=== PATIENT | female | born 1945 | race Caucasian/White ===

== ENCOUNTER → 2018-10-05 07:25 | Outpatient (CLI) | payer MEDICARE, OTHER, SELFPAY ==
[2018-10-05 08:16] LABS: Add Manual Diff / Slide Review NO; Basophils Absolute Auto 100 /uL (0-100); Basophils Percent Auto 0.8 % (0-2); Eosinophils Absolute Auto 300 /uL (0-450); Eosinophils Percent Auto 5.1 % (2-4); Hematocrit 40.6 % (36-46); Hemoglobin 13.9 g/dL (12.0-16.0); Lymphocytes Absolute Auto 1200 /uL (1100-4500); Lymphocytes Percent Auto 19.6 % (25-40); Mean Corpuscular HGB Conc 34.2 % (30-36); Mean Corpuscular Hemoglobin 31.7 PG (26-34); Mean Corpuscular Volume 92.9 fL (80-100); Monocytes Absolute Auto 400 /uL (0-900); Neutrophils Absolute Auto 4000 /uL (1500-7000); Neutrophils Percent Auto 67.5 % (50-75); Platelet Count 174 X10^3/uL (150-400); Red Blood Cell Count 4.37 X10^6/uL (4.0-5.2); Red Cell Distribution Width 13.5 % (11.6-14.8)
[2018-10-05 08:57] LABS: HEMOLYSIS < 15 (0-50); Iron 90 ug/dL (37-170)
[2018-10-05 09:07] LABS: Percent Iron Saturation 31 % (15-50); Total Iron Binding Capacity 293 ug/dL (265-497); Transferrin 227 mg/dL (206-381)
[2018-10-05 09:08] LABS: Alanine Aminotransferase 43 IU/L (9-52); Albumin 4.2 g/dL (3.5-5.0); Albumin Globulin Ratio 1.6 (1.0-2.8); Alkaline Phosphatase 61 U/L (38-126); Aspartate Aminotransferase 30 IU/L (14-36); BUN Creatinine Ratio 22.9 (6-22); Bilirubin Total 0.7 mg/dL (0.2-1.3); Blood Urea Nitrogen 16 mg/dL (7-17); Calcium 9.9 mg/dL (8.4-10.2); Carbon Dioxide 22 mmol/L (22-32); Chloride 110 mmol/L (98-107); Cholesterol 194 mg/dL (140-199); Creatinine Urine Random 141.5 mg/dL; Estimated Glomerular Filt Rate > 60.0 mL/min (>60); Globulin 2.7 g/dL (1.7-4.1); Glucose 95 mg/dL (80-110); HDL Cholesterol 47 mg/dL (40-60); HEMOLYSIS < 15 (0-50); LDL Cholesterol Calculated 125 mg/dL (<100); Potassium 3.8 mmol/L (3.4-5.1); Sodium 141 mmol/L (137-145); Total Protein 6.9 g/dL (6.3-8.2); Triglycerides 109 mg/dL (35-150)
[2018-10-05 09:13] LABS: Microalbumin Urine Random 2.7 mg/dL (0-1.6)
[2018-10-05 09:32] LABS: Ferritin 74.8 ng/mL (11.1-264)
[2018-10-05 09:46] LABS: Vitamin B12 432 pg/mL (239-931)
== END ==
PROVIDERS: Visit Provider Physician Assistant
DX: I10 Essential (primary) hypertension (principal); I49.9 Cardiac arrhythmia, unspecified; R01.1 Cardiac murmur, unspecified; R06.00 Dyspnea, unspecified; R06.01 Orthopnea; R06.02 Shortness of breath; R53.83 Other fatigue
CPT/HCPCS: 36415; 80053; 80061; 82043; 82570; 82607; 82728; 83540; 83550; 85025

== ENCOUNTER → 2018-10-13 08:16 | Outpatient (CLI) | payer MEDICARE, OTHER, SELFPAY ==
--- NOTE | 2018-10-13 08:17 | DI.ECHO.S_ITS ---
[facility] +---------+ : : [address] : [address] : : : : [id number] : : : : Phone: [phone]+ Echocardiogram Report + + :Name: ASIF FONTANEZ Study Date: 10/13/2018 Height: 70 in : :[facility] Weight: 209 lb : : Gender: Female BSA: 2.1 m2 : :: 1945 Age: 72 yrs BP: 140/74 mmHg: :Reason For Study: Murmur : : Performed By: Lulu Sparks : :Referring: LAURIE VILLALOBOS : + + Interpretation Summary Normal left ventricle size with ejection fraction 60-65%. Grade I diastolic dysfunction. Moderately dilated left atrium. Mild tricuspid regurgitation. There is no hemodynamically significant valvular aortic stenosis. Mild to moderate aortic regurgitation. The ascending aorta is moderate-severely enlarged (4.7 cm). The aortic arch is severely enlarged (4.6 cm). Procedure: A two-dimensional transthoracic echocardiogram with color flow and Doppler was performed. The study quality was technically adequate. There is no prior echocardiogram noted for this patient. The heart rate ranged between 44-50 bpm during the study. Left Ventricle: The left ventricle is normal in size. There is normal left ventricular wall thickness. The ejection fraction is estimated to be 60-65%. There are no focal wall motion abnormalities. Diastolic parameters suggest a relaxation abnormality of the left ventricle, consistent with probable normal filling pressures. Right Ventricle: The right ventricle grossly appears normal in size with probable normal systolic function. Atria: The left atrium is moderately dilated. Right atrial size is normal. The interatrial septum is intact with no evidence for an atrial septal defect. Mitral Valve: The mitral valve is normal in structure and function. There is no mitral regurgitation noted. Aortic Valve: The aortic valve is trileaflet. The aortic valve opens well. The calculated aortic valve area is 1.3 cm2. The peak aortic velocity is 2.3 m/sec. The aortic valve mean gradient is 9 mmHg. Severity ratio is 0.54. There is no hemodynamically significant valvular aortic stenosis. There is mild to moderate aortic regurgitation. Tricuspid Valve: The tricuspid valve leaflets are thin and pliable. There is mild tricuspid regurgitation. The right ventricular systolic pressure is estimated to be at least 24 mmHg based on an estimated right atrial pressure of 3 mm Hg. Pulmonic Valve: The pulmonic valve is not well seen, but is grossly normal. There is no pulmonic valvular regurgitation. Great Vessels: The aortic root is normal size. The ascending aorta is moderate-severely enlarged. The aortic arch is severely enlarged. The IVC is of normal diameter and collapses greater than 50% with a sniff. This suggests a low right atrial pressure of 3 mm Hg. Pericardium/ Pleura There is no pericardial effusion. There is no pleural effusion. MMode/2D Measurements & Calculations LVIDd: 4.2 cm LVOT diam: 2.0 cm LVIDs: 2.3 cm Ao root diam: 3.3 cm FS: 45.1 % Aortic Jxn: 3.2 cm EPSS: 0.48 cm asc Aorta Diam: 4.6 cm IVSd: 0.98 cm Ao Arch Diam (Prox Trans): 4.6 cm LVPWd: 1.0 cm LV michele. diameter/BSA (cm/m^2): 2.0 LV sys. diameter/BSA (cm/m^2): 1.1 LA dimension: 4.1 cm RA long axis: 5.5 cm LA A2 area: 27.2 cm2 RA area: 18.2 cm2 LA A4 area: 24.8 cm2 RA vol: 51.2 ml LA length (vol): 5.9 cm RA : 24.1 ml/m2 LA vol: 97.5 ml LA vol index: 45.9 ml/m2 Doppler Measurements & Calculations Ao V2 max: 227.6 cm/sec LVOT Max William: 100.7 cm/sec Ao V2 mean: 130.5 cm/sec LV V1 max P.1 mmHg Ao max P.7 mmHg LV V1 VTI: 25.8 cm Ao mean P.5 mmHg SIDNEY(I,D): 1.6 cm2 Ao V2 VTI: 47.8 cm SIDNEY(V,D): 1.3 cm2 sev ratio: 0.54 SIDNEY indexed to BSA (cm^2/m^2): 0.77 AI P1/2t: 1065 msec AI dec slope: 119.4 cm/sec2 MV E max william: 59.1 cm/sec TR max william: 227.6 cm/sec MV A max william: 90.8 cm/sec TR max P.7 mmHg MV E/A: 0.65 PA V2 max: 100.6 cm/sec Med Peak E' William: 5.6 cm/sec PA V2 mean: 58.6 cm/sec E/E' med: 10.6 PA mean P.7 mmHg Lat Peak E' William: 7.2 cm/sec PA Accel Time: 0.25 sec E/E' lat: 8.3 E/e' average: 9.4 MV dec time: 0.33 sec SV([facility]): 78.5 ml Electronically signed by: Zhane Hernández on Reading Physician:10/13/2018 03:49 PM
== END ==
PROVIDERS: Family Provider Family Medicine; Visit Provider Physician Assistant
DX: I08.2 Rheumatic disorders of both aortic and tricuspid valves (principal); I77.810 Thoracic aortic ectasia; R01.1 Cardiac murmur, unspecified; M85.852 Other specified disorders of bone density and structure, left thigh; Z78.0 Asymptomatic menopausal state; E28.39 Other primary ovarian failure; K52.9 Noninfective gastroenteritis and colitis, unspecified; I10 Essential (primary) hypertension; R53.83 Other fatigue; R06.00 Dyspnea, unspecified; Z90.722 Acquired absence of ovaries, bilateral
CPT/HCPCS: 77080; 93306

== ENCOUNTER 2018-11-06 22:31 | Emergency (ER) | payer MEDICARE, OTHER, SELFPAY ==
[2018-11-06 22:45] VITALS: BP 172/92; PULSE 73; RESP 18; TEMP 36.3; O2SAT 100; BMI 28.7
--- NOTE | 2018-11-06 22:56 | DI.RAD.S_ITS ---
PROCEDURE: XR CHEST 1V INDICATIONS: chest pain TECHNIQUE: One view of the chest was acquired. COMPARISON: [facility], , CT THORAX WITH CONTRAST, 06/18/2006, 12:41. FINDINGS: Surgical changes and devices: None. Lungs and pleura: Lungs are clear. No pleural effusions or pneumothorax. Mediastinum: Mediastinal contours appear normal. Heart size is normal. Bones and chest wall: No suspicious bony lesions. Overlying soft tissues appear unremarkable. IMPRESSION: No acute cardiopulmonary disease. Dictated by: Marlen Borges M.D. on 11/07/2018 at 9:29 Approved by: Marlen Borges M.D. on 11/07/2018 at 9:29
--- NOTE | 2018-11-06 23:10 | ED_ITS ---
HPI - Arrhythmia/Palpitations General Chief Complaint: Arrhythmia/Palpitations Stated Complaint: AFIB Time Seen by Provider: 11/06/18 22:33 Source: patient and family Mode of arrival: ambulatory Limitations: no limitations History of Present Illness HPI narrative: 72F nonsmoker with history undocumented a rhythm is, hypertension asthma presents with her in the chief complaint of an episode of palpitations just prior to arrival. 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 Her symptoms had resolved prior to her arrival. She denies any chest pain or shortness of breath. She de nies dizziness, weakness or lightheadedness. She denies any significant caffeine nicotine or alcohol use. MD complaint: rapid heart beat and heart racing Onset (ago): hour(s) Duration: now resolved Severity: mild Context: occurred during rest Associated symptoms: denies other symptoms Related Data Home Medications Medication Instructions Recorded Confirmed CA PANTOTHENATE/FOLIC ACID/VIT 1 tab PO QDAY #0 03/26/13 10/03/18 (MULTIVITAMIN) Calcium Carbonate/Vitamin D 1 tab PO .QDAY 10/03/18 10/03/18 VITAMIN A 1 cap PO .QDAY 10/03/18 10/03/18 Vitamin C 1 tab PO .QDAY PRN 10/03/18 10/03/18 Previous Rx's Medication Instructions Recorded albuterol sulfate HFA 90 2 puff INHALATION Q4-6H PRN #18 10/03/18 mcg/actuation aerosol inhaler gram fluticasone 50 mcg/actuation nasal 1 spray INTRANASAL BID PRN #1 bot 10/03/18 spray,suspension hydrochlorothiazide 12.5 mg tablet 12.5 mg PO DAILY #30 tab 10/03/18 lisinopril 10 mg tablet 10 mg PO BID #60 tab 10/03/18 pneumococcal 13-neftaly conj 0.5 ml IM ONCE #0.5 ml 10/03/18 vaccine-dip crm (PF) 0.5 mL IM syringe potassium chloride 20 meq PO DAILY 5 Days tab 11/06/18 Allergies Allergy/AdvReac Type Severity Reaction Status Date / Time Penicillins [PENICILLINS] Allergy Severe ANAPHYLAXIS Unverified 10/03/18 10:51 Review of Systems Constitutional Denies chills, Denies fever(s), Denies lethargy and Denies weakness Eyes Denies change in vision, Denies eye discharge, Denies irritation and Denies loss of vision ENT Ears, Nose, Mouth, and Throat: Denies change in voice, Denies neck pain and Denies sore throat Cardiovascular Denies chest pain, Reports irregular heart rhythm, Denies lightheadedness, Reports palpitations, Denies dyspnea, Denies dyspnea on exertion and Denies orthopnea Respiratory Denies cough, Denies dyspnea, Denies dyspnea on exertion and Denies wheezing Gastrointestinal Gastrointestinal: Denies abdominal pain, Denies change in bowel habits, Denies diarrhea, Denies nausea and Denies vomiting Genitourinary Denies hematuria, Denies flank pain, Denies urinary incontinence and Denies urinary urgency Musculoskeletal Denies neck pain Integumentary/Breasts Denies pruritus, Denies erythema, Denies rash and Denies wounds Neurologic Denies confusion, Denies loss of vision and Denies weakness Psychiatric Denies anxiety, Denies confusion, Denies depression, Denies homicidal ideation and Denies suicidal ideation Endocrine Reports palpitations Hematologic/Lymphatic Denies easy bruising Allergic/Immunologic Denies wheezing PFSH Surgical History Status post hysterectomy Social History Smoking Status: Never smoker second hand exposure: No alcohol intake: current (a glass of wine once in a while maybe 2 to 3 a month s.) substance use type: does not use Social History Smoking Status: Never smoker second hand exposure: No alcohol intake: current (a glass of wine once in a while maybe 2 to 3 a months.) substance use type: does not use Exam Narrative Exam Narrative: GENERAL: This is a well-nourished, well-developed patient, in mild distress. HEAD: Atraumatic. Normocephalic. No temporal or scalp tenderness. EYES: Pupils equal round and reactive. Extraocular motions intact. No scleral icterus. No injection or drainage. ENT: Nose without bleeding, purulent drainage or septal hematoma. Throat without erythema, tonsillar hypertrophy or exudate. Uvula midline. Airway patent. NECK: Trachea midline. No JVD or lymphadenopathy. Supple, nontender, no meni ngeal signs. CARDIOVASCULAR: Regular rate and rhythm without murmurs, gallops, or rubs. RESPIRATORY: Clear to auscultation. Breath sounds equal bilaterally. No wheezes, rales, or rhonchi. GASTROINTESTINAL: Abdomen soft, non-tender, nondistended. No hepato- splenomegaly, or palpable masses. No guarding. EXTREMITIES: No clubbing, cyanosis, or edema. No joint tenderness, effusion, or edema noted. BACK: Nontender without deformity or crepitance. No flank tenderness. NEURO: AOx3. SKIN: No rash or erythema. Initial Vital Signs Initial Vital Signs: Vital Signs Temperature 97.4 F L 11/06/18 22:45 Pulse Rate 73 11/06/18 22:45 Respiratory Rate 18 11/06/18 22:45 Blood Pressure 172/92 H 11/06/18 22:45 Pulse Oximetry 100 11/06/18 22:45 Course Orders Ordered: ED Orders 11/06/18 22:56 XR chest 1V Stat 11/06/18 23:18 Basic Metabolic Panel Stat Complete Blood Count AUTO DIFF Stat Magnesium Stat Thyroid Stimulating Hormone Stat Troponin & CK Cardiac Panel Stat Discontinued Medications Sodium Chloride (Normal Saline 0.9%) 1,000 mls @ 150 mls/hr IV CONT JOHNATHAN Last Admin: 11/06/18 23:55 Dose: Not Given Potassium Chloride (Potassium Chloride) 40 meq PO NOW ONE Stop: 11/06/18 23:43 Last Admin: 11/06/18 23:50 Dose: 40 meq Vital Signs - 8 hr 11/06/18 22:45 11/06/18 23:41 Temperature 97.4 F L Pulse Rate 73 72 Respiratory Rate 18 21 Blood Pressure 172/92 H Blood Pressure [Left Arm] 126/77 Pulse Oximetry 100 97 MDM - Arrhythmia/Palpitations Differential Diagnosis Differential diagnosis: Likely palpitations Medical Records Attestation: I reviewed the patient's medical records. Lab Data Attestation: I reviewed the patient's lab results. Result diagrams: 11/06/18 23:18 11/06/18 23:18 Lab Results 11/06/18 11/06/18 11/06/18 Range/Units 23:18 23:18 23:18 WBC 5.9 (4.5-11.0) X10^3/uL RBC 4.35 (4.0-5.2) X10^6/uL Hgb 13.7 (12.0-16.0) g/dL Hct 39.2 (36-46) % MCV 90.3 (80-100) fL MCH 31.5 (26-34) PG MCHC 34.9 (30-36) % RDW 12.6 (11.6-14.8) % Plt Count 169 (150-400) X10^3/uL Neut % (Auto) 62.3 (50-75) % Lymph % (Auto) 23.4 L (25-40) % [place] % (Auto) 8.3 (3-14) % Eos % (Auto) 4.9 H (2-4) % Baso % (Auto) 1.1 (0-2) % Neut # (Auto) 3700 (1186-3700) /uL Lymph # (Auto) 1400 (3500-8986) /uL [place] # (Auto) 500 (0-900) /uL Eos # (Auto) 300 (0-450) /uL Baso # (Auto) 100 (0-100) /uL Sodium 140 (137-145) mmol/L Potassium 3.1 L (3.4-5.1) mmol/L Chloride 110 H (98-107) mmol/L Carbon Dioxide 20 L (22-32) mmol/L BUN 24 H (7-17) mg/dL Creatinine 0.80 (0.52-1.04) mg/dL Estimated GFR > 60.0 (>60) mL/min BUN/Creatinine Ratio 30.0 H (6-22) Glucose 105 (80-110) mg/dL Calcium 10.3 H (8.4-10.2) mg/dL Magnesium 1.8 (1.6-2.3) mg/dL Total Creatine Kinase 256 H (30-135) U/L CK-MB (CK-2) 13.40 H (<2.37) ng/mL CK-MB (CK-2) Rel Index 5.2 H (1.5-5.0) % Troponin I 0.017 (0.01-0.034) ng/mL TSH 3.24 (0.47-4.68) uIU/mL ECG Data Attestation: I personally reviewed and interpreted this ECG as follows: Prior ECG tracings: not available for review Interpretation: EKG is normal sinus rhythm rate [ 73] and free of any signs of ischemia or ectopy. No ST segmental elevation or depression. No T wave inversions MDM Narrative Medical decision making narrative: Multiple etiologies for patient's symptoms considered including: [Atrial fibrillation, other tachyarrhythmia, versus other potentially relieve his] Patient's symptoms improved or duration of stay with above-stated therapies. Findings and discharge diagnosis discussed with patient/family followed by verbalization of understanding Return precautions discussed with patient/family whom verbalize understanding. Discharge Plan Departure Patient Disposition: Home Clinical Impression: Heart palpitations, Acute hypokalemia Discharge Date/Time: 11/07/18 00:08 Interventions: ED Discharge Assessment Last Done: 11/07/18 00:07 Instructions: Arrhythmias Activity Restrictions/Additional Instructions: *You have been diagnosed with [ hypokalemia and arrhythmia, likely AFib ] *What to do: *Take medications as directed *Follow up with your primary care provider in 2-3 days, call for an appointment. Let them know you were seen in the Emergency Department and that we ask that you be seen in follow up *Return to ER if you should have any new, worsening or concerning symptoms Prescriptions: New potassium chloride 20 mEq tablet extended release 20 meq PO DAILY 5 Days RF: 0 No Action Calcium Carbonate/Vitamin D 1 tab PO .QDAY RF: 0 VITAMIN A 1 cap PO .QDAY RF: 0 Vitamin C 1 tab PO .QDAY PRNRF: 0 hydrochlorothiazide 12.5 mg tablet 12.5 mg PO DAILY Qty: 30 RF: 1 pneumoc 13-neftaly conj-dip cr(PF) [Prevnar 13 (PF)] 0.5 mL syringe 0.5 ml IM ONCE Qty: 0.5 RF: 0 lisinopril 10 mg tablet 10 mg PO BID Qty: 60 RF: 1 fluticasone [Flonase Allergy Relief] 50 mcg/actuation spray,suspension 1 spray Intranasal BID PRN (Reason: allergy symptoms) Qty: 1 RF: 1 albuterol sulfate 90 mcg/actuation HFA aerosol inhaler 2 puff INHALATION Q4-6H PRN (Reason: shortness of breath or wheezing) Qty: 18 RF: 3 CA PANTOTHENATE/FOLIC ACID/VIT (MULTIVITAMIN) 1 tab PO QDAY Qty: 0 RF: 0 Referrals: Hortensia Mina MD [Physician] -
[2018-11-06 23:29] LABS: Add Manual Diff / Slide Review NO; Basophils Absolute Auto 100 /uL (0-100); Basophils Percent Auto 1.1 % (0-2); Eosinophils Absolute Auto 300 /uL (0-450); Eosinophils Percent Auto 4.9 % (2-4); Hematocrit 39.2 % (36-46); Hemoglobin 13.7 g/dL (12.0-16.0); Lymphocytes Absolute Auto 1400 /uL (1100-4500); Lymphocytes Percent Auto 23.4 % (25-40); Mean Corpuscular HGB Conc 34.9 % (30-36); Mean Corpuscular Hemoglobin 31.5 PG (26-34); Mean Corpuscular Volume 90.3 fL (80-100); Monocytes Absolute Auto 500 /uL (0-900); Monocytes Percent Auto 8.3 % (3-14); Neutrophils Absolute Auto 3700 /uL (1500-7000); Neutrophils Percent Auto 62.3 % (50-75); Platelet Count 169 X10^3/uL (150-400); Red Blood Cell Count 4.35 X10^6/uL (4.0-5.2); Red Cell Distribution Width 12.6 % (11.6-14.8); White Blood Cell Count 5.9 X10^3/uL (4.5-11.0)
[2018-11-06 23:35] LABS: Blood Urea Nitrogen 24 mg/dL (7-17); Calcium 10.3 mg/dL (8.4-10.2); Carbon Dioxide 20 mmol/L (22-32); Chloride 110 mmol/L (98-107); Creatine Kinase 256 U/L (30-135); Estimated Glomerular Filt Rate > 60.0 mL/min (>60); Glucose 105 mg/dL (80-110); HEMOLYSIS < 15 (0-50); Magnesium 1.8 mg/dL (1.6-2.3); Potassium 3.1 mmol/L (3.4-5.1); Sodium 140 mmol/L (137-145)
[2018-11-06 23:41] VITALS: BP 126/77; PULSE 72; RESP 21; O2SAT 97
[2018-11-06 23:47] LABS: Troponin I 0.017 ng/mL (0.01-0.034)
[2018-11-06 23:50] LABS: CKMB % Relative Index 5.2 % (1.5-5.0)
[2018-11-06] MEDS: POTASSIUM CHLORIDE 20 MEQ/15 ML UDC 40 MEQ PO (23:50)
[2018-11-07 00:29] LABS: Thyroid Stimulating Hormone 3.24 uIU/mL (0.47-4.68)
== END 2018-11-07 00:08 | disposition home or self-care (01) ==
PROVIDERS: Emergency Provider Emergency Medicine; Family Provider Family Medicine
DX: R00.2 Palpitations (principal); E87.6 Hypokalemia
CPT/HCPCS: 36415; 71045; 80048; 82550; 82553; 83735; 84443; 84484; 85025; 93005; 93041; 99284; 99285

== ENCOUNTER 2018-12-24 19:49 | Emergency (ER) | payer MEDICARE, OTHER, SELFPAY ==
[2018-12-24 20:01] VITALS: BP 197/86; PULSE 64; RESP 16; TEMP 36.6; O2SAT 100; BMI 29.2
--- NOTE | 2018-12-24 20:11 | ED_ITS ---
HPI - General Adult <MIRANDA Soto - Last Filed: 12/24/18 21:07> General Chief complaint: Hypertension Stated complaint: states blood pressure is high Time Seen by Provider: 12/24/18 19:56 Source: patient Mode of arrival: ambulatory Limitations: no limitations History of Present Illness HPI narrative: pt states her bp has been running high, so her pcp increased her lisinolpril from 20mg to 40mg once a day, and she takes it at night and took her does about 30min ago, tonight when she checked her bp is was 185/105 and that scared her so she came here, she also feels a little dizzy and has headache Onset (ago): minute(s) Relieving factors: none Exacerbating factors: none Associated symptoms: shortness of breath (says she has been sob for about 2 weeks and thinks that is from her allergies and asthma issues, nothing new or different tonight) Treatments prior to arrival: other (lisinopril 40mg ) Related Data Home Medications Medication Instructions Recorded Confirmed CA PANTOTHENATE/FOLIC ACID/VIT 1 tab PO QDAY #0 03/26/13 10/03/18 (MULTIVITAMIN) Calcium Carbonate/Vitamin D 1 tab PO .QDAY 10/03/18 10/03/18 VITAMIN A 1 cap PO .QDAY 10/03/18 10/03/18 Vitamin C 1 tab PO .QDAY PRN 10/03/18 10/03/18 lisinopril 40 mg PO DAILY 12/24/18 Previous Rx's Medication Instructions Recorded albuterol sulfate HFA 90 2 puff INHALATION Q4-6H PRN #18 10/03/18 mcg/actuation aerosol inhaler gram fluticasone propionate 50 1 spray INTRANASAL BID PRN #1 bot 10/03/18 mcg/actuation nasal spray,suspension pneumococcal 13-neftaly conj 0.5 ml IM ONCE #0.5 ml 10/03/18 vaccine-dip crm (PF) 0.5 mL IM syringe hydrochlorothiazide 12.5 mg tablet 12.5 mg PO DAILY #30 tab 11/29/18 Allergies Allergy/AdvReac Type Severity Reaction Status Date / Time Penicillins [PENICILLINS] Allergy Severe ANAPHYLAXIS Verified 12/24/18 20:00 Review of Systems <MIRANDA Soto - Last Filed: 12/24/18 21:07> Constitutional Reports as per HPI, Reports system reviewed and no additional complaints, except as docu, Denies fever(s) and Reports headache(s) Eyes Denies blurry vision, Denies change in vision, Denies loss of vision, Denies other visual disturbances and Denies eye pain ENT Ears, Nose, Mouth, and Throat: Reports dizziness, Denies otalgia, Denies facial pain, Reports headache(s) and Denies neck pain Cardiovascular Denies chest pain, Denies irregular heart rhythm and Reports dyspnea Respiratory Reports dyspnea Musculoskeletal Denies back pain, Denies neck pain and Denies numbness Neurologic Reports dizziness, Reports headache(s), Denies focal weakness, Denies loss of vision, Denies numbness and Denies other visual disturbances PFSH <MIRANDA Soto - Last Filed: 12/24/18 21:07> Surgical History Status post hysterectomy Social History Smoking Status: Never smoker second hand exposure: No alcohol intake: current (a glass of wine once in a while maybe 2 to 3 a months.) substance use type: does not use Social History Smoking Status: Never smoker second hand exposure: No alcohol intake: current (a glass of wine once in a while maybe 2 to 3 a months.) substance use type: does not use Exam <MIRANDA Soto - Last Filed: 12/24/18 21:07> Initial Vital Signs Initial Vital Signs: Vital Signs Temperature 97.8 F 12/24/18 20:01 Pulse Rate 64 12/24/18 20:01 Respiratory Rate 16 12/24/18 20:01 Blood Pressure 197/86 H 12/24/18 20:01 Pulse Oximetry 100 12/24/18 20:01 Const General: cooperative, healthy appearing, comfortable, well developed and well groomed Nutritional Appearance: average body habitus Orientation: alert, awake and oriented x3 HENMT Head: normal to inspection and normocephalic Ears: hearing grossly normal bilaterally, external ears normal, TM's normal bilaterally and mastoids normal Nose: external nose normal and nares normal Face and sinus: normal facial exam, sinuses nontender and face symmetric Mouth: oral mucosae normal, lip normal, tongue normal, oropharynx normal and moist mucous membranes Teeth and gingiva: dentition normal and gingiva normal Throat: posterior oropharynx normal, tonsils normal and uvula midline Eyes General: appearance normal, both eyes and all related structures Visual Patel: normal visual patel by confrontation Eyelids: eyelids normal Conjunctivae: conjunctivae normal Sclera: sclerae normal Pupils: PERRL EOM: EOM intact bilaterally Neck Neck: normal visual inspection, full ROM, no meningeal signs, trachea midline, supple and No lymphadenopathy Chest Chest: normal inspection of the chest Resp Effort & Inspection: normal respiratory effort and able to speak in complete sentences Auscultation: clear to auscultation bilaterally Cardio Rate: regular rate Rhythm: regular rhythm Heart Sounds: S1 normal and S2 normal Back/Spine/Pelvis Cervical Spine: cervical ROM normal Thoracic/Lumbar Spine: thoraco-lumbar ROM normal Skin General: no rashes or lesions noted, elasticity normal, turgor normal and dry skin Neuro General: alert, awake, oriented x3 and meningeal signs present Cognition: normal cognition Speech: speech normal Gait: normal gait Motor: muscle tone normal throughout Sensory Exam: no sensory deficits noted Extrem General: normal to inspection and full ROM Psych Appearance: grossly normal and well kempt Mental Status: mental status grossly normal Speech and Movement: speech and movement normal Mood: congruent mood Affect: normal affect Attitude: cooperative Thought Process: normal Thought Content: normal Judgment: judgment good <Lisa Ball DO - Last Filed: 12/25/18 09:24> Initial Vital Signs Initial Vital Signs: Vital Signs Temperature 97.8 F 12/24/18 20:01 Pulse Rate 64 12/24/18 20:01 Respiratory Rate 16 12/24/18 20:01 Blood Pressure 197/86 H 12/24/18 20:01 Pulse Oximetry 100 12/24/18 20:01 Course <MIRANDA Soto - Last Filed: 12/24/18 21:07> Course Narrative: 2100 results and dc plan discussed, pt to continue to monitor her bp and call her dr with her results, current bp 150/70 and pt says she feels fine and back to normal now Orders Ordered: ED Orders 12/24/18 20:05 EKG-12 Lead Stat 12/24/18 20:20 Complete Blood Count AUTO DIFF Stat Comprehensive Metabolic Panel Stat Troponin & CK Cardiac Panel Stat Vital Signs - 8 hr 12/24/18 20:01 12/24/18 20:51 Temperature 97.8 F Pulse Rate 64 58 L Respiratory Rate 16 17 Blood Pressure 197/86 H Blood Pressure [Right Arm] 163/65 H Pulse Oximetry 100 <Lisa Ball DO - Last Filed: 12/25/18 09:24> Orders Ordered: ED Orders 12/24/18 20:05 EKG-12 Lead Stat 12/24/18 20:20 Complete Blood Count AUTO DIFF Stat Comprehensive Metabolic Panel Stat Troponin & CK Cardiac Panel Stat Vital Signs - 8 hr 12/24/18 20:01 12/24/18 20:51 Temperature 97.8 F Pulse Rate 64 58 L Respiratory Rate 16 17 Blood Pressure 197/86 H Blood Pressure [Right Arm] 163/65 H Pulse Oximetry 100 Medical Decision Making <MIRANDA Soto - Last Filed: 12/24/18 21:07> Differential Diagnosis uncontrolled htn, htn crisis, tia, cva, mi, anxiety, electrolyte imbalance Lab Data Result diagrams: 12/24/18 20:20 12/24/18 20:20 Lab Results 12/24/18 12/24/18 Range/Units 20:20 20:20 WBC 7.3 (4.5-11.0) X10^3/uL RBC 3.82 L (4.0-5.2) X10^6/uL Hgb 12.0 (12.0-16.0) g/dL Hct 34.9 L (36-46) % MCV 91.4 (80-100) fL MCH 31.5 (26-34) PG MCHC 34.5 (30-36) % RDW 13.4 (11.6-14.8) % Plt Count 176 (150-400) X10^3/uL Neut % (Auto) 65.1 (50-75) % Lymph % (Auto) 21.8 L (25-40) % [place] % (Auto) 7.5 (3-14) % Eos % (Auto) 4.7 H (2-4) % Baso % (Auto) 0.9 (0-2) % Neut # (Auto) 4700 (3657-8365) /uL Lymph # (Auto) 1600 (3058-0528) /uL [place] # (Auto) 500 (0-900) /uL Eos # (Auto) 300 (0-450) /uL Baso # (Auto) 100 (0-100) /uL Sodium 140 (137-145) mmol/L Potassium 3.4 (3.4-5.1) mmol/L Chloride 108 H (98-107) mmol/L Carbon Dioxide 23 (22-32) mmol/L BUN 20 H (7-17) mg/dL Creatinine 0.90 (0.52-1.04) mg/dL Estimated GFR > 60.0 (>60) mL/min BUN/Creatinine Ratio 22.2 H (6-22) Glucose 96 (80-110) mg/dL Calcium 9.8 (8.4-10.2) mg/dL Total Bilirubin 0.3 (0.2-1.3) mg/dL AST 36 (14-36) IU/L ALT 48 (9-52) IU/L Alkaline Phosphatase 55 (38-126) U/L Total Creatine Kinase 534 H (30-135) U/L CK-MB (CK-2) 18.50 H (<2.37) ng/mL CK-MB (CK-2) Rel Index 3.5 (1.5-5.0) % Troponin I 0.014 (0.01-0.034) ng/mL Total Protein 6.9 (6.3-8.2) g/dL Albumin 4.2 (3.5-5.0) g/dL Globulin 2.7 (1.7-4.1) g/dL Albumin/Globulin Ratio 1.6 (1.0-2.8) ECG Data Attestation: I personally reviewed and interpreted this ECG as follows: (ekg reviewed by me and Dr Bolaños, sinus elisa, hr 59) Prior ECG tracings: not available for review <Lisa Ball, - Last Filed: 12/25/18 09:24> Lab Data Lab Results 12/24/18 12/24/18 Range/Units 20:20 20:20 WBC 7.3 (4.5-11.0) X10^3/uL RBC 3.82 L (4.0-5.2) X10^6/uL Hgb 12.0 (12.0-16.0) g/dL Hct 34.9 L (36-46) % MCV 91.4 (80-100) fL MCH 31.5 (26-34) PG MCHC 34.5 (30-36) % RDW 13.4 (11.6-14.8) % Plt Count 176 (150-400) X10^3/uL Neut % (Auto) 65.1 (50-75) % Lymph % (Auto) 21.8 L (25-40) % [place] % (Auto) 7.5 (3-14) % Eos % (Auto) 4.7 H (2-4) % Baso % (Auto) 0.9 (0-2) % Neut # (Auto) 4700 (8986-6941) /uL Lymph # (Auto) 1600 (8159-5731) /uL [place] # (Auto) 500 (0-900) /uL Eos # (Auto) 300 (0-450) /uL Baso # (Auto) 100 (0-100) /uL Sodium 140 (137-145) mmol/L Potassium 3.4 (3.4-5.1) mmol/L Chloride 108 H (98-107) mmol/L Carbon Dioxide 23 (22-32) mmol/L BUN 20 H (7-17) mg/dL Creatinine 0.90 (0.52-1.04) mg/dL Estimated GFR > 60.0 (>60) mL/min BUN/Creatinine Ratio 22.2 H (6-22) Glucose 96 (80-110) mg/dL Calcium 9.8 (8.4-10.2) mg/dL Total Bilirubin 0.3 (0.2-1.3) mg/dL AST 36 (14-36) IU/L ALT 48 (9-52) IU/L Alkaline Phosphatase 55 (38-126) U/L Total Creatine Kinase 534 H (30-135) U/L CK-MB (CK-2) 18.50 H (<2.37) ng/mL CK-MB (CK-2) Rel Index 3.5 (1.5-5.0) % Troponin I 0.014 (0.01-0.034) ng/mL Total Protein 6.9 (6.3-8.2) g/dL Albumin 4.2 (3.5-5.0) g/dL Globulin 2.7 (1.7-4.1) g/dL Albumin/Globulin Ratio 1.6 (1.0-2.8) ECG Data Attestation: I personally reviewed and interpreted this ECG as follows: Prior ECG tracings: available for review Interpretation: Sinus rhythm rate 59 year interval 183 low voltage, no ST changes similar to previous EKG Discharge Plan Departure Patient Disposition: Home Clinical Impression: Hypertension Discharge Date/Time: 12/24/18 21:27 Interventions: ED Discharge Assessment Last Done: 12/24/18 21:26 Instructions: DI for High Blood Pressure Prescriptions: No Action Calcium Carbonate/Vitamin D 1 tab PO .QDAY RF: 0 VITAMIN A 1 cap PO .QDAY RF: 0 Vitamin C 1 tab PO .QDAY PRNRF: 0 pneumoc 13-neftaly conj-dip cr(PF) [Prevnar 13 (PF)] 0.5 mL syringe 0.5 ml IM ONCE Qty: 0.5 RF: 0 fluticasone propionate [Flonase Allergy Relief] 50 mcg/actuation spray,suspension 1 spray Intranasal BID PRN (Reason: allergy symptoms) Qty: 1 RF: 1 albuterol sulfate 90 mcg/actuation HFA aerosol inhaler 2 puff INHALATION Q4-6H PRN (Reason: shortness of breath or wheezing) Qty: 18 RF: 3 CA PANTOTHENATE/FOLIC ACID/VIT (MULTIVITAMIN) 1 tab PO QDAY Qty: 0 RF: 0 hydrochlorothiazide 12.5 mg tablet 12.5 mg PO DAILY Qty: 30 RF: 0 lisinopril 10 mg tablet 40 mg PO DAILY RF: 0 Referrals: Marcel Soto [Family Provider] - <Lisa Ball DO - Last Filed: 12/25/18 09:24> Cosign ED Attending Cosignature Attestation: I was immediately available in the department for consultation. Documentation has been reviewed. I agree with assessment and plan.
[2018-12-24 20:30] LABS: Add Manual Diff / Slide Review NO; Basophils Absolute Auto 100 /uL (0-100); Basophils Percent Auto 0.9 % (0-2); Eosinophils Absolute Auto 300 /uL (0-450); Eosinophils Percent Auto 4.7 % (2-4); Hematocrit 34.9 % (36-46); Lymphocytes Absolute Auto 1600 /uL (1100-4500); Lymphocytes Percent Auto 21.8 % (25-40); Mean Corpuscular HGB Conc 34.5 % (30-36); Mean Corpuscular Hemoglobin 31.5 PG (26-34); Mean Corpuscular Volume 91.4 fL (80-100); Monocytes Absolute Auto 500 /uL (0-900); Monocytes Percent Auto 7.5 % (3-14); Neutrophils Absolute Auto 4700 /uL (1500-7000); Neutrophils Percent Auto 65.1 % (50-75); Platelet Count 176 X10^3/uL (150-400); Red Blood Cell Count 3.82 X10^6/uL (4.0-5.2); Red Cell Distribution Width 13.4 % (11.6-14.8); White Blood Cell Count 7.3 X10^3/uL (4.5-11.0)
[2018-12-24 20:40] LABS: Alanine Aminotransferase 48 IU/L (9-52); Albumin 4.2 g/dL (3.5-5.0); Albumin Globulin Ratio 1.6 (1.0-2.8); Alkaline Phosphatase 55 U/L (38-126); Aspartate Aminotransferase 36 IU/L (14-36); BUN Creatinine Ratio 22.2 (6-22); Bilirubin Total 0.3 mg/dL (0.2-1.3); Blood Urea Nitrogen 20 mg/dL (7-17); Calcium 9.8 mg/dL (8.4-10.2); Carbon Dioxide 23 mmol/L (22-32); Chloride 108 mmol/L (98-107); Creatine Kinase 534 U/L (30-135); Estimated Glomerular Filt Rate > 60.0 mL/min (>60); Globulin 2.7 g/dL (1.7-4.1); Glucose 96 mg/dL (80-110); HEMOLYSIS < 15 (0-50); Potassium 3.4 mmol/L (3.4-5.1); Sodium 140 mmol/L (137-145); Total Protein 6.9 g/dL (6.3-8.2)
[2018-12-24 20:51] VITALS: BP 163/65; PULSE 58; RESP 17
[2018-12-24 20:52] LABS: Troponin I 0.014 ng/mL (0.01-0.034)
[2018-12-24 20:56] LABS: CKMB % Relative Index 3.5 % (1.5-5.0)
[2018-12-24 21:26] VITALS: BP 151/76; PULSE 59; RESP 18; O2SAT 98
== END 2018-12-24 21:27 | disposition home or self-care (01) ==
PROVIDERS: Emergency Provider Nurse Practitioner; Family Provider Family Medicine
DX: I10 Essential (primary) hypertension (principal); R42 Dizziness and giddiness; R06.02 Shortness of breath; R51 Headache
CPT/HCPCS: 36591; 80053; 82550; 82553; 84484; 85025; 93005; 93041; 99283; 99284

== ENCOUNTER → 2019-03-01 08:03 | Outpatient (CLI) | payer MEDICARE, OTHER, SELFPAY ==
--- NOTE | 2019-03-01 08:06 | DI.MG.S_ITS ---
BILATERAL DIGITAL SCREENING MAMMOGRAM 3D/2D WITH CAD: 03/01/2019 CLINICAL: Routine screening. Family history of breast cancer. Comparison is made to exams dated: 11/23/2017 mammogram, 11/22/2016 mammogram, 11/20/2015 mammogram, 12/13/2013 mammogram, and 10/26/2012 mammogram - [facility]. There are scattered fibroglandular elements in both breasts. Current study was also evaluated with a Computer Aided Detection (CAD) system. There are benign post operative findings in the left breast. There are mole markers on the left breast. No significant masses, calcifications, or other findings are seen in either breast. There has been no significant interval change. IMPRESSION: There is no mammographic evidence of malignancy. A 1 year screening mammogram is recommended. This exam was interpreted at Station ID: [id number]. NOTE: For mammograms, a report in lay terms will be sent to the patient. Approximately 15% of breast malignancies will not be visualized mammographically. In the management of a palpable breast mass, a negative mammogram must not discourage biopsy of a clinically suspicious lesion. Electronically Signed By: Ruben gutierrez/tiffanie:03/01/2019 10:06:55 letter sent: Normal Exam ACR BI-RADS Category 2: Benign Finding(s) 3342F
== END ==
PROVIDERS: Family Provider Family Medicine; Visit Provider Physician Assistant
DX: Z12.31 Encounter for screening mammogram for malignant neoplasm of breast (principal); Z80.3 Family history of malignant neoplasm of breast
CPT/HCPCS: 77063; 77067

== ENCOUNTER 2019-03-11 08:11 | Emergency (ER) | payer MEDICARE, OTHER, SELFPAY ==
[2019-03-11 08:29] VITALS: BP 156/85; PULSE 57; RESP 16; TEMP 36.3; O2SAT 100; BMI 30.1
--- NOTE | 2019-03-11 11:11 | PC.NURSE ---
pt c/o mammogram causing splitting in her skin under her breasts at crease line.
[2019-03-11 11:24] VITALS: PULSE 57; RESP 18; O2SAT 95
--- NOTE | 2019-03-11 11:24 | ED_ITS ---
HPI - Skin/Abscess/Foreign Bdy General Chief complaint: Skin/Abscess/Foreign Body Stated complaint: Blisters from Mammogram Time Seen by Provider: 03/11/19 10:43 Source: patient Mode of arrival: ambulatory Limitations: no limitations History of Present Illness HPI narrative: This is a 73-year-old female comes to the emergency department with complaint of rash underneath her right breast. Patient states that it st arted after she had her mammogram on the 01 of March. Patient states that they always crack the skin underneath the breast when she gets her mammograms. She gets 1 yearly. She always gets a rash afterwards. This sure she states a little bit worse. She also notes on the other side as well. She states that she felt some wetness and is had a little bit of pain. Patient states that it was extending further along the crease underneath her breast but has actually decreased in size. She denies any fevers or chills, she denies any rash elsewhere. No new chest pain, no shortness of breath, no nausea no vomiting no other GI or urinary symptoms. Patient has not used any topical creams. She did not take anything for pain at home. Related Data Home Medications Medication Instructions Recorded Confirmed CA PANTOTHENATE/FOLIC ACID/VIT 1 tab PO QDAY #0 03/26/13 01/08/19 (MULTIVITAMIN) amlodipine 10 mg tablet 10 mg PO DAILY 01/08/19 01/08/19 atorvastatin 10 mg tablet 10 mg PO DAILY 01/08/19 01/08/19 benazepril 40 mg tablet 40 mg PO DAILY 01/08/19 01/08/19 Previous Rx's Medication Instructions Recorded albuterol sulfate HFA 90 2 puff INHALATION Q4-6H PRN #18 10/03/18 mcg/actuation aerosol inhaler gram fluticasone propionate 50 1 spray INTRANASAL BID PRN #1 bot 10/03/18 mcg/actuation nasal spray,suspension pneumococcal 13-neftaly conj 0.5 ml IM ONCE #0.5 ml 10/03/18 vaccine-dip crm (PF) 0.5 mL IM syringe azithromycin 500 mg tablet See Rx Instructions PO .COMPLEX #3 01/12/19 tab terbinafine HCl 1 applictn TOP BID #12 gram 03/11/19 Allergies Allergy/AdvReac Type Severity Reaction Status Date / Time Penicillins [PENICILLINS] Allergy Severe ANAPHYLAXIS Verified 03/11/19 08:29 Review of Systems Review of Systems ROS Unobtainable: All systems reviewed & are unremarkable except as noted in HPI and below Constitutional Denies chills, Denies fever(s), Denies lethargy and Denies weakness Cardiovascular Denies chest pain, Denies dyspnea and Denies dyspnea on exertion Respiratory Denies dyspnea and Denies dyspnea on exertion Gastrointestinal Gastrointestinal: Denies abdominal pain, Denies change in bowel habits, Denies diarrhea, Denies nausea and Denies vomiting Genitourinary Denies dysuria and Denies urinary urgency Integumentary/Breasts Reports as per HPI, Reports changing lesions, Denies pruritus, Reports erythema, Reports rash, Reports skin pain (discomfort), Denies sores, Denies unusual bruising and Reports wounds (resolved.) Neurologic Denies weakness [facility] Surgical History Status post hysterectomy Social History Smoking Status: Never smoker second hand exposure: No alcohol intake: current (a glass of wine once in a while maybe 2 to 3 a months.) substance use type: does not use Social History Smoking Status: Never smoker second hand exposure: No alcohol intake: current (a glass of wine once in a while maybe 2 to 3 a months.) substance use type: does not use Exam Narrative Exam Narrative: GENERAL: Alert and oriented x three, obese, well appearing female in no acute distress. HEENT: Head normocephalic, atraumatic, EOMI, pupils reactive, face symmetric, moist mucous membranes NECK: Supple, full range of motion CARDIOVASCULAR: Regular rate and rhythm without murmurs, rubs or gallops. Nontender to palpation. RESPIRATORY: Breath sounds equal bilaterally, no wheezes rales or rhonchi. ABDOMEN: Soft, nontender. Normoactive bowel sounds all 4 quadrants. No guarding or rebound, rigidity, no mass : No CVA tenderness EXTREMITIES: Normal range of motion, no clubbing or edema. Neurovascularly intact NEUROLOGICAL: Cranial nerves II through XII grossly intact. Moving all extremities SKIN: Warm, dry, no petechiae, in the crease below both breasts patient has a erythematous scalloped patch of skin. On the right it is about cm by 3 cm and on the left it is about a 0.5 cm by 2 cm. Area is nontender to touch. There is slight weeping. There are no obvious blisters or vesicles. It is not extending to other locations. Initial Vital Signs Initial Vital Signs: Vital Signs Temperature 97.4 F L 03/11/19 08:29 Pulse Rate 57 L 03/11/19 08:29 Respiratory Rate 16 03/11/19 08:29 Blood Pressure 156/85 H 03/11/19 08:29 Pulse Oximetry 100 03/11/19 08:29 Course Vital Signs - 8 hr 03/11/19 11:24 Pulse Rate 57 L Respiratory Rate 18 Pulse Oximetry 95 MDM - Skin/Abscess/Foreign Bdy MDM Narrative Medical decision making narrative: Discussed with patient likely had some localized trauma that irritated the area. Appears to be a fungal infection particularly bilateral beneath the breast. Discussed with patient we will do some topical antifungal she can do Tylenol as needed for pain as ibuprofen irritates her stomach. Patient and I discussed that she needs to follow up with her primary care for recheck if it is not resolved or is not resolving with the antifungal. Discharge Plan Departure Patient Disposition: Home Clinical Impression: Rash Discharge Date/Time: 03/11/19 11:25 Interventions: ED Discharge Assessment Last Done: 03/11/19 11:24 Activity Restrictions/Additional Instructions: Follow-up in the next week with your primary care if your symptoms are not resolving with the topical ointment. Apply ointment twice daily until symptoms resolve. Maximum time is 2 weeks, then see your physician. Keep area dry. Avoid tight fitting a garment that rub the area. Return to the emergency department for fevers greater than 100.4 F, worsening rash, new chest pain, shortness of breath, passing out, persistent vomiting or other new or concerning symptoms. Prescriptions: New terbinafine HCl 1 % cream 1 applictn TOP BID Qty: 12 RF: 0 No Action pneumoc 13-neftaly conj-dip cr(PF) [Prevnar 13 (PF)] 0.5 mL syringe 0.5 ml IM ONCE Qty: 0.5 RF: 0 fluticasone propionate [Flonase Allergy Relief] 50 mcg/actuation spray,suspension 1 spray Intranasal BID PRN (Reason: allergy symptoms) Qty: 1 RF: 1 albuterol sulfate 90 mcg/actuation HFA aerosol inhaler 2 puff INHALATION Q4-6H PRN (Reason: shortness of breath or wheezing) Qty: 18 RF: 3 CA PANTOTHENATE/FOLIC ACID/VIT (MULTIVITAMIN) 1 tab PO QDAY Qty: 0 RF: 0 azithromycin 500 mg tablet See Rx Instructions PO .COMPLEX Qty: 3 RF: 0 benazepril 40 mg tablet 40 mg PO DAILY RF: 0 amlodipine 10 mg tablet 10 mg PO DAILY RF: 0 atorvastatin 10 mg tablet 10 mg PO DAILY RF: 0 Referrals: Denisse Norton PA-C [Primary Care Provider] -
== END 2019-03-11 11:25 | disposition home or self-care (01) ==
PROVIDERS: Emergency Provider Emergency Medicine; PCP Physician Assistant
DX: R21 Rash and other nonspecific skin eruption (principal)
CPT/HCPCS: 99282

== ENCOUNTER → 2019-10-05 09:00 | Outpatient (CLI) | payer MEDICARE, OTHER, SELFPAY ==
--- NOTE | 2019-10-05 | DI.ECHO.S_ITS ---
[place] [facility]---------+ [facility] +---------+ : : [address] : : : : [id number] : : : : Phone: [phone] Echocardiogram Report + + :Name: ASIF FONTANEZ Study Date: 10/05/2019 Height: 70 in : :[facility] Exam Location: [place] Weight: 210 lb : : Gender: Female BSA: 2.1 m2 : :: 1945 Age: 73 yrs BP: 152/82 mmHg: :Reason For Study: Aortic valve stenosis : :Ordering Physician: Lydia Oliver : :[place] Performed By: Mini Page : :Referring: LYDIA MINA : + + Interpretation Summary 1) Normal left ventricular thickness, size, wall motion, and systolic function (EF 60-65%). 2) Normal right ventricular size and function. 3) There is mild to moderate aortic regurgitation. 4) The ascending aorta is severely enlarged at 4.8cm. 5) Compared to the Echo done 10/13/2018, no significant change. Procedure: A two-dimensional transthoracic echocardiogram with color flow and Doppler was performed. The study quality was technically adequate. Comparison is made with the echocardiogram of 10/13/2018. The heart rate ranged between 42-52 bpm during the study. The patient had occasional PACs during the exam. Left Ventricle: The left ventricle is normal in size, wall thickness, and systolic function without any focal wall motion abnormalities. The ejection fraction is estimated to be 60-65%. Right Ventricle: The right ventricle is normal in size and function. Atria: The left atrium is moderately dilated. The right atrium is mildly dilated. There is no Doppler evidence for an interatrial shunt. Mitral Valve: The mitral valve is normal in structure and function. There is trace mitral regurgitation. Aortic Valve: The aortic valve is trileaflet. The aortic valve is slightly calcified. The peak aortic velocity is 2.0 m/sec. The peak aortic velocity on the previous exam was 2.3 m/sec. There is no hemodynamically significant valvular aortic stenosis. This is unchanged compared to the previous study. There is mild to moderate aortic regurgitation. Tricuspid Valve: The tricuspid valve is normal in structure and function. There is mild tricuspid regurgitation. The right ventricular systolic pressure is estimated to be at least 22 mmHg based on an estimated right atrial pressure of 3 mm Hg. Pulmonic Valve: The pulmonic valve is not well seen, but is grossly normal. There is trace pulmonic regurgitation. Great Vessels: The aortic root is normal size. The ascending aorta is severely enlarged. The diameter of the ascending aorta has increase from 4.7 cm to 5.0 cm. The aortic arch is severely enlarged. The pulmonary artery is normal size. The IVC is of normal diameter and collapses greater than 50% with a sniff. This suggests a low right atrial pressure of 3 mm Hg. Pericardium/ Pleura There is no pericardial effusion. There is no pleural effusion. MMode/2D Measurements & Calculations LVIDd: 4.4 cm LVOT diam: 2.0 cm LVIDs: 3.2 cm Ao root diam: 3.2 cm FS: 27.7 % asc Aorta Diam: 4.8 cm IVSd: 1.0 cm Ao Arch Diam (Prox Trans): 3.5 cm LVPWd: 0.72 cm LV michele. diameter/BSA (cm/m^2): 2.1 LV sys. diameter/BSA (cm/m^2): 1.5 LA A2 area: 29.8 cm2 RA long axis: 5.5 cm LA A4 area: 27.3 cm2 RA area: 20.2 cm2 LA length (vol): 6.5 cm RA vol: 63.3 ml LA vol: 106.2 ml RA : 29.7 ml/m2 LA vol index: 49.9 ml/m2 RVD1 (basal): 4.8 cm RVD2 (mid): 4.6 cm TAPSE: 2.4 cm Doppler Measurements & Calculations Ao V2 max: 199.5 cm/sec LVOT Max William: 96.8 cm/sec Ao V2 mean: 150.3 cm/sec LV V1 max P.7 mmHg Ao max P.9 mmHg LV V1 VTI: 25.8 cm Ao mean P.8 mmHg SIDNEY(I,D): 1.8 cm2 Ao V2 VTI: 46.7 cm SIDNEY(V,D): 1.6 cm2 sev ratio: 0.55 SIDNEY indexed to BSA (cm^2/m^2): 0.83 AI P1/2t: 859.2 msec AI dec slope: 151.6 cm/sec2 MV E max william: 63.7 cm/sec TR max william: 215.8 cm/sec MV A max william: 87.7 cm/sec TR max P.6 mmHg MV E/A: 0.73 PA V2 max: 98.8 cm/sec Med Peak E' William: 7.4 cm/sec PA V2 mean: 68.3 cm/sec E/E' med: 8.6 PA mean P.0 mmHg Lat Peak E' William: 7.1 cm/sec E/E' lat: 8.9 E/e' average: 8.8 MV dec time: 0.30 sec MV P1/2t: 88.2 msec MV P1/2t max william: 64.4 cm/sec SV(LVOT): 83.0 ml MVA(P1/2t): 2.5 cm2 Reading Physician:03:52 PM
== END ==
PROVIDERS: PCP Physician Assistant; Visit Provider Internal Medicine Cardiovascular Disease
DX: I08.2 Rheumatic disorders of both aortic and tricuspid valves (principal); I77.89 Other specified disorders of arteries and arterioles
CPT/HCPCS: 93306

== ENCOUNTER → 2019-10-12 07:35 | Outpatient (CLI) | payer MEDICARE, OTHER, SELFPAY ==
[2019-10-12 08:28] LABS: Add Manual Diff / Slide Review NO; Basophils Absolute Auto 0 /uL (0-100); Basophils Percent Auto 0.7 % (0-2); Eosinophils Absolute Auto 200 /uL (0-450); Hematocrit 38.8 % (36-46); Hemoglobin 13.9 g/dL (12.0-16.0); Lymphocytes Absolute Auto 1800 /uL (1100-4500); Lymphocytes Percent Auto 32.1 % (25-40); Mean Corpuscular HGB Conc 35.9 % (30-36); Mean Corpuscular Hemoglobin 33.2 PG (26-34); Mean Corpuscular Volume 92.5 fL (80-100); Monocytes Absolute Auto 500 /uL (0-900); Monocytes Percent Auto 8.1 % (3-14); Neutrophils Absolute Auto 3100 /uL (1500-7000); Neutrophils Percent Auto 55.1 % (50-75); Platelet Count 165 X10^3/uL (150-400); Red Cell Distribution Width 13.7 % (11.6-14.8); White Blood Cell Count 5.6 X10^3/uL (4.5-11.0)
[2019-10-12 08:33] LABS: BUN Creatinine Ratio 27.1 (6-22); Blood Urea Nitrogen 19 mg/dL (7-17); Calcium 9.7 mg/dL (8.4-10.2); Carbon Dioxide 24 mmol/L (22-32); Chloride 109 mmol/L (98-107); Cholesterol 209 mg/dL (140-199); Estimated Glomerular Filt Rate > 60.0 mL/min (>60); Glucose 98 mg/dL (80-110); HDL Cholesterol 47 mg/dL (40-60); HEMOLYSIS < 15 (0-50); LDL Cholesterol Calculated 130 mg/dL (<100); Potassium 4.2 mmol/L (3.4-5.1); Sodium 142 mmol/L (137-145); Triglycerides 162 mg/dL (35-150)
== END ==
PROVIDERS: PCP Physician Assistant; Referring Provider Internal Medicine Cardiovascular Disease; Visit Provider Internal Medicine Cardiovascular Disease
DX: E78.5 Hyperlipidemia, unspecified (principal); I10 Essential (primary) hypertension
CPT/HCPCS: 36415; 80048; 80061; 85025

== ENCOUNTER → 2020-04-08 15:52 | Outpatient (CLI) | payer MEDICARE, OTHER, SELFPAY ==
--- NOTE | 2020-04-08 | DI.MG.S_ITS ---
BILATERAL DIGITAL SCREENING MAMMOGRAM 3D/2D WITH CAD: 04/08/2020 CLINICAL: Routine screening. Family history of breast cancer. Comparison is made to exams dated: 03/01/2019 mammogram, 11/23/2017 mammogram, 11/22/2016 mammogram, and 12/04/2015 [facility]. There are scattered fibroglandular elements in both breasts. Current study was also evaluated with a Computer Aided Detection (CAD) system. There is a benign mass in the right breast. There also are benign post operative findings in the left breast. No significant masses, calcifications, or other findings are seen in either breast. There has been no significant interval change. IMPRESSION: BENIGN There is no mammographic evidence of malignancy. A 1 year screening mammogram is recommended. This exam was interpreted at Station ID: [id number]. NOTE: For mammograms, a report in lay terms will be sent to the patient. Approximately 15% of breast malignancies will not be visualized mammographically. In the management of a palpable breast mass, a negative mammogram must not discourage biopsy of a clinically suspicious lesion. Electronically Signed By: Navarro nathan/tiffanie:04/08/2020 16:52:45 letter sent: Normal Exam ACR BI-RADS Category 2: Benign Finding(s) 3342F
== END ==
PROVIDERS: PCP Physician Assistant; Referring Provider Physician Assistant; Visit Provider Physician Assistant
DX: Z12.31 Encounter for screening mammogram for malignant neoplasm of breast (principal); Z80.3 Family history of malignant neoplasm of breast
CPT/HCPCS: 77063; 77067

== ENCOUNTER → 2020-07-10 08:04 | Outpatient (CLI) | payer MEDICARE, OTHER, SELFPAY ==
[2020-07-10 10:38] LABS: Clostridium Difficile Tox PCR Negative for C. diff
== END ==
PROVIDERS: PCP Internal Medicine; Referring Provider Internal Medicine; Visit Provider Internal Medicine
DX: R19.7 Diarrhea, unspecified (principal)
CPT/HCPCS: 87493

== ENCOUNTER 2020-07-26 22:59 | Emergency (ER) | payer MEDICARE, OTHER, SELFPAY ==
--- NOTE | 2020-07-26 23:03 | ED.UPPEXIN ---
HPI - Extremity Injury (Upper) General Chief Complaint: Extremity Injury, Upper Stated Complaint: right forearm injury Time Seen by Provider: 07/26/20 23:00 Source: patient and family Mode of arrival: Ambulatory Limitations: no limitations History of Present Illness HPI narrative: 74F non smoker with history of HTN and asthma presents with wrist pain after a fall tonight. She was walking backwards in a new pair of shoes with sticky soles and fell backwards onto her wrist. She now has pain at her wrist and base of thumb with mild swelling. She has pain with range of motion and improvement with rest. She denies any numbness, tingling or weakness. She states the fall was purely because she got her feet caught up and denies any prodromal or provoking symptoms such as chest pain or shortness of breath. She denies any head neck or back pain. She is otherwise well and free of complaint. She comes in wearing her own Velcro wrist splint complaint: injury to: right Onset (ago): hour(s) Other Extremity Injury: Right: wrist Other injuries: none Handedness: right Place: home Severity: moderate Relieving factors: immobilization Exacerbating factors: movement of extremity Context: fall and direct blow Associated symptoms: denies other symptoms Treatments prior to arrival: splint Related Data Home Medications Medication Instructions Recorded Confirmed amlodipine 10 mg tablet 10 mg PO DAILY 01/08/19 04/12/19 atorvastatin 10 mg tablet 10 mg PO DAILY 01/08/19 04/12/19 benazepril 40 mg tablet 40 mg PO DAILY 01/08/19 04/12/19 Previous Rx's Medication Instructions Recorded albuterol sulfate 90 mcg/actuation 2 puff INHALATION Q4-6H PRN #18 04/30/20 aerosol inhaler gram fluticasone propionate 50 1 spray INTRANASAL BID PRN #1 bot 04/30/20 mcg/actuation nasal spray,suspension Allergies Allergy/AdvReac Type Severity Reaction Status Date / Time Penicillins [PENICILLINS] Allergy Severe ANAPHYLAXIS Verified 04/30/20 14:09 Review of Systems Constitutional Constitutional: Denies chills, Denies fatigue, Denies fever(s), Denies frequent falls, Denies lethargy and Denies weakness Eyes Eyes: Denies change in vision, Denies eye discharge, Denies irritation and Denies loss of vision ENT Ears, Nose, Mouth, and Throat: Denies change in voice, Denies dizziness, Denies neck pain, Denies sore throat and Denies throat swelling Cardiovascular Cardiovascular: Denies chest pain, Denies irregular heart rhythm, Denies lightheadedness, Denies palpitations, Denies dyspnea, Denies dyspnea on exertion and Denies orthopnea Respiratory Respiratory: Denies cough, Denies dyspnea, Denies dyspnea on exertion and Denies wheezing Gastrointestinal Gastrointestinal: Denies abdominal pain, Denies change in bowel habits, Denies diarrhea, Denies nausea and Denies vomiting Musculoskeletal Musculoskeletal: Reports arthralgias, Reports joint swelling, Denies neck pain and Denies numbness Integumentary/Breasts Skin/Breast: Denies pruritus, Denies erythema, Denies rash and Denies wounds Neurologic Neurologic: Denies behavioral changes, Denies confusion, Denies dizziness, Denies frequent falls, Denies loss of vision, Denies numbness and Denies weakness Psychiatric Psychiatric: Denies anxiety, Denies behavioral changes, Denies confusion, Denies depression, Denies homicidal ideation and Denies suicidal ideation Endocrine Endocrine: Denies fatigue, Denies flushing and Denies palpitations Hematologic/Lymphatic Hematologic/Lymphatic: Denies easy bruising Allergic/Immunologic Allergic/Immunologic: Denies urticaria, Denies throat swelling and Denies wheezing Patient History Medical History Acute sinusitis Allergic rhinitis (11/01/14) Chest pain Dyspnea Fatigue Hyperlipidemia Surgical History Status post hysterectomy Family History Father Congestive heart failure Hypertrophic cardiomegaly Brother Congestive heart failure Hypertrophic cardiomyopathy Sister Congestive heart failure Hypertrophic cardiomyopathy Sister Heart disease Pacemaker Social History Smoking Status: Never smoker second hand exposure: No alcohol intake: current substance use type: does not use Smoking Status: Never smoker Substance Use Type: does not use Exam Narrative Exam Narrative: GEN: AOx3 and in mild distress EYES: Pupils are equal, round, and reactive to light and accommodation. Extraoccular muscles are intact bilaterally. There is no subconjunctival hemorrhage or exudate. CHEST: Lungs are clear to auscultation bilaterally and free of wheezes, rales, or rhonchi. Heart rate is regular rhythm, there are no murmurs, clicks, rubs, or gallops. There is no chest wall tenderness. ABD: Abdomen is soft and nontender. There is no guarding or rebound. Bowel sounds are normal in all 4 quadrants. There is no mass or organomegaly. EXT: Full but painful range of motion of right wrist with swelling over the distal radius. Patient does have increased pain with axial loading of the right and palpation in the anatomic snuffbox raising the suspicion of an underlying scaphoid injury. This is closed, isolated neurovascularly intact. No tenderness proximal forearm, elbow, humerus or other. SKIN: Warm, pink, and dry. No erythema or rash Initial Vital Signs Initial Vital Signs: Vital Signs Temperature 97.3 F L 07/26/20 23:07 Pulse Rate 65 07/26/20 23:07 Respiratory Rate 16 07/26/20 23:07 Blood Pressure 196/82 H 07/26/20 23:07 Pulse Oximetry 99 07/26/20 23:07 Procedures Orthopedic Splinting/Casting Injury #1: Side: right Upper Extremity Injury Location: wrist Upper Extremity Immobilizer: thumb spica Post splinting neuro exam: intact Post splinting vascular exam: intact Placed by: Nursing Course Orders Ordered: ED Orders 07/26/20 23:07 XR wrist RT min 3V Stat Discontinued Medications Hydrocodone Bitart/Acetaminophen (Hydrocodone/Acet 5/325 Prepack) 1 bottle MISC SEEINSTR ONE Stop: 07/26/20 23:46 Last Admin: 07/26/20 23:51 Dose: 1 bottle Documented by: MILLI Vital Signs Vital signs: Vital Signs - 8 hr 07/26/20 23:07 07/26/20 23:59 Temperature 97.3 F L Pulse Rate 65 56 L Respiratory Rate 16 16 Blood Pressure 196/82 H 145/63 H Pulse Oximetry 99 99 MDM - Extremity Injury (Upper) Imaging Data Extremity x-ray #1: Radiologist's Impression: No fracture or dislocation MDM Narrative Medical decision making narrative: Fall with wrist pain and swelling. No fx on xray, but exam and mechanism raise suspicion of scaphoid injury. I related the importance of close follow-up with this patient the need to were splint until follow-up. She understands that frequently a scaphoid fracture is not picked up on initial imaging and repeat is needed in about a week. She understands the need for splint and follow-up as well as return precautions. Her questions have been answered to her apparent satisfaction. Discharge Plan Departure Patient Disposition: Home Clinical Impression: Sprain of wrist, right Qualifiers: Encounter type: initial encounter Qualified Code(s): S63.501A - Unspecified sprain of right wrist, initial encounter Instructions: DI for Wrist Sprain Activity Restrictions/Additional Instructions: *You have been diagnosed with [fall with significant wrist pain and swelling. x-ray is reassuring and no fracture or dislocation is noted by myself or radiology] *What to do: *Take medications as directed: Tylenol or Motrin for pain and swelling *Follow up with your primary care provider in 5-7 days, call for an appointment. Let them know you were seen in the Emergency Department and that we ask that you be seen in follow up. The location of your injury raises suspicion for close evaluation of a bone in her wrist called the scaphoid bone which can be injured, but not show up on an x-ray for about 1 week. If you have ongoing pain in 5-7 days it would be reasonable to repeat an x-ray to re-evaluate. The splint that we have given you is designed to treat the injury that I am referring to *Return to ER if you should have any new, worsening or concerning symptoms, such as [increasing pain, swelling, numbness, tingling or other bothersome symptoms] Prescriptions: No Action benazepril 40 mg tablet 40 mg PO DAILY RF: 0 amlodipine 10 mg tablet 10 mg PO DAILY RF: 0 atorvastatin 10 mg tablet 10 mg PO DAILY RF: 0 albuterol sulfate 90 mcg/actuation HFA aerosol inhaler 2 puff INHALATION Q4-6H PRN (Reason: shortness of breath or wheezing) Qty: 18 RF: 2 fluticasone propionate [Flonase Allergy Relief] 50 mcg/actuation spray,suspension 1 spray Intranasal BID PRN (Reason: allergy symptoms) Qty: 1 RF: 1 Referrals: Camilla Mosley MD [Primary Care Provider] -
[2020-07-26 23:07] VITALS: BP 196/82; PULSE 65; RESP 16; TEMP 36.3; O2SAT 99; BMI 28.7
--- NOTE | 2020-07-26 23:07 | DI.RAD.S_ITS ---
PROCEDURE: XR WRIST RT MIN 3V INDICATIONS: fall with wrist/navicular pain TECHNIQUE: 4 views of the wrist were acquired. COMPARISON: None. FINDINGS: Bones: No fractures or dislocations. No suspicious bony lesions. Age-appropriate bony degenerative changes are seen. Scaphoid view: No navicular fractures are seen. Soft tissues: No suspicious soft tissue calcifications. IMPRESSION: No displaced fractures are seen. If there is snuffbox tenderness (or other clinical suspicion for a fracture not seen on these images) then a repeat examination would be recommended in 10 to 14 days, following splinting. Note: No significant discrepancy from the preliminary report. Dictated by: Nando Dow M.D. on 07/27/2020 at 7:34 Approved by: Nando Dow M.D. on 07/27/2020 at 7:34
[2020-07-26] MEDS: HYDROCODONE/ACET 5/325 PREPACK 1 BOTTLE MISC (23:51)
[2020-07-26 23:59] VITALS: BP 145/63; PULSE 56; RESP 16; O2SAT 99
== END 2020-07-27 00:01 | disposition home or self-care (01) ==
PROVIDERS: Emergency Provider Emergency Medicine; PCP Internal Medicine
DX: S63.501A Unspecified sprain of right wrist, initial encounter (principal); W19.XXXA Unspecified fall, initial encounter
CPT/HCPCS: 73110; 99283

== ENCOUNTER → 2020-12-03 07:27 | Outpatient (CLI) | payer MEDICARE, OTHER, SELFPAY ==
[2020-12-03 08:15] LABS: Add Manual Diff / Slide Review NO; Basophils Absolute Auto 0 /uL (0-100); Basophils Percent Auto 0.5 % (0-2); Eosinophils Absolute Auto 100 /uL (0-450); Eosinophils Percent Auto 1.3 % (2-4); Hematocrit 36.7 % (36-46); Hemoglobin 12.8 g/dL (12.0-16.0); Lymphocytes Absolute Auto 1600 /uL (1100-4500); Lymphocytes Percent Auto 24.4 % (25-40); Mean Corpuscular HGB Conc 34.8 % (30-36); Mean Corpuscular Hemoglobin 32.4 PG (26-34); Mean Corpuscular Volume 93.1 fL (80-100); Monocytes Absolute Auto 500 /uL (0-900); Monocytes Percent Auto 7.7 % (3-14); Neutrophils Absolute Auto 4200 /uL (1500-7000); Neutrophils Percent Auto 66.1 % (50-75); Platelet Count 168 X10^3/uL (150-400); Red Blood Cell Count 3.95 X10^6/uL (4.0-5.2); Red Cell Distribution Width 13.6 % (11.6-14.8); White Blood Cell Count 6.4 X10^3/uL (4.5-11.0)
[2020-12-03 08:21] LABS: BUN Creatinine Ratio 28.9 (6-22); Blood Urea Nitrogen 22 mg/dL (7-17); Carbon Dioxide 26 mmol/L (22-32); Chloride 110 mmol/L (98-107); Cholesterol 156 mg/dL (140-199); Estimated Glomerular Filt Rate > 60.0 mL/min (>60); Glucose 93 mg/dL (80-110); HDL Cholesterol 65 mg/dL (40-60); HEMOLYSIS < 15 (0-50); LDL Cholesterol Calculated 76 mg/dL (<100); Potassium 3.9 mmol/L (3.4-5.1); Sodium 140 mmol/L (137-145); Triglycerides 73 mg/dL (35-150)
== END ==
PROVIDERS: PCP Internal Medicine; Referring Provider Internal Medicine Cardiovascular Disease; Visit Provider Internal Medicine Cardiovascular Disease
DX: E78.5 Hyperlipidemia, unspecified (principal); I10 Essential (primary) hypertension
CPT/HCPCS: 36415; 80048; 80061; 85025

== ENCOUNTER → 2020-12-04 14:34 | Outpatient (CLI) | payer MEDICARE, OTHER, SELFPAY ==
--- NOTE | 2020-12-04 14:35 | DI.ECHO.S_ITS ---
[facility]---------+ [facility] +---------+ : : [address] : [place] [address] : : : : [id number] : : : : Phone: [phone]+ Echocardiogram Report + + :Name: ASIF FONTANEZ Study Date: 12/04/2020 Height: 70 in : :[facility] ReadingLocation: Weight: 206 lb : : Gender: Female BSA: 2.1 m2 : :: 1945 Age: 75 yrs BP: 138/76 mmHg: :Reason For Study: OTHER SPECIFIED DISORDERS OF ARTERIES AND : :ARTERIOLS : :Ordering Physician: ERIK, : :LYDIA Performed By: Ayala Cardozo : :Referring: LYDIA MINA : + + Interpretation Summary 1) Normal left ventricular size, wall motion, and systolic function (EF 60- 65%). 2) Normal right ventricular size and function. 3) There is mild to moderate aortic regurgitation. 4) The ascending aorta is severely enlarged at 4.9cm. 5) Compared to the Echo done 10.05.2019, no significant change. Procedure: A two-dimensional transthoracic echocardiogram with color flow and Doppler was performed. The study quality was technically adequate. Comparison is made with the echocardiogram of 10/05/2019. The patient was in sinus rhythm with heart rates between 57-73 bpm during the exam. Left Ventricle: The left ventricle is normal in size. Left ventricular wall thickness is borderline increased. The ejection fraction is estimated to be 60-65%. Diastolic parameters suggest probable normal left ventricular diastolic function and normal filling pressures. Right Ventricle: The right ventricle is normal in size and function. Atria: The left atrium is mildly dilated. Right atrial size is normal. There is no Doppler evidence for an interatrial shunt. Mitral Valve: The mitral valve is normal in structure and function. There is no mitral regurgitation noted. Aortic Valve: The aortic valve is slightly calcified. The aortic valve is trileaflet. There is no aortic valve stenosis. The peak aortic velocity is 1.96 m/sec. There is mild to moderate aortic regurgitation. Tricuspid Valve: The tricuspid valve is normal in structure and function. There is mild tricuspid regurgitation. The right ventricular systolic pressure is estimated to be at least 29 mmHg based on an estimated right atrial pressure of 3 mm Hg. Pulmonic Valve: The pulmonic valve leaflets are thin and pliable; valve motion is normal. There is no pulmonic valvular regurgitation. Great Vessels: The aortic root is normal size. The ascending aorta is severely enlarged. The IVC is of normal diameter and collapses greater than 50% with a sniff. This suggests a low right atrial pressure of 3 mm Hg. Pericardium/ Pleura There is no pericardial effusion. There is no pleural effusion. MMode/2D Measurements & Calculations LVIDd: 4.4 cm LVOT diam: 2.0 cm LVIDs: 3.0 cm Ao root diam: 2.8 cm FS: 32.6 % asc Aorta Diam: 4.9 cm EPSS: 0.41 cm Ao Arch Diam (Prox Trans): 4.4 cm IVSd: 1.1 cm LVPWd: 1.0 cm LV michele. diameter/BSA (cm/m^2): 2.1 LV sys. diameter/BSA (cm/m^2): 1.4 LA A2 area: 22.8 cm2 RA long axis: 4.9 cm LA A4 area: 19.8 cm2 RA area: 14.7 cm2 LA length (vol): 5.2 cm RA vol: 37.5 ml LA vol: 72.9 ml RA : 17.7 ml/m2 LA vol index: 34.5 ml/m2 IVC diam: 0.84 cm RVD1 (basal): 3.4 cm TAPSE: 1.8 cm Doppler Measurements & Calculations Ao V2 max: 196.4 cm/sec LVOT Max William: 124.1 cm/sec Ao V2 mean: 125.2 cm/sec LV V1 max P.2 mmHg Ao max P.4 mmHg LV V1 VTI: 26.2 cm Ao mean P.5 mmHg SIDNEY(I,D): 2.0 cm2 Ao V2 VTI: 40.0 cm SIDNEY(V,D): 1.9 cm2 sev ratio: 0.65 SIDNEY indexed to BSA (cm^2/m^2): 0.93 AI P1/2t: 628.8 msec AI dec slope: 194.6 cm/sec2 MV E max william: 47.7 cm/sec TR max william: 255.6 cm/sec MV A max william: 108.9 cm/sec TR max P.1 mmHg MV E/A: 0.44 PA V2 max: 145.1 cm/sec Med Peak E' William: 7.2 cm/sec PA V2 mean: 86.0 cm/sec E/E' med: 6.6 PA mean P.7 mmHg Lat Peak E' William: 8.3 cm/sec PA pr(Accel): 36.2 mmHg E/E' lat: 5.7 E/e' average: 6.2 MV dec time: 0.26 sec SV(LVOT): 78.5 ml Reading Physician:05:03 PM
== END ==
PROVIDERS: PCP Internal Medicine; Referring Provider Internal Medicine Cardiovascular Disease; Visit Provider Internal Medicine Cardiovascular Disease
DX: I77.89 Other specified disorders of arteries and arterioles (principal); I35.1 Nonrheumatic aortic (valve) insufficiency; I51.7 Cardiomegaly
CPT/HCPCS: 93306

== ENCOUNTER → 2021-07-01 16:50 | Outpatient (CLI) | payer MEDICARE, OTHER, SELFPAY ==
--- NOTE | 2021-07-01 | DI.MG.S_ITS ---
BILATERAL DIGITAL SCREENING MAMMOGRAM 3D/2D WITH CAD: 07/01/2021 CLINICAL: Routine screening. Family history of breast cancer. Comparison is made to exams dated: 04/08/2020 mammogram, 03/01/2019 mammogram, 11/23/2017 mammogram, 11/22/2016 mammogram, 06/07/2016 mammogram, and 10/26/2012 mammogram - [facility]. There are scattered fibroglandular elements in both breasts. Current study was also evaluated with a Computer Aided Detection (CAD) system. There are benign post operative findings in the left breast. No significant masses, calcifications, or other findings are seen in either breast. There has been no significant interval change. IMPRESSION: BENIGN There is no mammographic evidence of malignancy. A 1 year screening mammogram is recommended. This exam was interpreted at Station ID: [id number]. NOTE: For mammograms, a report in lay terms will be sent to the patient. Approximately 15% of breast malignancies will not be visualized mammographically. In the management of a palpable breast mass, a negative mammogram must not discourage biopsy of a clinically suspicious lesion. Electronically Signed By: Navarro nathan/tiffanie:07/02/2021 08:34:43 letter sent: Normal Exam ACR BI-RADS Category 2: Benign Finding(s) 3342F
== END ==
PROVIDERS: PCP Internal Medicine; Referring Provider Internal Medicine; Visit Provider Internal Medicine
DX: Z12.31 Encounter for screening mammogram for malignant neoplasm of breast (principal); Z80.3 Family history of malignant neoplasm of breast
CPT/HCPCS: 77063; 77067

== ENCOUNTER → 2021-12-04 09:58 | Outpatient (CLI) | payer MEDICARE, OTHER, SELFPAY ==
[2021-12-04 11:51] LABS: Add Manual Diff / Slide Review NO; Basophils Absolute Auto 0 /uL (0-100); Basophils Percent Auto 0.8 % (0-2); Eosinophils Absolute Auto 100 /uL (0-450); Eosinophils Percent Auto 2.7 % (2-4); Hematocrit 37.2 % (36-46); Hemoglobin 12.9 g/dL (12.0-16.0); Lymphocytes Absolute Auto 1300 /uL (1100-4500); Lymphocytes Percent Auto 24.9 % (25-40); Mean Corpuscular HGB Conc 34.5 % (30-36); Mean Corpuscular Hemoglobin 31.6 PG (26-34); Mean Corpuscular Volume 91.4 fL (80-100); Monocytes Absolute Auto 400 /uL (0-900); Monocytes Percent Auto 8.5 % (3-14); Neutrophils Absolute Auto 3300 /uL (1500-7000); Neutrophils Percent Auto 63.1 % (50-75); Platelet Count 166 X10^3/uL (150-400); Red Blood Cell Count 4.07 X10^6/uL (4.0-5.2); Red Cell Distribution Width 13.1 % (11.6-14.8); White Blood Cell Count 5.2 X10^3/uL (4.5-11.0)
[2021-12-04 12:10] LABS: BUN Creatinine Ratio 27.4 (6-22); Blood Urea Nitrogen 20 mg/dL (7-17); Calcium 9.7 mg/dL (8.4-10.2); Carbon Dioxide 24 mmol/L (22-32); Chloride 109 mmol/L (98-107); Cholesterol 148 mg/dL (140-199); Estimated Glomerular Filt Rate > 60.0 mL/min (>60); Glucose 93 mg/dL (80-110); HDL Cholesterol 54 mg/dL (40-60); HEMOLYSIS < 15 (0-50); LDL Cholesterol Calculated 72 mg/dL (<100); Potassium 4.2 mmol/L (3.4-5.1); Sodium 142 mmol/L (137-145); Triglycerides 110 mg/dL (35-150)
== END ==
PROVIDERS: PCP Internal Medicine; Referring Provider Internal Medicine Cardiovascular Disease; Visit Provider Internal Medicine Cardiovascular Disease
DX: E78.5 Hyperlipidemia, unspecified (principal); I10 Essential (primary) hypertension
CPT/HCPCS: 36415; 80048; 80061; 85025

== ENCOUNTER → 2021-12-08 08:41 | Outpatient (CLI) | payer MEDICARE, OTHER, SELFPAY ==
--- NOTE | 2021-12-08 | DI.ECHO.S_ITS ---
[facility]---------+ [facility] +---------+ : : [address] : : : : [place] [address] : : : : [id number] : : : : Phone: [phone]+ Echocardiogram Report + + :Name: ASIF FONTANEZ Study Date: 12/08/2021 Height: 70 in : :[facility] ReadingLocation: Weight: 206 lb : : Gender: Female BSA: 2.1 m2 : :: 1945 Age: 76 yrs BP: 152/100 mmHg: :Reason For Study: AORTIC INSUFFICIENCY : :Ordering Physician: ERIK, : :LYDIA Performed By: Ayala Cardozo : :Referring: LYDIA MINA : + + Interpretation Summary 1) Normal left ventricular size, wall motion, and systolic function (EF 60- 65%). 2) Normal right ventricular size and function. 3) There is mild to moderate aortic regurgitation. 4) The ascending aorta is severely enlarged at 4.9cm. 5) Compared to the Echo done 12/04/2020, no significant change. Procedure: A two-dimensional transthoracic echocardiogram with color flow and Doppler was performed. The study quality was technically adequate. Comparison is made with the echocardiogram of 12/04/2020. The patient was in sinus bradycardia with heart rates between 52-65 bpm during the exam. Left Ventricle: The left ventricle is normal in size and wall thickness. The ejection fraction is estimated to be 60-65%. Left ventricular systolic function appears normal without focal wall motion abnormalities. Right Ventricle: The right ventricle grossly appears normal in size with probable normal systolic function. Atria: The left atrium is moderately dilated. Right atrial size is normal. There is no Doppler evidence for an interatrial shunt. Mitral Valve: There is mild mitral annular calcification. The mitral valve leaflets appear mildly thickened, but open well. There is mild mitral regurgitation. Aortic Valve: The aortic valve is trileaflet. The aortic valve opens well. There is no aortic valve stenosis. There is mild to moderate aortic regurgitation. Tricuspid Valve: The tricuspid valve is normal in structure and function. There is mild to moderate tricuspid regurgitation. The right ventricular systolic pressure is estimated to be at least 29 mmHg based on an estimated right atrial pressure of 3 mm Hg. Pulmonic Valve: The pulmonic valve leaflets are thin and pliable; valve motion is normal. There is trace pulmonic regurgitation. Great Vessels: The aortic root is normal size. The ascending aorta is severely enlarged. The aortic arch is severely enlarged. The IVC is of normal diameter and collapses greater than 50% with a sniff. This suggests a low right atrial pressure of 3 mm Hg. Pericardium/ Pleura There is no pericardial effusion. There is no pleural effusion. MMode/2D Measurements & Calculations LVIDd: 5.1 cm LVOT diam: 2.0 cm LVIDs: 3.3 cm Ao root diam: 3.1 cm FS: 36.5 % asc Aorta Diam: 4.9 cm IVSd: 0.80 cm Ao Arch Diam (Prox Trans): 4.7 cm LVPWd: 0.68 cm LV michele. diameter/BSA (cm/m^2): 2.4 LV sys. diameter/BSA (cm/m^2): 1.5 LA A2 area: 24.9 cm2 RA long axis: 5.8 cm LA A4 area: 29.6 cm2 RA area: 21.6 cm2 LA length (vol): 6.3 cm RA vol: 69.1 ml LA vol: 98.8 ml RA : 32.7 ml/m2 LA vol index: 46.7 ml/m2 IVC diam: 1.1 cm RVD1 (basal): 3.7 cm RVD2 (mid): 3.8 cm Doppler Measurements & Calculations Ao V2 max: 235.4 cm/sec LVOT Max William: 134.3 cm/sec Ao V2 mean: 158.1 cm/sec LV V1 max P.2 mmHg Ao max P.2 mmHg LV V1 VTI: 29.5 cm Ao mean P.5 mmHg SIDNEY(I,D): 1.9 cm2 Ao V2 VTI: 51.5 cm SIDNEY(V,D): 1.9 cm2 sev ratio: 0.57 SIDNEY indexed to BSA (cm^2/m^2): 0.88 AI P1/2t: 574.9 msec AI dec slope: 230.2 cm/sec2 MV E max william: 78.6 cm/sec TR max william: 253.6 cm/sec MV A max william: 100.6 cm/sec TR max P.7 mmHg MV E/A: 0.78 PA V2 max: 118.4 cm/sec Med Peak E' William: 6.1 cm/sec PA V2 mean: 78.6 cm/sec E/E' med: 12.9 PA mean P.9 mmHg Lat Peak E' William: 8.1 cm/sec PA pr(Accel): 48.2 mmHg E/E' lat: 9.8 E/e' average: 11.3 MV dec time: 0.21 sec SV(OT): 95.8 ml Reading Physician:02:00 PM
== END ==
PROVIDERS: PCP Internal Medicine; Referring Provider Internal Medicine Cardiovascular Disease; Visit Provider Internal Medicine Cardiovascular Disease
DX: I08.3 Combined rheumatic disorders of mitral, aortic and tricuspid valves (principal); I77.89 Other specified disorders of arteries and arterioles
CPT/HCPCS: 93306

== ENCOUNTER → 2022-06-21 12:33 | Outpatient (CLI) | payer MEDICARE, OTHER, SELFPAY ==
--- NOTE | 2022-06-21 | DI.RAD.S_ITS ---
PROCEDURE: XR KNEE RT 3V INDICATIONS: Pain in right knee TECHNIQUE: 3 views of the knee were acquired. COMPARISON: None. FINDINGS: Bones: No acute fractures or dislocations. No suspicious bony lesions. There is mild narrowing of the medial femorotibial compartment joint space. At least moderate narrowing of the patellofemoral joint space is seen with mild subchondral sclerosis and small marginal osteophytes. Soft tissues: Small joint effusion. No suspicious soft tissue calcifications. Prepatellar subcutaneous soft tissue edema is present. IMPRESSION: 1. Moderate patellofemoral compartment osteoarthrosis. 2. Nonspecific prepatellar subcutaneous soft tissue edema or bursal effusion. 3. Small joint effusion. Dictated by: Jose A Morse M.D. on 06/21/2022 at 20:16 Approved by: Jose A Morse M.D. on 06/21/2022 at 20:18
== END ==
PROVIDERS: PCP Internal Medicine; Referring Provider Internal Medicine; Visit Provider Internal Medicine
DX: M17.11 Unilateral primary osteoarthritis, right knee (principal); M25.561 Pain in right knee; M25.461 Effusion, right knee
CPT/HCPCS: 73562

== ENCOUNTER → 2023-03-18 13:38 | Outpatient (CLI) | payer MEDICARE, OTHER, SELFPAY ==
--- NOTE | 2023-03-18 13:40 | DI.ECHO.S_ITS ---
[facility] +---------+ : : [address] : [address] : : : : [id number] : : : : Phone: [phone]+ Echocardiogram Report + + :Name: ASIF FONTANEZ Study Date: 03/18/2023 Height: 69 in : :[facility] ReadingLocation: Weight: 193 lb : : Gender: Female BSA: 2.0 m2 : :: 1945 Age: 77 yrs BP: 166/88 mmHg: :Reason For Study: Enlarged Aorta : :Ordering Physician: ERIK, : :LYDIA Performed By: Fiona Cristina : :Referring: LYDIA MINA : + + Interpretation Summary 1) Normal left ventricular size, wall motion, and systolic function (EF 60- 65%). 2) Normal right ventricular size and function. 3) There is mild aortic stenosis (valve area 2.0cm2, mean gradient 10mmHg, severity ratio 0.58). 4) There is mild aortic regurgitation. 5) The ascending aorta is severely enlarged at 4.8cm. 6) Compared to the Echo done 12/08/2021, mild aortic stenosis is present on this study. Procedure: A two-dimensional transthoracic echocardiogram with color flow and Doppler was performed. The study quality was technically adequate. Comparison is made with the echocardiogram of 12/08/2021. The patient was in normal sinus rhythm during the exam. Left Ventricle: The left ventricle is normal in size. There is mild concentric left ventricular hypertrophy. The ejection fraction is estimated to be 60-65%. Left ventricular systolic function appears normal without focal wall motion abnormalities. Diastolic parameters suggest a relaxation abnormality of the left ventricle, consistent with probable normal filling pressures. Right Ventricle: The right ventricle is normal size. The right ventricular systolic function is normal. Atria: The left atrial size is normal. Right atrial size is normal. There is no Doppler evidence for an interatrial shunt. Mitral Valve: The mitral valve leaflets appear mildly thickened, but open well. There is no mitral valve stenosis. There is mild mitral regurgitation. Aortic Valve: The aortic valve is trileaflet. The aortic valve opens well. There is mild aortic valve sclerosis. The peak aortic velocity is 2.28 m/sec. The aortic valve mean gradient is 10 mmHg. There is mild aortic stenosis. There is mild aortic regurgitation. Tricuspid Valve: The tricuspid valve is normal. There is no tricuspid stenosis. There is mild tricuspid regurgitation. The right ventricular systolic pressure is estimated to be at least 25 mmHg based on an estimated right atrial pressure of 3 mm Hg. Pulmonic Valve: The pulmonic valve leaflets are thin and pliable; valve motion is normal. There is no pulmonic valvular stenosis. There is trace pulmonic regurgitation. Great Vessels: The aortic root is normal size. The ascending aorta is moderately enlarged. The aortic arch is moderately enlarged. The pulmonary artery is normal size. The IVC is of normal diameter and collapses greater than 50% with a sniff. This suggests a low right atrial pressure of 3 mm Hg. Pericardium/ Pleura There is no pericardial effusion. MMode/2D Measurements & Calculations LVIDd: 4.4 cm LVOT diam: 2.0 cm LVIDs: 3.4 cm Ao root diam: 2.8 cm FS: 22.7 % asc Aorta Diam: 4.8 cm EPSS: 0.50 cm IVSd: 1.2 cm LVPWd: 1.3 cm LV michele. diameter/BSA (cm/m^2): 2.2 LV sys. diameter/BSA (cm/m^2): 1.7 LA A2 area: 18.7 cm2 RA long axis: 5.2 cm LA A4 area: 19.6 cm2 RA area: 12.9 cm2 LA length (vol): 6.1 cm RA vol: 27.4 ml LA vol: 51.0 ml RA : 13.5 ml/m2 LA vol index: 25.1 ml/m2 RVD1 (basal): 3.4 cm LVLs ap4: 6.1 cm LVLd ap2: 7.5 cm TAPSE_phl: 2.5 cm LVLs ap2: 6.1 cm Doppler Measurements & Calculations Ao V2 max: 228.0 cm/sec LVOT Max William: 145.0 cm/sec Ao V2 mean: 149.0 cm/sec LV V1 max P.4 mmHg Ao max P.0 mmHg LV V1 VTI: 30.9 cm Ao mean P.0 mmHg SIDNEY(I,D): 1.8 cm2 Ao V2 VTI: 53.1 cm SIDNEY(V,D): 2.0 cm2 sev ratio: 0.58 SIDNEY indexed to BSA (cm^2/m^2): 0.90 AI P1/2t: 587.1 msec AI dec slope: 216.0 cm/sec2 MV E max william: 77.1 cm/sec TR max william: 234.0 cm/sec MV A max wliliam: 100.0 cm/sec TR max P.0 mmHg MV E/A: 0.77 PA V2 max: 121.0 cm/sec Med Peak E' William: 3.7 cm/sec PA V2 mean: 80.0 cm/sec E/E' med: 21.0 PA mean P.0 mmHg Lat Peak E' William: 5.8 cm/sec PA pr(Accel): 34.9 mmHg E/E' lat: 13.3 E/e' average: 17.2 MV dec time: 0.39 sec SV(LVOT): 97.1 ml AV P1/2t-pr_phl: 587.0 msec AV VR_phl: 0.64 SIDNEY(VTI)/BSA_phl: 0.90 MV P1/2t-pr_phl: 113.0 msec Reading Physician:05:24 PM
== END ==
PROVIDERS: PCP Internal Medicine; Referring Provider Internal Medicine Cardiovascular Disease; Visit Provider Internal Medicine Cardiovascular Disease
DX: I08.3 Combined rheumatic disorders of mitral, aortic and tricuspid valves (principal); I77.89 Other specified disorders of arteries and arterioles
CPT/HCPCS: 93306

== ENCOUNTER 2023-08-25 22:15 | Emergency (ER) | payer MEDICARE, OTHER, SELFPAY ==
[2023-08-25 22:27] VITALS: BP 137/93; PULSE 115; RESP 28; TEMP 36.4; O2SAT 98; BMI 27.2
[2023-08-25 22:35] VITALS: BP 127/88; PULSE 71; O2SAT 95; BMI 27.2
[2023-08-25] MEDS: ONDANSETRON 4 MG/2 ML INJ IV (22:59)
[2023-08-25 23:00] VITALS: PULSE 96; O2SAT 95
[2023-08-25 23:10] LABS: Alanine Aminotransferase 53 IU/L (<35); Albumin 4.1 g/dL (3.5-5.0); Albumin Globulin Ratio 1.4 (1.0-2.8); Alkaline Phosphatase 55 U/L (38-126); Aspartate Aminotransferase 45 IU/L (14-36); BUN Creatinine Ratio 24.5 (6-22); Bilirubin Total 0.8 mg/dL (0.2-1.3); Blood Urea Nitrogen 23 mg/dL (7-17); Calcium 10.2 mg/dL (8.4-10.2); Carbon Dioxide 22 mmol/L (22-32); Chloride 105 mmol/L (98-107); Estimated Glomerular Filt Rate > 60 mL/min (>60); Glucose 100 mg/dL (80-110); Lipase 111 U/L (23-300); Potassium 4.1 mmol/L (3.4-5.1); Sodium 138 mmol/L (137-145); Total Protein 7.1 g/dL (6.3-8.2)
[2023-08-25 23:11] LABS: HEMOLYSIS 71 (0-50)
[2023-08-25 23:20] LABS: Lactate (Lactic Acid) 0.8 mmol/L (0.7-2.1)
[2023-08-25 23:23] LABS: Add Manual Diff / Slide Review NO; Basophils Absolute Auto 0 /uL (0-100); Basophils Percent Auto 0.2 % (0-2); Eosinophils Absolute Auto 0 /uL (0-450); Eosinophils Percent Auto 0.6 % (2-4); Hematocrit 34.9 % (36-46); Hemoglobin 12.4 g/dL (12.0-16.0); Lymphocytes Absolute Auto 1400 /uL (1100-4500); Lymphocytes Percent Auto 18.7 % (25-40); Mean Corpuscular HGB Conc 35.6 % (30-36); Mean Corpuscular Volume 92.9 fL (80-100); Monocytes Absolute Auto 600 /uL (0-900); Monocytes Percent Auto 7.5 % (3-14); Neutrophils Absolute Auto 5500 /uL (1500-7000); Platelet Count 162 X10^3/uL (150-400); Red Blood Cell Count 3.75 X10^6/uL (4.0-5.2); Red Cell Distribution Width 12.9 % (11.6-14.8); White Blood Cell Count 7.5 X10^3/uL (4.5-11.0)
--- NOTE | 2023-08-25 23:29 | ED_ITS ---
HPI - Abdominal Pain General Chief Complaint: Abdominal Pain Stated Complaint: pain around waist and front/ T-0 Time Seen by Provider: 08/25/23 22:45 Source: patient Mode of arrival: Ambulatory History of Present Illness HPI narrative: This is a 77-year-old female with a history of atrial fibrillation who arrives by private vehicle. She reporting left periumbilical and lower quadrant abdominal pain that has been ongoing for about 24 hours. She described it as sharp. It hurts to move, she has baseline diarrhea which is unchanged, she is had nausea without vomiting. No urinary symptoms, has not had similar pain in the past. Reports that she had some type of abdominal surgery after a traumatic injury years ago, does not know whether or not she had a splenectomy. Has not had any blood in her baseline diarrhea. No recent changes in her medications, she is anticoagulated for atrial fibrillation. Related Data Home Medications Medication Instructions Recorded Confirmed amlodipine 10 mg tablet 10 mg PO DAILY 01/08/19 04/12/19 atorvastatin 10 mg tablet 10 mg PO DAILY 01/08/19 04/12/19 benazepril 40 mg tablet 40 mg PO DAILY 01/08/19 04/12/19 Previous Rx's Medication Instructions Recorded albuterol sulfate 90 mcg/actuation 2 puff inhalation Q4-6H PRN 04/30/20 aerosol inhaler shortness of breath or wheezing #18 grams fluticasone propionate 50 1 spray intranasal BID PRN allergy 04/30/20 mcg/actuation nasal symptoms ##1 spray,suspension (Flonase Allergy Relief) ondansetron 4 mg disintegrating 4 mg PO Q6H PRN nausea and 08/26/23 tablet vomiting #7 tabs Allergies Allergy/AdvReac Type Severity Reaction Status Date / Time Penicillins [PENICILLINS] Allergy Severe ANAPHYLAXIS Verified 04/30/20 14:09 Patient History Medical History Acute sinusitis Allergic rhinitis (11/01/14) Chest pain Dyspnea Fatigue Hyperlipidemia Surgical History Status post hysterectomy Family History Father Congestive heart failure Hypertrophic cardiomegaly Brother Congestive heart failure Hypertrophic cardiomyopathy Sister Congestive heart failure Hypertrophic cardiomyopathy Sister Heart disease Pacemaker Social History Smoking Status: Never smoker second hand exposure: No alcohol intake: current substance use type: does not use Smoking Status: Never smoker alcohol intake frequency: holidays/special occasions only Substance Use Type: does not use Exam Initial Vital Signs Initial Vital Signs: Vital Signs Temperature 97.6 F 08/25/23 22:27 Pulse Rate 115 H 08/25/23 22:27 Respiratory Rate 28 H 08/25/23 22:27 Blood Pressure 137/93 H 08/25/23 22:27 Pulse Oximetry 98 08/25/23 22:27 Oxygen Delivery Method Room Air 08/25/23 22:27 Const General: No acute distress HENMT Head: normocephalic and atraumatic Neck Neck: supple Resp Effort & Inspection: normal respiratory effort Auscultation: clear to auscultation bilaterally Cardio Rate: tachycardic Rhythm: abnormal rhythm and other (Irregularly irregular) GI Inspection: normal to inspection Palpation: soft, guarding (Voluntary guarding in the periumbilical and left flank area), No hernia, No mass, No pulsatile mass and tender Auscultation: normal bowel sounds Other: Left CVAT is present Back/Spine/Pelvis Back: normal to inspection Skin General: dry skin and warm Neuro General: patient alert and patient oriented x3 Course Course Course Narrative: Pain is improved after ondansetron and hydromorphone. Abdomen is no longer tender. Discussed workup, discussed recommendations for outpatient follow-up and symptomatic care at home. Also discussed incidental finding of right renal mass and the need for primary care follow up regarding this Orders Ordered: ED Orders 08/25/23 22:32 EKG-12 Lead Stat 08/25/23 22:48 Comprehensive Metabolic Panel Stat Lipase Stat 08/25/23 22:58 Lactate (Lactic Acid) Stat 08/25/23 23:11 Complete Blood Count AUTO DIFF Stat 08/25/23 23:29 CT abdomen pelvis w con Stat 08/26/23 01:06 Urinalysis and Microscopic Stat Ondansetron HCl (Ondansetron 4 Mg Odt) 4 mg PO NOW PRN PRN Reason: Nausea And Vomiting Ondansetron HCl (Ondansetron 4 Mg/2 Ml Inj) 4 mg IV NOW PRN PRN Reason: Nausea And Vomiting Last Admin: 08/25/23 22:59 Dose: 4 mg Documented By: COURTNEY Discontinued Medications Hydrocodone Bitart/Acetaminophen (Hydrocodone/Acet 5/325 Prepack) 1 bottle MISC DIRECTED ONE Stop: 08/26/23 01:07 Hydromorphone HCl (Hydromorphone 0.5 Mg Inj) 0.5 mg IV NOW ONE Stop: 08/25/23 23:30 Last Admin: 08/25/23 23:37 Dose: 0.5 mg Documented By: COURTNEY Sodium Chloride (Normal Saline 0.9%) 1,000 mls @ 1,000 mls/hr IV BOLUS ONE Stop: 08/26/23 00:32 Last Admin: 08/25/23 23:37 Dose: 1,000 mls/hr Documented By: COURTNEY Metoprolol Tartrate (Metoprolol Ir 25 Mg Tablet) 25 mg PO NOW ONE Stop: 08/26/23 00:11 Last Admin: 08/26/23 00:18 Dose: 25 mg Vital Signs Vital signs: Vital Signs - 8 hr 08/25/23 22:27 08/25/23 22:35 08/25/23 22:35 Temperature 97.6 F Pulse Rate 115 H 71 Respiratory Rate 28 H Blood Pressure 137/93 H 127/88 Pulse Oximetry 98 95 Oxygen Delivery Method Room Air 08/25/23 23:00 08/25/23 23:30 08/26/23 00:00 Temperature Pulse Rate 96 H 112 H 100 H Respiratory Rate Blood Pressure 127/88 Pulse Oximetry 95 95 92 Oxygen Delivery Method 08/26/23 00:13 08/26/23 00:13 08/26/23 00:30 Temperature Pulse Rate 116 H 121 H Respiratory Rate Blood Pressure 142/110 H Pulse Oximetry 95 96 Oxygen Delivery Method 08/26/23 00:30 08/26/23 00:55 08/26/23 00:55 Temperature Pulse Rate 111 H Respiratory Rate Blood Pressure 125/92 H 127/74 Pulse Oximetry 93 Oxygen Delivery Method 08/26/23 01:00 08/26/23 01:00 Temperature Pulse Rate 93 H Respiratory Rate Blood Pressure 113/69 Pulse Oximetry 91 Oxygen Delivery Method MDM - Abdominal Pain Lab Data Lab results narrative: CBC with diff and CMP are unremarkable, lactic acid is normal, lipase is normal, urine dipstick is unremarkable 08/25/23 23:11 08/25/23 22:48 Labs: Lab Results 08/25/23 08/25/23 08/25/23 Range/Units 22:48 22:58 23:11 WBC 7.5 (4.5-11.0) X10^3/uL RBC 3.75 L (4.0-5.2) X10^6/uL Hgb 12.4 (12.0-16.0) g/dL Hct 34.9 L (36-46) % MCV 92.9 (80-100) fL MCH 33.0 (26-34) PG MCHC 35.6 (30-36) % RDW 12.9 (11.6-14.8) % Plt Count 162 (150-400) X10^3/uL Neut % (Auto) 73.0 (50-75) % Lymph % (Auto) 18.7 L (25-40) % [place] % (Auto) 7.5 (3-14) % Eos % (Auto) 0.6 L (2-4) % Baso % (Auto) 0.2 (0-2) % Neut # (Auto) 5500 (3748-6710) /uL Lymph # (Auto) 1400 (4909-2757) /uL Swift # (Auto) 600 (0-900) /uL Eos # (Auto) 0 (0-450) /uL Baso # (Auto) 0 (0-100) /uL Sodium 138 (137-145) mmol/L Potassium 4.1 (3.4-5.1) mmol/L Chloride 105 (98-107) mmol/L Carbon Dioxide 22 (22-32) mmol/L BUN 23 H (7-17) mg/dL Creatinine 0.94 (0.52-1.04) mg/dL Estimated GFR > 60 (>60) mL/min BUN/Creatinine Ratio 24.5 H (6-22) Glucose 100 (80-110) mg/dL Lactate 0.8 (0.7-2.1) mmol/L Calcium 10.2 (8.4-10.2) mg/dL Total Bilirubin 0.8 (0.2-1.3) mg/dL AST 45 H (14-36) IU/L ALT 53 H (<35) IU/L Alkaline Phosphatase 55 (38-126) U/L Total Protein 7.1 (6.3-8.2) g/dL Albumin 4.1 (3.5-5.0) g/dL Globulin 3.0 (1.7-4.1) g/dL Albumin/Globulin Ratio 1.4 (1.0-2.8) Lipase 111 (23-300) U/L Point of care testing: Point of Care Testing Test Results Not applicable Urine Dip Bedside Urine Glucose Negative Bedside Urine Bilirubin - Negative Bedside Urine Ketone - Negative Urine Specific [place] 1.005 Bedside Urine Occult Blood - Negative Bedside Urine pH 6.0 Bedside Urine Protein - Negative Bedside Urine Urobilinogen - Negative Bedside Urine Nitrite - Negative Bedside Urine Leukocytes - Negative Esterase Imaging Data CT scan - abdomen/pelvis: My Impression: Independently reviewed CT abdomen and pelvis, I did not note any acute abnormalities Radiologist's Impression: IMPRESSION: Minimal appearance of several small scattered fluid-filled bowel loops overall in a nonspecific pattern. Lobulated focus of heterogeneous attenuation the posterior aspect of the right kidney suspicious for mass such as renal cell. Overall appearance of the kidney within this region is markedly lobulated. Further evaluation on a nonemergent basis is recommended with CT/MRI with renal protocol for better delineation. Low-attenuation focus within the anterior spleen. This may represent area previous infarction or inflammation. However, other etiologies cannot be excluded. No priors are available for comparison. As clinically indicated, short interval imaging follow-up is recommended. Dictated by: Coco Gr M.D. on 08/26/2023 at 0:36 Approved by: Coco Gr M.D. on 08/26/2023 at 0:44 Treatment and Disposition Social Determinants of Health that impact treatment or disposition: Reportedly uses alcohol daily MDM Narrative Medical decision making narrative: 77-year-old female presenting with left flank and left lower quadrant abdominal pain. She has diarrhea at baseline did have some nausea and vomiting today also. Differential diagnosis would include ureteral stone, pyelonephritis, diverticulitis, bowel obstruction an aortic pathology. She is nontoxic in appearance and is in atrial fibrillation which is reportedly her baseline. Workup is reassuring without evidence of diverticulitis bowel obstruction or left kidney stone/infection. There is an incidental finding of a right renal mass which can be worked up as an outpatient. Symptoms are improved prior to discharge. Discharge Plan Departure Patient Disposition: Home Clinical Impression: Abdominal pain Qualifiers: Abdominal location: left lower quadrant Qualified Code(s): R10.32 - Left lower quadrant pain Instructions: DI for Abdominal Pain-Adult Activity Restrictions/Additional Instructions: Emergency department workup tonight is reassuring. No serious cause for abdominal pain is identified. I think it is safe for you to go home. I have provided a prescription for just a few [place] to use as needed for pain you can use 1 every 6 hours. You can also use plain acetaminophen (Tylenol) 650 mg which is 2 tablets as needed for pain. Remember that each [place] would count as a 325 mg Tylenol, your total daily dose of Tylenol should not exceed 3000 mg. There was an incidental finding today of a right kidney mass seen on CT. Discussed this with your primary care provider it may need further outpatient workup. Continue previous home medications, I would recommend a clear liquid diet until your pain starts to get better. I have also sent a prescription for ondansetron, you can use this medicine as needed for nausea. If you are having increasing abdominal pain fevers uncontrolled vomiting or other acute symptoms return to the emergency department. Prescriptions: New ondansetron 4 mg tablet,disintegrating 4 mg PO Q6H PRN (Reason: nausea and vomiting) Qty: 7 0RF No Action benazepril 40 mg tablet 40 mg PO DAILY amlodipine 10 mg tablet 10 mg PO DAILY atorvastatin 10 mg tablet 10 mg PO DAILY albuterol sulfate 90 mcg/actuation HFA aerosol inhaler 2 puff INHALATION Q4-6H PRN (Reason: shortness of breath or wheezing) Qty: 18 2RF fluticasone propionate [Flonase Allergy Relief] 50 mcg/actuation spray,suspension 1 spray Intranasal BID PRN (Reason: allergy symptoms) Qty: 1 1RF Referrals: Camilla Mosley MD [Primary Care Provider] - Stand Alone Forms: Patient Portal/API
--- NOTE | 2023-08-25 23:29 | DI.CT.S_ITS ---
PROCEDURE: CT ABDOMEN PELVIS W CON INDICATIONS: llq abd pain TECHNIQUE: After the administration of oral and IV contrast, axial sections were acquired from the lung bases to the pubic symphysis. Coronal and sagittal reformats were performed. For radiation dose reduction, the following was used: automated exposure control, adjustment of mA and/or kV according to patient size. COMPARISON: [facility], , CT KUB, 06/17/2006, 10:59. FINDINGS: Image quality: Excellent. Lung bases: Dependent changes are present within the left base. Heart: Mildly enlarged. ABDOMEN: Liver: Simple hepatic cyst is present in the anterior liver measuring 2.2 cm. Gallbladder: No radiopaque gallstones or wall thickening. Biliary ducts: No biliary dilation. Pancreas: No ductal dilation. Spleen: Low-attenuation is present the anterior spleen measuring 3.7 x 2 point cm. Adrenal Glands: No adrenal nodules. Kidneys and Ureters: No hydronephrosis. Simple right renal cysts. There is lobulated focus of heterogeneous enhancement along the posterior mid renal pole measuring approximately 2.3 x 2.3 cm. 1.4 cm fat containing focus in the left kidney most consistent with angiomyolipoma. Stomach and Bowel: Collapse of the descending and sigmoid colon limiting evaluation. Several minimally prominent fluid-filled small bowel loops are present overall nonspecific in appearance. Peritoneum: Minimal dependent pelvic fluid.. No free air. Ventral Wall: No hernia. Abdominal Nodes: No retroperitoneal or mesenteric adenopathy by size criteria. Vessels: Aorta and inferior vena cava are normal in size. PELVIS: Pelvic Organs: Unremarkable. Bladder: Unremarkable. Pelvic Nodes: No enlarged lymph nodes. Miscellaneous: No inguinal hernias are seen. Bones: No aggressive osseous abnormality. IMPRESSION: Minimal appearance of several small scattered fluid-filled bowel loops overall in a nonspecific pattern. Lobulated focus of heterogeneous attenuation the posterior aspect of the right kidney suspicious for mass such as renal cell. Overall appearance of the kidney within this region is markedly lobulated. Further evaluation on a nonemergent basis is recommended with CT/MRI with renal protocol for better delineation. Low-attenuation focus within the anterior spleen. This may represent area previous infarction or inflammation. However, other etiologies cannot be excluded. No priors are available for comparison. As clinically indicated, short interval imaging follow-up is recommended. Dictated by: Coco Gr M.D. on 08/26/2023 at 0:36 Approved by: Coco Gr M.D. on 08/26/2023 at 0:44
[2023-08-25 23:30] VITALS: BP 127/88; PULSE 112; O2SAT 95
[2023-08-25] MEDS: HYDROMORPHONE 0.5 MG INJ IV (23:37)
[2023-08-25] MEDS: SODIUM CHLORIDE 0.9% 1,000 ML 1000 ML IV (23:37)
[2023-08-26] VITALS: PULSE 100; O2SAT 92
[2023-08-26 00:13] VITALS: BP 142/110; PULSE 116; O2SAT 95
[2023-08-26] MEDS: METOPROLOL IR 25 MG TABLET PO (00:18)
[2023-08-26 00:30] VITALS: BP 125/92; PULSE 121; O2SAT 96
[2023-08-26 00:55] VITALS: BP 127/74; PULSE 111; O2SAT 93
[2023-08-26 01:00] VITALS: BP 113/69; PULSE 93; O2SAT 91
[2023-08-26 01:12] LABS: Appearance Urine UA CLEAR; Bilirubin Urine UA NEGATIVE (NEGATIVE); Color Urine UA YELLOW; Glucose Urine UA NEGATIVE (Negative); Ketones Urine UA NEGATIVE (NEGATIVE); Leukocyte Esterase Urine UA TRACE (NEGATIVE); Nitrite Urine UA NEGATIVE (Negative); Occult Blood Urine UA NEGATIVE (Negative); Protein Urine UA NEGATIVE (Negative); Urobilinogen Urine UA 0.2 E.U./dL (0.2)
[2023-08-26 01:16] LABS: pH Urine UA 5.5 (4.5-8.0)
[2023-08-26] MEDS: HYDROCODONE/ACET 5/325 PREPACK 1 BOTTLE MISC (01:16)
[2023-08-26 01:20] LABS: Bacteria Urine Occasional (0-1); Culture Indicated Urine Specimen Cultured; RBC Urine 0-1/HPF (0-5/HPF); Squamous Epithelial Cell Urine 0-1 /HPF (0-5/HPF); WBC Urine 5-10/HPF (0-5/HPF)
== END 2023-08-26 01:22 | disposition home or self-care (01) ==
PROVIDERS: Emergency Provider Emergency Medicine; PCP Internal Medicine
DX: R10.32 Left lower quadrant pain (principal); R19.7 Diarrhea, unspecified; R11.2 Nausea with vomiting, unspecified
CPT/HCPCS: 36415; 74177; 80053; 81001; 81003; 81025; 83605; 83690; 85025; 87086; 93005; 93010; 96361; 96374; 96375; 99284; J1170; J2405; Q9967

== ENCOUNTER 2023-10-17 17:20 | Inpatient (IN) | payer MEDICARE, OTHER, SELFPAY ==
[2023-10-17] VITALS (25 sets, daily range): BP systolic 91–126; BP diastolic 61–90; PULSE 86–167; RESP 18–34; TEMP 36.1–36.5; O2SAT 91–96; BMI 29.2; BMI 29.6
--- NOTE | 2023-10-17 17:40 | DI.RAD.S_ITS ---
PROCEDURE: XR CHEST 1V INDICATIONS: Shortness of breath TECHNIQUE: One view of the chest was acquired. COMPARISON: [facility], CR, XR CHEST 1V, 11/06/2018, 23:01. FINDINGS: Surgical changes and devices: None. Lungs and pleura: Diffuse interstitial prominence. Suggestion of minimal vascular congestion. Bilateral pleural effusions larger on the right. No pneumothorax. Mediastinum: Mediastinal contours appear normal. Heart size is moderately enlarged. Bones and chest wall: No suspicious bony lesions. Overlying soft tissues appear unremarkable. IMPRESSION: Cardiomegaly with findings suggestive of pulmonary edema/CHF. Dictated by: Cayetano Em M.D. on 10/17/2023 at 18:51 Approved by: Cayetano Em M.D. on 10/17/2023 at 18:52
--- NOTE | 2023-10-17 17:58 | DI.US.S_ITS ---
PROCEDURE: US PERIPH VENOUS LOW EXTREM BI INDICATIONS: swelling/red/ warm TECHNIQUE: Real-time imaging, as well as color and pulse Doppler interrogation, were performed of the deep veins of both legs from the inguinal ligament to the popliteal fossa, with documentation of the visualized calf veins. COMPARISON: None. FINDINGS: Right: The common femoral, femoral, popliteal, and the visualized calf veins are normally compressible, and free of intraluminal thrombus. Color and pulse Doppler demonstrate normal phasic intravascular flow. There is normal augmentation response to distal compression maneuver. Left: The common femoral, femoral, popliteal, and the visualized calf veins are normally compressible, and free of intraluminal thrombus. Color and pulse Doppler demonstrate normal phasic intravascular flow. There is normal augmentation response to distal compression maneuver. IMPRESSION: No findings of deep venous thrombosis in either lower extremity. Dictated by: Eduarda Martinez M.D. on 10/17/2023 at 20:14 Approved by: Eduarda Martinez M.D. on 10/17/2023 at 20:14
[2023-10-17 18:31] LABS: INR 1.1 (0.9-1.3); Prothrombin Time 12.6 SECONDS (9.4-12.5)
[2023-10-17 18:36] LABS: Add Manual Diff / Slide Review NO; Alanine Aminotransferase 72 IU/L (<35); Albumin 4.3 g/dL (3.5-5.0); Albumin Globulin Ratio 1.3 (1.0-2.8); Alkaline Phosphatase 65 U/L (38-126); Aspartate Aminotransferase 74 IU/L (14-36); BUN Creatinine Ratio 27.5 (6-22); Basophils Absolute Auto 100 /uL (0-100); Basophils Percent Auto 0.8 % (0-2); Bilirubin Total 1.2 mg/dL (0.2-1.3); Blood Urea Nitrogen 22 mg/dL (7-17); Calcium 10.1 mg/dL (8.4-10.2); Carbon Dioxide 17 mmol/L (22-32); Chloride 106 mmol/L (98-107); Eosinophils Absolute Auto 0 /uL (0-450); Eosinophils Percent Auto 0.3 % (2-4); Estimated Glomerular Filt Rate > 60 mL/min (>60); Globulin 3.3 g/dL (1.7-4.1); Glucose 103 mg/dL (80-110); Hematocrit 37.1 % (36-46); Hemoglobin 12.7 g/dL (12.0-16.0); Lymphocytes Absolute Auto 800 /uL (1100-4500); Mean Corpuscular HGB Conc 34.2 % (30-36); Mean Corpuscular Hemoglobin 32.5 PG (26-34); Monocytes Absolute Auto 400 /uL (0-900); Monocytes Percent Auto 4.8 % (3-14); Neutrophils Absolute Auto 7100 /uL (1500-7000); Neutrophils Percent Auto 84.1 % (50-75); Platelet Count 211 X10^3/uL (150-400); Red Blood Cell Count 3.91 X10^6/uL (4.0-5.2); Red Cell Distribution Width 14.5 % (11.6-14.8); Sodium 135 mmol/L (137-145); Total Protein 7.6 g/dL (6.3-8.2); White Blood Cell Count 8.4 X10^3/uL (4.5-11.0)
[2023-10-17 18:37] LABS: HEMOLYSIS 184 (0-50)
--- NOTE | 2023-10-17 18:38 | ED.SOB ---
HPI - SOB/Dyspnea General Chief Complaint: Shortness of Breath/Dyspnea Stated Complaint: covid+, rapid heartbeat, leg swelling,snt by [place] Time Seen by Provider: 10/17/23 17:58 Source: patient Mode of arrival: Ambulatory Limitations: no limitations History of Present Illness HPI Narrative: 77-year-old female with history of hypertension, hyperlipidemia presents by walk-in clinic for shortness of breath, palpitations, leg swelling. Patient states that she has woken up in the middle of the night gasping for air several weeks now, but she states that she was ?stubborn? and did not want to seek any medical evaluation. She states that she becomes very fatigued and short of breath when doing even minor activities. Today she noticed that her legs were very swollen and that prompted her to finally agree to seek evaluation. Related Data Home Medications Medication Instructions Recorded Confirmed amlodipine 10 mg tablet 10 mg PO DAILY 01/08/19 10/17/23 benazepril 40 mg tablet 40 mg PO DAILY 01/08/19 10/17/23 budesonide 3 mg 9 mg PO DAILY 10/17/23 10/17/23 capsule,delayed,extended release Previous Rx's Medication Instructions Recorded albuterol sulfate 90 mcg/actuation 2 puff inhalation Q4-6H PRN 04/30/20 aerosol inhaler shortness of breath or wheezing #18 grams fluticasone propionate 50 1 spray intranasal BID PRN allergy 04/30/20 mcg/actuation nasal symptoms ##1 spray,suspension (Flonase Allergy Relief) Allergies Allergy/AdvReac Type Severity Reaction Status Date / Time Penicillins [PENICILLINS] Allergy Severe ANAPHYLAXIS Verified 10/17/23 16:57 Review of Systems Review of Systems Narrative: Negative except as noted above Patient History Medical History Lesion of right [place] kidney Hyperlipidemia Acute sinusitis Chest pain Dyspnea Fatigue Allergic rhinitis (11/01/14) Surgical History Status post hysterectomy Family History Father Congestive heart failure Hypertrophic cardiomegaly Brother Congestive heart failure Hypertrophic cardiomyopathy Sister Congestive heart failure Hypertrophic cardiomyopathy Sister Heart disease Pacemaker Social History household members: spouse Smoking Status: Never smoker second hand exposure: No alcohol intake: current substance use type: does not use Smoking Status: Never smoker alcohol intake frequency: holidays/special occasions only Substance Use Type: does not use Exam Initial Vital Signs Initial Vital Signs: Vital Signs Temperature 97.0 F L 10/17/23 17:33 Pulse Rate 139 H 10/17/23 17:33 Respiratory Rate 18 10/17/23 17:33 Blood Pressure 118/75 10/17/23 17:33 Const: Awake, alert, no acute distress Cardiac: Tachycardia, irregularly irregular rhythm RESP: Dyspnea with exertion, bibasilar crackles GI: Atraumatic, soft, nontender, nondistended MSK: 4+ pitting edema to thighs bilaterally, full range of motion, pulses equal Skin: Warm, Dry, intact, no rashes Neuro: AO x3, CN II-XII grossly intact, moves all extremities Course Orders Ordered: ED Orders 10/17/23 17:40 XR chest 1V Stat EKG-12 Lead Stat Measure peak expiratory flow ONCE RT Consult Eval and Treat NOW 10/17/23 17:58 US periph venous low extrem bi Stat 10/17/23 18:16 Complete Blood Count AUTO DIFF Stat Comprehensive Metabolic Panel Stat D Dimer Stat Lactate (Lactic Acid) Stat NT-proBNP (BNP-Adult 18+) Stat Prothrombin Time INR Stat Troponin I Stat 10/17/23 19:20 CT angio chest PE protocol Stat Albuterol (Albuterol 2.5 Mg/3 Ml Neb (Adult)) 2.5 mg INH [id number] PRN PRN Reason: Dyspnea Benzonatate (Benzonatate 100 Mg Capsule) 100 mg PO TID PRN PRN Reason: Cough Budesonide (Budesonide 3 Mg Cap) 9 mg PO DAILY JOHNATHAN Calcium Carbonate (Calcium Carbonate 500 Mg Tab) 1,000 mg PO Q4HR PRN PRN Reason: Dyspepsia Docusate Sodium (Docusate 100 Mg Capsule) 100 mg PO BID JOHNATHAN Enoxaparin Sodium (Enoxaparin 40 Mg/0.4 Ml Syringe) 40 mg SUBCUT DAILY JOHNATHAN Fluticasone Propionate (Fluticasone 120 [place]/16 Gm [place].Susp) 1 spray NASAL BID PRN PRN Reason: allergy symptoms Furosemide (Furosemide 40 Mg/4 Ml Vial) 40 mg IV Q12H JOHNATHAN Hydralazine HCl (Hydralazine 20 Mg/Ml Vial) 10 mg IV Q6HR PRN PRN Reason: SBP>= 160 or DBP >=110 DILTIAZEM (Diltiazem 125 Mg/125 Ml-D5w) 125 mg in 125 mls @ 5 mls/hr IV TITRATE JOHNATHAN; Protocol Last Titration: 10/18/23 00:47 Dose: 10 mg/hr, 10 mls/hr Documented By: Titration: 10/18/23 00:00 Dose: 5 mg/hr, 5 mls/hr Documented By: Admin: 10/17/23 22:14 Dose: 2.5 mg/hr, 2.5 mls/hr Documented By: SB Lisinopril (Lisinopril 20 Mg Tablet) 40 mg PO DAILY [facility] Melatonin (Melatonin 3 Mg Tablet) 9 mg PO BEDTIME PRN PRN Reason: insomnia Metoprolol Tartrate (Metoprolol Ir 25 Mg Tablet) 25 mg PO BID [facility] Last Admin: 10/18/23 00:51 Dose: 25 mg Documented By: Naloxone HCl (Naloxone 0.4 Mg/Ml Vial) 0.2 mg IV Q2MIN PRN PRN Reason: Opiate Reversal Ondansetron HCl (Ondansetron 4 Mg/2 Ml Inj) 4 mg IV Q8HR PRN PRN Reason: Nausea And Vomiting Oxycodone HCl (Oxycodone Ir 5 Mg Tablet) 5 mg PO Q3H PRN PRN Reason: Pain, Moderate (4-6) Discontinued Medications Albuterol (Albuterol Hfa Mdi 60 Puff/8 Gm Inhaler) 2 puff INH Q4-6H PRN PRN Reason: shortness of breath or wheezing Amlodipine Besylate (Amlodipine 5 Mg Tablet) 10 mg PO DAILY [facility] Diltiazem HCl (Diltiazem 5 Mg/Ml Sdv) 20 mg IV NOW ONE Stop: 10/17/23 18:00 Last Admin: 10/17/23 18:52 Dose: 20 mg Documented By: MLM Diltiazem HCl (Diltiazem 5 Mg/Ml Sdv) 20 mg IV NOW ONE Stop: 10/17/23 21:21 Last Admin: 10/17/23 21:27 Dose: 20 mg Documented By: SB Furosemide 60 mg/ Sodium (Chloride) 56 mls @ 112 mls/hr IV NOW ONE Stop: 10/17/23 19:01 Last Infusion: 10/17/23 20:34 Dose: Infused Documented By: Admin: 10/17/23 19:38 Dose: 112 mls/hr Documented By: LACEY Metoprolol Tartrate (Metoprolol Tartrate 5 Mg/5 Ml Inj) 5 mg IV Q5M [facility] Stop: 10/17/23 19:41 Last Admin: 10/17/23 20:26 Dose: 5 mg Documented By: Admin: 10/17/23 20:00 Dose: 5 mg Documented By: Admin: 10/17/23 19:47 Dose: 5 mg Documented By: LACEY Non-Formulary Medication (Benazepril) 40 mg PO DAILY [facility] Vital Signs Vital signs: Vital Signs - 8 hr 10/17/23 18:40 10/17/23 18:44 10/17/23 18:44 Pulse Rate 144 H 150 H Respiratory Rate 34 H 29 H Blood Pressure 117/61 Pulse Oximetry 94 94 Oxygen Delivery Method 10/17/23 18:52 10/17/23 19:00 10/17/23 19:00 Pulse Rate 167 H 108 H Respiratory Rate 26 H Blood Pressure 117/61 102/70 Pulse Oximetry 94 Oxygen Delivery Method 10/17/23 19:30 10/17/23 19:32 10/17/23 19:32 Pulse Rate 132 H 131 H Respiratory Rate 21 27 H Blood Pressure 125/88 Pulse Oximetry 95 96 Oxygen Delivery Method 10/17/23 19:49 10/17/23 19:49 10/17/23 20:00 Pulse Rate 139 H 108 H Respiratory Rate 25 H 20 Blood Pressure 126/90 Pulse Oximetry 95 92 Oxygen Delivery Method 10/17/23 20:00 10/17/23 20:30 10/17/23 20:32 Pulse Rate 112 H 116 H Respiratory Rate 21 23 Blood Pressure 110/82 Pulse Oximetry 91 92 Oxygen Delivery Method 10/17/23 20:32 10/17/23 21:00 10/17/23 21:00 Pulse Rate 118 H Respiratory Rate 24 Blood Pressure 110/75 101/76 Pulse Oximetry 92 Oxygen Delivery Method 10/17/23 21:15 10/17/23 21:15 10/17/23 21:30 Pulse Rate 116 H 123 H Respiratory Rate 23 22 Blood Pressure 116/74 Pulse Oximetry 94 94 Oxygen Delivery Method Room Air 10/17/23 21:31 10/17/23 21:31 10/17/23 21:46 Pulse Rate 86 90 Respiratory Rate 22 28 H Blood Pressure 99/76 Pulse Oximetry 94 93 Oxygen Delivery Method Room Air 10/17/23 21:46 10/17/23 22:00 Pulse Rate 114 H Respiratory Rate 26 H Blood Pressure 91/71 Pulse Oximetry 94 Oxygen Delivery Method MDM - SOB/Dyspnea Differential Diagnosis Differential diagnosis: Likely acute exacerbation of chronic obstructive airways disease, congestive heart failure and community acquired pneumonia Lab Data 10/17/23 18:16 10/17/23 18:16 Labs: Lab Results 10/17/23 10/17/23 Range/Units 16:45 18:16 WBC 8.4 (4.5-11.0) X10^3/uL RBC 3.91 L (4.0-5.2) X10^6/uL Hgb 12.7 (12.0-16.0) g/dL Hct 37.1 (36-46) % MCV 95.0 (80-100) fL MCH 32.5 (26-34) PG MCHC 34.2 (30-36) % RDW 14.5 (11.6-14.8) % Plt Count 211 (150-400) X10^3/uL Neut % (Auto) 84.1 H (50-75) % Lymph % (Auto) 10.0 L (25-40) % Bullock % (Auto) 4.8 (3-14) % Eos % (Auto) 0.3 L (2-4) % Baso % (Auto) 0.8 (0-2) % Neut # (Auto) 7100 H (6907-7768) /uL Lymph # (Auto) 800 L (5520-3375) /uL Bullock # (Auto) 400 (0-900) /uL Eos # (Auto) 0 (0-450) /uL Baso # (Auto) 100 (0-100) /uL PT 12.6 H (9.4-12.5) SECONDS INR 1.1 (0.9-1.3) D-Dimer 1353 H (<500) ng/ml Sodium 135 L (137-145) mmol/L Potassium 5.0 (3.4-5.1) mmol/L Chloride 106 (98-107) mmol/L Carbon Dioxide 17 L (22-32) mmol/L BUN 22 H (7-17) mg/dL Creatinine 0.80 (0.52-1.04) mg/dL Estimated GFR > 60 (>60) mL/min BUN/Creatinine Ratio 27.5 H (6-22) Glucose 103 (80-110) mg/dL Lactate 1.0 (0.7-2.1) mmol/L Calcium 10.1 (8.4-10.2) mg/dL Total Bilirubin 1.2 (0.2-1.3) mg/dL AST 74 H (14-36) IU/L ALT 72 H (<35) IU/L Alkaline Phosphatase 65 (38-126) U/L Troponin I 0.022 (0.01-0.034) ng/mL NT-Pro-B Natriuret Pep 3410 H (<450) pg/mL Total Protein 7.6 (6.3-8.2) g/dL Albumin 4.3 (3.5-5.0) g/dL Globulin 3.3 (1.7-4.1) g/dL Albumin/Globulin Ratio 1.3 (1.0-2.8) Triglycerides 66 (35-150) mg/dL Cholesterol 132 L (140-199) mg/dL LDL Cholesterol, Calc 58 (<100) mg/dL HDL Cholesterol 61 H (40-60) mg/dL TSH 1.49 (0.47-4.68) uIU/mL ECG Data Interpretation: atrial fibrillation, tachycardia, no ST-T wave changes, no STEMI MDM Narrative Medical decision making narrative: New a fib rvr with volume overload. Saturating well on room air and BP stable, however heart rate persistently 140s to 150s. Patient denies history of congestive heart failure or atrial fibrillation previously. Chest x-ray confirms volume overload and cardiomegaly. Patient obviously edematous and volume overloaded on exam. Empiric Lasix ordered, Cardizem for rate control. Patient has been experiencing symptoms for quite some time and is not a candidate for rhythm control without further testing. No significant rate control with Cardizem, we will trial metoprolol. Laboratory work is significant for elevated BNP. No significant elevation troponin. CT angio negative for pulmonary embolism, large right-sided pleural effusion seen. Patient briefly had improvement in heart rate with metoprolol doses x3, however rate controlled did not last very long and she became tachycardic again soon afterwards. Despite diuresis patient is still profoundly dyspneic and can not even sit up in bed without becoming very short of breath. Patient placed on Cardizem drip and we will admit for further treatment. Critical Care Time Critical Care Time Critical Care Time: Yes Total Critical Care Time: 46 Attestation: AFib with RVR requiring numerous IV medications for attempted rate control. Congestive heart failure with volume overload requiring IV diuretics. Discharge Plan Departure Patient Disposition: Admitted as Observation Clinical Impression: Congestive heart disease, Volume overload, Atrial fibrillation with RVR Admit Date/Time: 10/17/23 22:01 Admit Provider: Paulino Montelongo
[2023-10-17 18:47] LABS: NT-proBNP (BNP-Adult 18+) 3410 pg/mL (<450); Troponin I 0.022 ng/mL (0.01-0.034)
[2023-10-17] MEDS: dilTIAZem 5 MG/ML SDV 20 MG IV ×2 (18:52→21:27)
[2023-10-17 18:58] LABS: D Dimer 1353 ng/ml (<500)
--- NOTE | 2023-10-17 19:20 | DI.CT.S_ITS ---
PROCEDURE: CT ANGIO CHEST PE PROTOCOL INDICATIONS: DYSPNEA, NEW A FIB TECHNIQUE: After the administration of intravenous contrast, 2 mm thick sections acquired from the pulmonary apices to the posterior costophrenic angles. 3-dimensional maximum intensity projection (MIP) coronal and sagittal reformats were then acquired through the thorax. For radiation dose reduction, the following was used: automated exposure control, adjustment of mA and/or kV according to patient size. COMPARISON: Echocardiogram 03/18/2023. FINDINGS: Image quality: Diagnostic. Pulmonary arteries: Pulmonary arteries are normal in size, and demonstrate no intraluminal filling defects to to the level of the proximal subsegmental pulmonary arteries to suggest pulmonary embolus. Lower Neck: No enlarged lymph nodes. Thyroid: No thyroid nodules which require sonographic follow up, per consensus guidelines. Axillae: No enlarged lymph nodes. Chest Wall: Unremarkable. Bones: Unremarkable. Lungs and Pleura: No pneumothorax. Large right and trace left pleural effusions. Right subjacent atelectasis. Heart: Heart size is enlarged. No pericardial effusion. Thoracic Vessels: Ascending aorta is dilated measuring up to 5.0 cm in caliber. Mediastinum and Maya: No enlarged lymph nodes. Esophagus: No wall thickening. No hiatal hernia. Upper Abdomen: Visualized upper abdomen solid organs and bowel loops appear normal. IMPRESSION: No pulmonary embolus to the level of the proximal subsegmental pulmonary arteries. Dilated ascending aorta measuring up to 5.0 cm in caliber, similar to recent echocardiogram 03/18/2023 which demonstrated dilated ascending aorta measuring 4.8 cm. Large right pleural effusion with subjacent atelectasis. Trace left pleural effusion. Approved by: Eduarda Martinez M.D. on 10/17/2023 at 20:37
--- NOTE | 2023-10-17 19:22 | PC.NURSE ---
ultrasound at bedside now
[2023-10-17] MEDS: FUROSEMIDE 60 MG in SODIUM CHLORIDE 0.9% 50 ML 112 MG IV (19:38)
[2023-10-17] MEDS: METOPROLOL TARTRATE 5 MG/5 ML INJ IV ×3 (19:47→20:26)
--- NOTE | 2023-10-17 21:51 | PC.NURSE ---
Pt is getting short of breath with simply sitting up in bed. Pt became very short of breath when transferring from the stretcher to the CT table. O2 sats at baseline are 93-94% when not moving but when adjusting in bed pt drops to 88%. Pt still denies any chest pain.
--- NOTE | 2023-10-17 22:10 | DI.ECHO.S_ITS ---
[facility]---------+ [facility] +---------+ : : [id number] : : : : [id number] : : : : Phone: [phone]+ Echocardiogram Report + + :Name: ASIF FONTANEZ Study Date: 10/18/2023 Height: 70 in : :[facility] ReadingLocation: Weight: 184 lb : : Gender: Female BSA: 2.0 m2 : :: 1945 Age: 77 yrs BP: 106/85 mmHg: :Reason For Study: CHF : :Ordering Physician: SHAWNA, : :JESI Performed By: Ayala Cardozo : :Referring: JESI MATOS : + + Interpretation Summary The patient was in atrial fibrillation with heart rates between 80-130 bpm during the exam. The left ventricle is borderline dilated. The ejection fraction is estimated to be 25-30%. Diastolic function could not be accurately assessed due to atrial fibrillation. The left atrium is severely dilated. The right ventricle is normal in size and function. The right atrium is moderately dilated. There is moderate to severe mitral regurgitation. There is mild aortic stenosis. There is mild aortic regurgitation. There is moderate tricuspid regurgitation. The right ventricular systolic pressure is estimated to be at least 38 mmHg based on an estimated right atrial pressure of 3 mm Hg. The ascending aorta is severely enlarged, 4.8 cm. Compared to the prior study dated 03/18/2023, the ejection fraction has decreased, the atria now appear dilated and the MR and TR have worsened. Procedure: A two-dimensional transthoracic echocardiogram with color flow and Doppler was performed. The study quality was technically adequate. Comparison is made with the echocardiogram of 03/18/2023. The patient was in atrial fibrillation with heart rates between 80-130 bpm during the exam. Left Ventricle: The left ventricle is borderline dilated. There is normal left ventricular wall thickness. The ejection fraction is estimated to be 25- 30%. Diastolic function could not be accurately assessed due to atrial fibrillation. Right Ventricle: The right ventricle is normal in size and function. Atria: The left atrium is severely dilated. The right atrium is moderately dilated. There is no Doppler evidence for an interatrial shunt. Mitral Valve: The mitral valve leaflets appear mildly thickened, but open well. There is mild mitral annular calcification. There is moderate to severe mitral regurgitation. Aortic Valve: The aortic valve is mildly calcified. The aortic valve is trileaflet. The peak aortic velocity is 2.2 m/sec. The aortic valve mean gradient is 11 mmHg. There is mild aortic stenosis. There is mild aortic regurgitation. Tricuspid Valve: The tricuspid valve leaflets are thin and pliable. There is moderate tricuspid regurgitation. The right ventricular systolic pressure is estimated to be at least 38 mmHg based on an estimated right atrial pressure of 3 mm Hg. Pulmonic Valve: The pulmonic valve leaflets are thin and pliable; valve motion is normal. There is no pulmonic valvular regurgitation. Great Vessels: The aortic root is normal size. The ascending aorta is severely enlarged. The IVC is dilated (diameter is greater than 2.1 cm) yet it collapses greater than 50% with a sniff. This suggests a right atrial pressure of 8 mm Hg. Pericardium/ Pleura There is no pericardial effusion. MMode/2D Measurements & Calculations LVIDd: 5.3 cm LVOT diam: 2.1 cm LVIDs: 4.5 cm Ao root diam: 3.0 cm FS: 14.1 % asc Aorta Diam: 4.8 cm EPSS: 1.0 cm Ao Arch Diam (Prox Trans): 2.7 cm IVSd: 0.81 cm LVPWd: 0.81 cm LV michele. diameter/BSA (cm/m^2): 2.6 LV sys. diameter/BSA (cm/m^2): 2.3 LA A2 area: 30.9 cm2 RA long axis: 6.7 cm LA A4 area: 29.4 cm2 RA area: 25.9 cm2 LA length (vol): 7.1 cm RA vol: 85.0 ml LA vol: 109.1 ml RA : 42.2 ml/m2 LA vol index: 54.1 ml/m2 IVC diam: 1.9 cm RVD1 (basal): 3.8 cm TAPSE: 2.0 cm Doppler Measurements & Calculations Ao V2 max: 176.4 cm/sec LVOT Max William: 81.1 cm/sec Ao V2 mean: 127.9 cm/sec LV V1 max P.6 mmHg Ao max P.7 mmHg LV V1 VTI: 12.6 cm Ao mean P.2 mmHg SIDNEY(I,D): 1.4 cm2 Ao V2 VTI: 30.3 cm SIDNEY(V,D): 1.6 cm2 sev ratio: 0.42 SIDNEY indexed to BSA (cm^2/m^2): 0.71 AI P1/2t: 596.2 msec AI dec slope: 203.8 cm/sec2 MV E max william: 123.0 cm/sec TR max william: 274.6 cm/sec MV A max william: 1.7 cm/sec TR max P.2 mmHg MV E/A: 72.6 PA V2 max: 87.0 cm/sec Med Peak E' William: 6.1 cm/sec PA V2 mean: 56.5 cm/sec E/E' med: 20.3 PA mean P.4 mmHg Lat Peak E' William: 8.6 cm/sec PA pr(Accel): 58.4 mmHg E/E' lat: 14.3 E/e' average: 17.3 MV dec time: 0.15 sec MR ERO: 0.28 cm2 MR PISA: 3.1 cm2 SV(LVOT): 43.2 ml MR flow rate: 119.1 cm3/sec MR PISA radius: 0.71 cm Reading Physician:09:13 AM
[2023-10-17] MEDS: DILTIAZEM 125 MG/125 ML PIGGYBACK IV (22:14)
[2023-10-17 22:58] LABS: Cholesterol 132 mg/dL (140-199); HDL Cholesterol 61 mg/dL (40-60); LDL Cholesterol Calculated 58 mg/dL (<100); Triglycerides 66 mg/dL (35-150)
[2023-10-17 23:29] LABS: Thyroid Stimulating Hormone 1.49 uIU/mL (0.47-4.68)
--- NOTE | 2023-10-17 23:41 | PM.HP.1 ---
History of Present Illness History of Present Illness Chief complaint: covid+, rapid heartbeat, leg swelling,snt by [place] Narrative: 77 years old female with history of hypertension, COPD, hypertrophic cardiomyopathy, presented to the ER with 2 weeks of shortness of breath, dry cough, fatigue, poor sleep dizziness, lightheadedness and bilateral lower extremities edema. She was diagnosed with COVID-19 on 10/03/2023 but reported her symptoms were preceding COVID-19. Never been diagnosed with atrial fibrillation before. Denies any cardiac workup in the past. Denies any chest pain, fever, nausea, vomiting, abdominal pain, diarrhea or dysuria. She was seen earlier today in the clinic and was referred to the ED for further evaluation after she was found to have irregular heartbeats and CHF symptoms. Initial laboratory shows WBC 8.4, INR 1.1, D-dimer 1353, sodium 135, creatinine 0.8, glucose 103, lactic acid 1, AST 74, ALT 72, total bilirubin 1.2, troponin 0.02, BNP 3410, ultrasound lower extremity was negative for DVT, CT angiogram of the chest was negative for PE, large right pleural effusions with adjacent atelectasis. In the ER she was found to have atrial fibrillation with RVR and was started on Cardizem drip. She also was given Lasix 60 mg IV. [facility] Medical History (Updated 10/17/23 @ 21:52 by Elissa Wood MD) Lesion of right [place] kidney Hyperlipidemia Acute sinusitis Chest pain Dyspnea Fatigue Allergic rhinitis (11/01/14) Surgical History Status post hysterectomy Family History Father Congestive heart failure Hypertrophic cardiomegaly Brother Congestive heart failure Hypertrophic cardiomyopathy Sister Congestive heart failure Hypertrophic cardiomyopathy Sister Heart disease Pacemaker Social History household members: spouse Smoking Status: Never smoker second hand exposure: No alcohol intake: current substance use type: does not use Meds Home Medications and Allergies Home Medications Medication Instructions Recorded Confirmed Type amlodipine 10 mg tablet 10 mg PO DAILY 01/08/19 10/17/23 History benazepril 40 mg tablet 40 mg PO DAILY 01/08/19 10/17/23 History albuterol sulfate 90 mcg/actuation 2 puff inhalation Q4-6H PRN 04/30/20 10/17/23 Rx aerosol inhaler shortness of breath or wheezing #18 grams fluticasone propionate 50 1 spray intranasal BID PRN allergy 04/30/20 10/17/23 Rx mcg/actuation nasal symptoms ##1 spray,suspension (Flonase Allergy Relief) budesonide 3 mg 9 mg PO DAILY 10/17/23 10/17/23 History capsule,delayed,extended release Allergies Allergy/AdvReac Type Severity Reaction Status Date / Time Penicillins [PENICILLINS] Allergy Severe ANAPHYLAXIS Verified 10/17/23 16:57 Review of Systems Review of Systems ROS: Yes All systems reviewed with the patient and are negative except as otherwise documented Constitutional Constitutional: Reports as per HPI and Reports system reviewed and no additional complaints, except as documented Eyes Eyes: Reports as per HPI and Reports system reviewed and no additional complaints, except as documented ENT Ears, Nose, Mouth, and Throat: Yes as per HPI and Yes system reviewed and no additional complaints, except as documented Cardiovascular Cardiovascular: Reports system reviewed and no additional complaints, except as documented Respiratory Respiratory: Reports system reviewed and no additional complaints, except as documented Gastrointestinal Gastrointestinal: Reports system reviewed and no additional complaints, except as documented Genitourinary Genitourinary: Reports system reviewed and no additional complaints, except as documented Musculoskeletal Musculoskeletal: Reports system reviewed and no additional complaints, except as documented, Reports abnormal gait and Reports numbness Neurologic Neurologic: Reports system reviewed and no additional complaints, except as documented, Reports abnormal gait, Reports confusion and Reports numbness Psychiatric Psychiatric: Reports system reviewed and no additional complaints, except as documented and Reports confusion Exam Vital Signs (past 8 hours): - 10/17/23 17:33 10/17/23 18:40 10/17/23 18:44 Temperature 97.0 F L Pulse Rate 139 H 144 H 150 H Respiratory Rate 18 34 H 29 H Blood Pressure 118/75 Pulse Oximetry 94 94 Oxygen Delivery Method 10/17/23 18:44 10/17/23 18:52 10/17/23 19:00 Temperature Pulse Rate 167 H 108 H Respiratory Rate 26 H Blood Pressure 117/61 117/61 Pulse Oximetry 94 Oxygen Delivery Method 10/17/23 19:00 10/17/23 19:30 10/17/23 19:32 Temperature Pulse Rate 132 H Respiratory Rate 21 Blood Pressure 102/70 125/88 Pulse Oximetry 95 Oxygen Delivery Method 10/17/23 19:32 10/17/23 19:49 10/17/23 19:49 Temperature Pulse Rate 131 H 139 H Respiratory Rate 27 H 25 H Blood Pressure 126/90 Pulse Oximetry 96 95 Oxygen Delivery Method 10/17/23 20:00 10/17/23 20:00 10/17/23 20:30 Temperature Pulse Rate 108 H 112 H Respiratory Rate 20 21 Blood Pressure 110/82 Pulse Oximetry 92 91 Oxygen Delivery Method 10/17/23 20:32 10/17/23 20:32 10/17/23 21:00 Temperature Pulse Rate 116 H 118 H Respiratory Rate 23 24 Blood Pressure 110/75 Pulse Oximetry 92 92 Oxygen Delivery Method 10/17/23 21:00 10/17/23 21:15 10/17/23 21:15 Temperature Pulse Rate 116 H Respiratory Rate 23 Blood Pressure 101/76 116/74 Pulse Oximetry 94 Oxygen Delivery Method Room Air 10/17/23 21:30 10/17/23 21:31 10/17/23 21:31 Temperature Pulse Rate 123 H 86 Respiratory Rate 22 22 Blood Pressure 99/76 Pulse Oximetry 94 94 Oxygen Delivery Method Room Air 10/17/23 21:46 10/17/23 21:46 10/17/23 22:00 Temperature Pulse Rate 90 114 H Respiratory Rate 28 H 26 H Blood Pressure 91/71 Pulse Oximetry 93 94 Oxygen Delivery Method 10/17/23 22:02 10/17/23 22:02 10/17/23 22:16 Temperature Pulse Rate 105 H Respiratory Rate 29 H Blood Pressure 102/62 98/73 Pulse Oximetry 93 Oxygen Delivery Method Room Air 10/17/23 22:16 10/17/23 22:30 10/17/23 22:31 Temperature Pulse Rate 108 H 110 H Respiratory Rate 24 26 H Blood Pressure 97/82 Pulse Oximetry 93 93 Oxygen Delivery Method Room Air 10/17/23 22:31 10/17/23 22:50 10/17/23 23:00 Temperature 97.7 F Pulse Rate 109 H 110 H 119 H Respiratory Rate 25 H 20 33 H Blood Pressure 101/67 Pulse Oximetry 94 93 93 Oxygen Delivery Method Room Air 10/17/23 23:02 10/17/23 23:02 Temperature Pulse Rate 117 H Respiratory Rate 26 H Blood Pressure 101/67 Pulse Oximetry 92 Oxygen Delivery Method Oxygen Delivery Method Room Air Const General: cooperative, comfortable and well developed Orientation: alert and oriented x3 [facility] Head: normal to inspection, normocephalic and atraumatic Face and sinus: normal facial exam Mouth: oral mucosae normal and moist mucous membranes Throat: posterior oropharynx normal Eyes General: appearance normal, both eyes and all related structures Pupils: PERRL EOM: EOM intact bilaterally Neck Neck: normal visual inspection and full ROM Chest Chest: normal inspection of the chest Resp Effort & Inspection: normal respiratory effort and able to speak in complete sentences Auscultation: clear to auscultation bilaterally Cardio Palpation: normal PMI Rate: regular rate Rhythm: regular rhythm Heart Sounds: S1 normal and S2 normal GI Inspection: normal to inspection Palpation: soft and no hepatosplenomegaly Auscultation: normal bowel sounds Skin General: no rashes or lesions noted Lesions: no lesions Rashes: no rashes Trauma: no lacerations or abrasions Neuro General: patient alert, patient awake, patient oriented x3 and no focal motor deficits Cranial Nerves: CN's II-XI intact bilaterally Cognition: normal cognition Speech: speech normal Gait: normal gait Motor: muscle tone normal throughout Sensory Exam: no sensory deficits noted Extrem General: full ROM and no calf tenderness Psych Appearance: grossly normal Mental Status: mental status grossly normal Speech and Movement: speech and movement normal Objective Labs 10/17/23 18:16 10/17/23 18:16 Labs: Laboratory Results - last 24 hr 10/17/23 10/17/23 16:45 18:16 WBC 8.4 RBC 3.91 L Hgb 12.7 Hct 37.1 MCV 95.0 MCH 32.5 MCHC 34.2 RDW 14.5 Plt Count 211 Neut % (Auto) 84.1 H Lymph % (Auto) 10.0 L [place] % (Auto) 4.8 Eos % (Auto) 0.3 L Baso % (Auto) 0.8 Neut # (Auto) 7100 H Lymph # (Auto) 800 L [place] # (Auto) 400 Eos # (Auto) 0 Baso # (Auto) 100 PT 12.6 H INR 1.1 D-Dimer 1353 H Sodium 135 L Potassium 5.0 Chloride 106 Carbon Dioxide 17 L BUN 22 H Creatinine 0.80 Estimated GFR > 60 BUN/Creatinine Ratio 27.5 H Glucose 103 Lactate 1.0 Calcium 10.1 Total Bilirubin 1.2 AST 74 H ALT 72 H Alkaline Phosphatase 65 Troponin I 0.022 NT-Pro-B Natriuret Pep 3410 H Total Protein 7.6 Albumin 4.3 Globulin 3.3 Albumin/Globulin Ratio 1.3 Triglycerides 66 Cholesterol 132 L LDL Cholesterol, Calc 58 HDL Cholesterol 61 H Assessment & Plan Assessment & Plan narrative: Acute respiratory failure with hypoxia,?most likely due to CHF exac. -Oxygen supplement to keep his oxygenation greater than 92% -Albuterol when necessary, Tessalon 100mg po QID prn -if the patient has significant hypoxic or lethargic will consider ABG A. Fib with RVR. -Admitted patient in ICU -start diltiazem drip. Closely monitor blood pressure and heart rate. Hold if the systolic blood pressures < 90 or heart rate is < 60. -will start metoprolol 25 mg po BID -Monitor patient's electrolyte closely. Keep K > 4, Mg > 2 -Check patient's cardiac enzymes,TSH a -Check echocardiogram -will evaluate the patient for benefits of oral anticoagulation therapy versus the risk of bleeding Acute on chronic diastolic heart failure. -Monitor I and O; daily standing weight; -diuresis with Lasix as BP can tolerate. -check BNP and repeat in 48 hours; low sodium diet -Monitor effectiveness of diuresis. Monitor renal function. -keep potassium> 4 and magnesium> 2 -Telemetry monitoring -Echo -Resume ACEI -Supplemental O2 as needed, goal SpO2> 90% Elevated D-dimer. CT angiogram and Doppler ultrasound negative for DVT/PE Hypertension. Restart benazepril and hold Amlodipine. Add Metoprolol Asthma. Albuterol as needed, budesonide and fluticasone Time Spent With Patient Time with patient: 50 to 69 minutes with 50% spent counseling/coordinating care Quality VTE Deep Vein Thrombosis/Pulmonary Embolism Present on Admission: No MIPS - Admit I confirm the patient?s Advance Care Plan is present, Code status is documented, Surrogate decision maker is in patient?s record [If Yes, STOP here]: Yes MIPS - Meds 'Current medications' to include all prescriptions, [id number] products, herbals, cannabis/cannabidiol products, and vitamin/mineral/dietary (nutritional) supplements. I have utilized all available resources to obtain, update, or review the patient?s current medications. [If Yes, STOP here]: Yes
[2023-10-18] VITALS (66 sets, daily range): BP systolic 72–167; BP diastolic 48–85; PULSE 81–138; RESP 18–35; TEMP 36.3–37.2; O2SAT 88–96
[2023-10-18] MEDS: METOPROLOL IR 25 MG TABLET PO ×3 (00:51→20:11)
[2023-10-18 02:39] LABS: Influenza A - CEPHEID Flu A NEGATIVE (NEGATIVE); Influenza B - CEPHEID Flu B NEGATIVE (NEGATIVE); Respiratory Syncytial Virus Negative (Negative)
[2023-10-18 02:46] LABS: Appearance Urine UA CLEAR; Bilirubin Urine UA NEGATIVE (NEGATIVE); Color Urine UA YELLOW; Glucose Urine UA NEGATIVE (Negative); Ketones Urine UA NEGATIVE (NEGATIVE); Leukocyte Esterase Urine UA NEGATIVE (NEGATIVE); Nitrite Urine UA NEGATIVE (Negative); Occult Blood Urine UA NEGATIVE (Negative); Protein Urine UA NEGATIVE (Negative); Specific Gravity Urine UA <=1.005 (1.000-1.035); Urobilinogen Urine UA 0.2 E.U./dL (0.2)
[2023-10-18 03:12] LABS: COVID-19 CEPHEID 4-PLEX PCR Negative (Negative)
[2023-10-18 03:12] LABS: pH Urine UA 5.5 (4.5-8.0)
[2023-10-18 03:13] LABS: Bacteria Urine None Seen; Culture Indicated Urine Cult Not Indicated; RBC Urine None Seen (0-5/HPF); Squamous Epithelial Cell Urine 0-1 /HPF (0-5/HPF); Urine Volume 10mL (spun); WBC Urine None Seen (0-5/HPF)
--- NOTE | 2023-10-18 06:19 | PC.NURSE ---
Patient arrived to unit around 2250. Aox4, mildly hypotensive, in Afib 80-120s. Ambulated with steady gait, stand-by assist to bed from ED stretcher. Patient remained hypotensive throughout the night, SBP in the 90s, on Diltiazem gtt titrated to maintain goal HR <90. +3 pitting Edema to BLE. Tolerating RA, clear throughout to auscultation, reports SOB with exertion. Dry cough noted intermittently. Tolerating heart healthy diet. Voids clear yellow urine per external catheter, no BM noted this shift. Patient ambulated to [facility] x3 times, passing gas each time. PIV x2 to LUE, Diltiazem gtt to LFA. Skin intact. Patient reports having no pain. Burnt Lime Drawer socks and bedalarm on for safety. Call light within reach. Will continue plan of care. 0320-Patient ran a 18 beat run of DAIANA made aware 0620-ECHO at bedside
--- NOTE | 2023-10-18 08:01 | P.PN_ITS ---
Subjective Subjective Interval history: She is feeling better, except she is having some nausea. No short of breath and no chest pain. Exam Vital Signs (past 8 hours): - 10/18/23 00:30 10/18/23 00:30 10/18/23 01:00 Temperature Pulse Rate 120 H 126 H Respiratory Rate 20 18 Blood Pressure 105/79 Pulse Oximetry 93 93 Oxygen Delivery Method 10/18/23 01:01 10/18/23 01:01 10/18/23 01:30 Temperature Pulse Rate 124 H 122 H Respiratory Rate 22 22 Blood Pressure 133/75 Pulse Oximetry 94 Oxygen Delivery Method 10/18/23 01:34 10/18/23 01:34 10/18/23 02:00 Temperature Pulse Rate 127 H 100 H Respiratory Rate 20 22 Blood Pressure 95/71 Pulse Oximetry 93 Oxygen Delivery Method 10/18/23 02:09 10/18/23 02:10 10/18/23 02:10 Temperature Pulse Rate 99 H 92 H Respiratory Rate 22 20 Blood Pressure 98/76 Pulse Oximetry 93 93 Oxygen Delivery Method 10/18/23 02:30 10/18/23 02:30 10/18/23 03:00 Temperature Pulse Rate 96 H Respiratory Rate 20 Blood Pressure 107/72 99/65 Pulse Oximetry 92 Oxygen Delivery Method 10/18/23 03:00 10/18/23 03:30 10/18/23 03:31 Temperature Pulse Rate 91 H 98 H Respiratory Rate 22 20 Blood Pressure 89/67 L Pulse Oximetry 91 96 Oxygen Delivery Method 10/18/23 03:31 10/18/23 04:00 10/18/23 04:00 Temperature Pulse Rate 102 H 92 H Respiratory Rate 23 20 Blood Pressure 81/56 L Pulse Oximetry 96 94 Oxygen Delivery Method 10/18/23 04:00 10/18/23 04:03 10/18/23 04:03 Temperature 98.5 F Pulse Rate 103 H Respiratory Rate 20 Blood Pressure 92/63 Pulse Oximetry 93 Oxygen Delivery Method 10/18/23 04:30 10/18/23 04:30 10/18/23 04:37 Temperature Pulse Rate Respiratory Rate Blood Pressure 92/63 Pulse Oximetry 93 Oxygen Delivery Method Room Air 10/18/23 05:14 10/18/23 05:14 10/18/23 05:30 Temperature Pulse Rate 111 H Respiratory Rate 23 Blood Pressure 95/67 103/67 Pulse Oximetry 95 Oxygen Delivery Method 10/18/23 05:30 10/18/23 06:00 10/18/23 06:00 Temperature Pulse Rate 99 H 121 H Respiratory Rate 18 24 Blood Pressure 106/85 Pulse Oximetry 95 94 Oxygen Delivery Method 10/18/23 06:30 10/18/23 06:30 10/18/23 07:00 Temperature Pulse Rate 119 H 122 H Respiratory Rate 19 21 Blood Pressure 96/68 Pulse Oximetry 92 95 Oxygen Delivery Method 10/18/23 07:01 10/18/23 07:01 10/18/23 07:03 Temperature Pulse Rate 108 H Respiratory Rate 19 Blood Pressure 167/67 H 101/57 L Pulse Oximetry 94 Oxygen Delivery Method 10/18/23 07:03 Temperature Pulse Rate 107 H Respiratory Rate 22 Blood Pressure Pulse Oximetry 95 Oxygen Delivery Method Oxygen Delivery Method Room Air Narrative Exam Narrative: NAD, normal speech. Lungs clear with normal effort. Heart is irregular, no murmur. Abdomen is distended, nontender. She does have gross pitting edema of both legs up to the knee. Objective Labs 10/17/23 18:16 10/18/23 08:15 Labs: Laboratory Results - last 24 hr 10/17/23 10/17/23 10/17/23 16:45 18:16 23:55 WBC 8.4 RBC 3.91 L Hgb 12.7 Hct 37.1 MCV 95.0 MCH 32.5 MCHC 34.2 RDW 14.5 Plt Count 211 Neut % (Auto) 84.1 H Lymph % (Auto) 10.0 L [place] % (Auto) 4.8 Eos % (Auto) 0.3 L Baso % (Auto) 0.8 Neut # (Auto) 7100 H Lymph # (Auto) 800 L [place] # (Auto) 400 Eos # (Auto) 0 Baso # (Auto) 100 PT 12.6 H INR 1.1 D-Dimer 1353 H Sodium 135 L Potassium 5.0 Chloride 106 Carbon Dioxide 17 L BUN 22 H Creatinine 0.80 Estimated GFR > 60 BUN/Creatinine Ratio 27.5 H Glucose 103 Lactate 1.0 Calcium 10.1 Total Bilirubin 1.2 AST 74 H ALT 72 H Alkaline Phosphatase 65 Troponin I 0.022 NT-Pro-B Natriuret Pep 3410 H Total Protein 7.6 Albumin 4.3 Globulin 3.3 Albumin/Globulin Ratio 1.3 Triglycerides 66 Cholesterol 132 L LDL Cholesterol, Calc 58 HDL Cholesterol 61 H TSH 1.49 Urine Color Urine Appearance Urine pH Ur Specific [place] Urine Protein Urine Glucose (UA) Urine Ketones Urine Occult Blood Urine Nitrate Urine Bilirubin Urine Urobilinogen Ur Leukocyte Esterase Urine RBC Urine WBC Ur Squamous Epith Cells Urine Bacteria Ur Culture Indicated? Vol Urine Centrifuged SARS-CoV-2 (PCR) Negative Influenza A (RT-PCR) Flu a negative Influenza B (RT-PCR) Flu b negative RSV (PCR) Negative 10/18/23 01:40 WBC RBC Hgb Hct MCV MCH MCHC RDW Plt Count Neut % (Auto) Lymph % (Auto) [place] % (Auto) Eos % (Auto) Baso % (Auto) Neut # (Auto) Lymph # (Auto) [place] # (Auto) Eos # (Auto) Baso # (Auto) PT INR D-Dimer Sodium Potassium Chloride Carbon Dioxide BUN Creatinine Estimated GFR BUN/Creatinine Ratio Glucose Lactate Calcium Total Bilirubin AST ALT Alkaline Phosphatase Troponin I NT-Pro-B Natriuret Pep Total Protein Albumin Globulin Albumin/Globulin Ratio Triglycerides Cholesterol LDL Cholesterol, Calc HDL Cholesterol TSH Urine Color Yellow Urine Appearance Clear Urine pH 5.5 Ur Specific [place] <=1.005 Urine Protein Negative Urine Glucose (UA) Negative Urine Ketones Negative Urine Occult Blood Negative Urine Nitrate Negative Urine Bilirubin Negative Urine Urobilinogen 0.2 Ur Leukocyte Esterase Negative Urine RBC None seen Urine WBC None seen Ur Squamous Epith Cells 0-1 /hpf Urine Bacteria None seen Ur Culture Indicated? Cult not indicated Vol Urine Centrifuged 10ml (spun) SARS-CoV-2 (PCR) Influenza A (RT-PCR) Influenza B (RT-PCR) RSV (PCR) [facility] Medical History Lesion of right [place] kidney Hyperlipidemia Acute sinusitis Chest pain Dyspnea Fatigue Allergic rhinitis (11/01/14) Surgical History Status post hysterectomy Family History Father Congestive heart failure Hypertrophic cardiomegaly Brother Congestive heart failure Hypertrophic cardiomyopathy Sister Congestive heart failure Hypertrophic cardiomyopathy Sister Heart disease Pacemaker Social History household members: spouse Smoking Status: Never smoker second hand exposure: No alcohol intake: current substance use type: does not use Assessment & Plan Assessment & Plan narrative: Acute respiratory failure with hypoxia,?present on admission and improving. -secondary to pulmonary edema. -continue diuresis. -continue diuresis Atrial fibrillation with RVR, present on admission and improving. -Admitted patient in ICU -wean diltiazem drip as able. -continue metoprolol 25 mg po BID -Monitor patient's electrolyte closely. Keep K > 4, Mg > 2 -Check patient's cardiac enzymes,TSH a -Check echocardiogram (H/O and normal EF 03/27). -will evaluate the patient for benefits of oral anticoagulation therapy versus the risk of bleeding Acute on chronic diastolic heart failure. Present on admission and improving. -diuresis with Lasix as BP can tolerate. -Monitor effectiveness of diuresis. Monitor renal function. -Telemetry monitoring -Resume ACEI Elevated D-dimer. CT angiogram and Doppler ultrasound negative for DVT/PE Hypertension. Present on admission and stable. Restarted benazepril and hold Amlodipine. Added Metoprolol. Asthma. Present on admission and stable. -Albuterol as needed, budesonide and fluticasone DISPO: home around 10/20, likely HH. Time Spent With Patient Time with patient: 30 to 49 minutes with 50% spent counseling/coordinating care Quality VTE Deep Vein Thrombosis/Pulmonary Embolism Present on Admission: No
[2023-10-18 08:35] LABS: MRSA (Nasal) PCR Not Detected (Not Detect)
--- NOTE | 2023-10-18 09:00 | PT-IP ANOTE ---
PT eval order received. EMR reviewed. Talked with nurse this am and stated that pt still have elevated HR and to hold PT at this time.
[2023-10-18] MEDS: FUROSEMIDE 40 MG/4 ML VIAL IV ×2 (09:02→20:11)
[2023-10-18] MEDS: ENOXAPARIN 40 MG/0.4 ML SYRINGE SUBCUT (09:03)
[2023-10-18 09:05] LABS: Alanine Aminotransferase 59 IU/L (<35); Albumin Globulin Ratio 1.4 (1.0-2.8); Alkaline Phosphatase 72 U/L (38-126); Aspartate Aminotransferase 31 IU/L (14-36); BUN Creatinine Ratio 23.5 (6-22); Blood Urea Nitrogen 20 mg/dL (7-17); Carbon Dioxide 23 mmol/L (22-32); Chloride 106 mmol/L (98-107); Estimated Glomerular Filt Rate > 60 mL/min (>60); Globulin 2.9 g/dL (1.7-4.1); Glucose 93 mg/dL (80-110); HEMOLYSIS < 15 (0-50); Magnesium 2.3 mg/dL (1.6-2.3); Potassium 3.6 mmol/L (3.4-5.1); Sodium 139 mmol/L (137-145); Total Protein 6.9 g/dL (6.3-8.2)
[2023-10-18] MEDS: DILTIAZEM 125 MG/125 ML PIGGYBACK 10 MG IV (11:12)
[2023-10-18] MEDS: ONDANSETRON 4 MG/2 ML INJ IV (11:58)
--- NOTE | 2023-10-18 12:51 | OT.IPNOTE ---
Spoke to pt regarding OT needs and pt states she does not need any OT. Pt has a supportive partner to be able to assist with her needs. Able to give pt information for energy conservation. Spoke to pt's nurse and agreed no OT needed. Discharge OT eval orders.
--- NOTE | 2023-10-18 14:35 | PC.NURSE ---
SBP decreased to 70's (see vitals), patient resting in bed. States she had fallen asleep but it feeling much better. Denies lightheadedness or other complaint at this time. Diltiazem paused and Dr. Puga notified. Dr. Puga states to hold on diltiazem gtt at this time and continue to monitor.
--- NOTE | 2023-10-18 14:49 | PT-IP ANOTE ---
checked back with nurse regarding pt and stated that pt continue to have an elevated HR and now has low BP. Hold PT for today. will f/u tomorrow.
--- NOTE | 2023-10-18 17:04 | CM.DANOTE ---
Brief DCP Assessment Note Pt is a 77yo F here following afib with RVR/heart disease. Pt lives in [place] with partner. PCP Camilla Guidryer Medicare and Reginald SLAUGHTER reviewed EMR. Per provider in morning rounds, anticipate dc in two days, anticipate HH need. Per chart review, pt denied OT and PT held off eval today until tomorrow due to heart. FAMILY AND DIVORCE LEGAL ASSISTANT unable to meet with pt today due to triaging needs. Per chart review/RN, pt lives with partner Taqu[place] and is indep at home. Pt has dtr in [place]. Plan: home with partner when medically stable. CM team will follow closely for HH need. CM will complete comprehensive dcp assessment tomorrow, anticipate HH referral (RN/PT?). SUKHJINDER Landaverde Discharge Planning/Care Management CM Discharge Assessment Start: 10/18/23 17:03 Freq: Status: Active Protocol: Document 10/18/23 17:03 (Rec: 10/18/23 17:04 [id number]) Discharge Planning Assessment Assigned Foundry Hand SUKHJINDER Luu DPOA/Assigned Designee Name anthony Ge Contact Information [phone] Advance Directives? No Prior Living Arrangements House Household Members spouse Independent with ADL's Yes Is patient alert and oriented? Yes Whiteboard Updated in Patient Room with No name and ext. # of Foundry Hand Review Status In Process Next Review Type Continued Stay Review
--- NOTE | 2023-10-18 17:55 | PC.NURSE ---
Updated Dr. Puga on patient's recent blood pressures and heart rate. No new orders received at this time. Continue to monitor.
[2023-10-18] MEDS: SODIUM CHLORIDE 0.9% FLUSH 10 ML IV (20:11)
[2023-10-18] MEDS: DOCUSATE 100 MG CAPSULE PO (20:11)
[2023-10-19] VITALS (63 sets, daily range): BP systolic 60–110; BP diastolic 43–87; PULSE 85–144; RESP 13–34; TEMP 36.1–36.6; O2SAT 91–98
--- NOTE | 2023-10-19 06:43 | PC.NURSE ---
concrete spreader RN note Pt initially A&Ox4 then became confused overnight to situation, impulsive at times trying to get up to use commode, bed alarm on, frequent reorientation, hypotensive at times, 2+ lower leg edema, afib 80-120s mostly, HR increased to 130-140s at 0600, dilt gtt restarted at 5mg/hr, lungs clear and decreased, O2 sats decrease to mid 80s when asleep, 1L NC applied with effect, abd soft with BS, x3 small loose stools, lasix given at HS, voiding clear yellow urine, skin warm and dry, x2 periph IV sites patent, denies pain, call jeter within reach with frequent checks, benefits director socks on, meds and labs as ordered, continue to monitor
[2023-10-19 06:52] LABS: Alanine Aminotransferase 45 IU/L (<35); Albumin 3.7 g/dL (3.5-5.0); Albumin Globulin Ratio 1.4 (1.0-2.8); Alkaline Phosphatase 67 U/L (38-126); Aspartate Aminotransferase 24 IU/L (14-36); BUN Creatinine Ratio 21.6 (6-22); Bilirubin Total 0.8 mg/dL (0.2-1.3); Blood Urea Nitrogen 22 mg/dL (7-17); Calcium 9.7 mg/dL (8.4-10.2); Carbon Dioxide 27 mmol/L (22-32); Chloride 105 mmol/L (98-107); Estimated Glomerular Filt Rate 57 mL/min (>60); Globulin 2.7 g/dL (1.7-4.1); Glucose 92 mg/dL (80-110); HEMOLYSIS < 15 (0-50); Magnesium 2.2 mg/dL (1.6-2.3); Potassium 3.7 mmol/L (3.4-5.1); Sodium 138 mmol/L (137-145); Total Protein 6.4 g/dL (6.3-8.2)
[2023-10-19] MEDS: METOPROLOL IR 25 MG TABLET PO ×3 (08:00→21:10)
--- NOTE | 2023-10-19 08:13 | P.PN_ITS ---
Subjective Subjective Interval history: No real improvement with diltiazem drip and metoprolol. She is asymptomatic but has persistent tachycardia with rates of 138-150 and hypotension with a systolic of 90. She denies chest pain or dizziness. No dyspnea. Exam Vital Signs (past 8 hours): - 10/19/23 01:00 10/19/23 01:00 10/19/23 02:00 Temperature Pulse Rate 135 H Respiratory Rate 23 Blood Pressure 105/77 105/61 Pulse Oximetry 96 Oxygen Delivery Method Oxygen Flow Rate 2 10/19/23 02:00 10/19/23 03:00 10/19/23 03:01 Temperature Pulse Rate 131 H 120 H Respiratory Rate 20 28 H Blood Pressure 80/54 L Pulse Oximetry 92 98 Oxygen Delivery Method Oxygen Flow Rate 1 2 10/19/23 03:01 10/19/23 04:00 10/19/23 04:00 Temperature Pulse Rate 119 H 127 H Respiratory Rate 33 H 30 H Blood Pressure Pulse Oximetry 98 97 Oxygen Delivery Method Nasal Cannula Oxygen Flow Rate 10/19/23 04:01 10/19/23 04:01 10/19/23 05:00 Temperature 97.8 F Pulse Rate 128 H 129 H Respiratory Rate 23 20 Blood Pressure 87/60 L 90/71 Pulse Oximetry 98 94 Oxygen Delivery Method Oxygen Flow Rate 0 1 0 10/19/23 05:05 10/19/23 05:05 10/19/23 06:00 Temperature Pulse Rate 132 H 133 H Respiratory Rate 31 H 20 Blood Pressure 90/71 Pulse Oximetry 93 93 Oxygen Delivery Method Oxygen Flow Rate 10/19/23 06:00 10/19/23 07:00 10/19/23 07:00 Temperature Pulse Rate 140 H Respiratory Rate 13 Blood Pressure 96/66 99/76 88/61 L Pulse Oximetry 97 Oxygen Delivery Method Oxygen Flow Rate 0 10/19/23 07:37 10/19/23 07:37 10/19/23 07:59 Temperature Pulse Rate 133 H Respiratory Rate 19 Blood Pressure 90/64 99/76 Pulse Oximetry 97 Oxygen Delivery Method Oxygen Flow Rate 10/19/23 07:59 Temperature Pulse Rate 139 H Respiratory Rate 22 Blood Pressure Pulse Oximetry 95 Oxygen Delivery Method Oxygen Flow Rate Oxygen Delivery Method Nasal Cannula Oxygen Flow Rate 0 Objective Imaging Echo: Radiologist's impression: The patient was in atrial fibrillation with heart rates between 80-130 bpm during the exam. The left ventricle is borderline dilated. The ejection fraction is estimated to be 25-30%. Diastolic function could not be accurately assessed due to atrial fibrillation. The left atrium is severely dilated. The right ventricle is normal in size and function. The right atrium is moderately dilated. There is moderate to severe mitral regurgitation. There is mild aortic stenosis. There is mild aortic regurgitation. There is moderate tricuspid regurgitation. The right ventricular systolic pressure is estimated to be at least 38 mmHg based on an estimated right atrial pressure of 3 mm Hg. The ascending aorta is severely enlarged, 4.8 cm. Compared to the prior study dated 03/18/2023, the ejection fraction has decreased, the atria now appear dilated and the MR and TR have worsened. Labs 10/17/23 18:16 10/19/23 06:25 Labs: Laboratory Results - last 24 hr 10/17/23 10/18/23 10/19/23 23:55 08:15 06:25 Sodium 139 138 Potassium 3.6 D 3.7 Chloride 106 105 Carbon Dioxide 23 27 BUN 20 H 22 H Creatinine 0.85 1.02 Estimated GFR > 60 57 L BUN/Creatinine Ratio 23.5 H 21.6 Glucose 93 92 Calcium 10.0 9.7 Magnesium 2.3 2.2 Total Bilirubin 1.0 0.8 AST 31 24 ALT 59 H 45 H Alkaline Phosphatase 72 67 Total Protein 6.9 6.4 Albumin 4.0 3.7 Globulin 2.9 2.7 Albumin/Globulin Ratio 1.4 1.4 Nasal Screen MRSA (PCR) Not detected [facility] Medical History Lesion of right [place] kidney Hyperlipidemia Acute sinusitis Chest pain Dyspnea Fatigue Allergic rhinitis (11/01/14) Surgical History Status post hysterectomy Family History Father Congestive heart failure Hypertrophic cardiomegaly Brother Congestive heart failure Hypertrophic cardiomyopathy Sister Congestive heart failure Hypertrophic cardiomyopathy Sister Heart disease Pacemaker Social History household members: spouse Smoking Status: Never smoker second hand exposure: No alcohol intake: current substance use type: does not use Assessment & Plan Assessment & Plan narrative: Acute respiratory failure with hypoxia,?present on admission and improving. -secondary to pulmonary edema. -continue diuresis. Atrial fibrillation with RVR, present on admission and active. -Admitted patient in ICU -wean diltiazem drip as able. -continue metoprolol 25 mg po BID, try to increase to TID today (BP tolerating). -Monitor patient's electrolyte closely. Keep K > 4, Mg > 2 -Check patient's cardiac enzymes,TSH a -Check echocardiogram (H/O and normal EF 03/27). ECHO: The left ventricle is borderline dilated. The ejection fraction is estimated to be 25-30%. Diastolic function could not be accurately assessed due to atrial fibrillation. The left atrium is severely dilated. The right ventricle is normal in size and function. The right atrium is moderately dilated. There is moderate to severe mitral regurgitation. There is mild aortic stenosis. There is mild aortic regurgitation. There is moderate tricuspid regurgitation. The right ventricular systolic pressure is estimated to be at least 38 mmHg based on an estimated right atrial pressure of 3 mm Hg. The ascending aorta is severely enlarged, 4.8 cm. Compared to the prior study dated 03/18/2023, the ejection fraction has decreased, the atria now appear dilated and the MR and TR have worsened. Acute systolic heart failure. Present on admission and improving. -diuresis with Lasix as BP can tolerate. -Monitor effectiveness of diuresis. Monitor renal function. -Telemetry monitoring -Resume ACEI Elevated D-dimer. CT angiogram and Doppler ultrasound negative for DVT/PE Hypertension. Present on admission and stable. Restarted benazepril and hold Amlodipine. Added Metoprolol. Asthma. Present on admission and stable. -Albuterol as needed, budesonide and fluticasone PLAN: -stop diltiazem drip, continue metoprolol. -start amiodarone bolus and infusion -cont metoprolol -Start Eliquis BID DISPO: home around 10/20, likely HH. Time Spent With Patient Time with patient: 30 to 49 minutes with 50% spent counseling/coordinating care Quality VTE Deep Vein Thrombosis/Pulmonary Embolism Present on Admission: No
[2023-10-19] MEDS: FUROSEMIDE 40 MG/4 ML VIAL IV ×2 (08:58→20:15)
[2023-10-19] MEDS: ENOXAPARIN 40 MG/0.4 ML SYRINGE SUBCUT (09:00)
[2023-10-19] MEDS: SODIUM CHLORIDE 0.9% FLUSH 10 ML IV ×2 (09:00→20:15)
--- NOTE | 2023-10-19 09:26 | PT-IP ANOTE ---
EMR reviewed and pt started diltiazem drip this morning and having episodes of hypotention. Checked with nurse and confirmed that pt started back on diltiazem drip and that they are still working on having pt's HR under control. Hold PT at this time. will f/u.
--- NOTE | 2023-10-19 11:21 | PC.NURSE ---
Addendum entered by Viry Morrell R.N. 10/19/23 18:52: Pt reported chest discomfort 8 out of [address] Puga. EKG and labs done. Tums given and MS 2mg IV. Dr. Puga at bedside. Unsuccessful 2nd IV start. Pt states chest pain 3 out of 10; pt states it's more pressure now. It came on so suddenly, it scared me. Addendum entered by Viry Morrell R.N. 10/19/23 17:16: Amiodarone bolus and gtt started. Pt's at bedside Addendum entered by Viry Morrell R.N. 10/19/23 13:36: Pt up in chair x1 hour for lunch. HR 140's and SBP 70's. Dr. Puga notified; Pt back in bed, bath done. At this time: BP 100/63, HR 130-150's. Original Note: pt verbalized her dog dying 3 days ago. Pt forgetful, asking about medications. Dilt gtt 5mg/hr 0800 with HR 140's and SBP 80's. Dr. Puga notified. gtt increased to 10mg/hr. Metoprolol PO given. At this time, HR 110's, BP 97/55. Cardizem gtt off, Lasix IV given.
[2023-10-19] MEDS: POTASSIUM CHLORIDE 20 MEQ TAB 40 MEQ PO (15:00)
--- NOTE | 2023-10-19 15:44 | PT-IP ANOTE ---
pt continues to be not appropriate for PT eval. Per nurse, still has high HR and low BP. informed hospitalist and nurse that PT order will be d/c and will just await new orders if pt is medically stable for PT eval. hospitalist agreed.
--- NOTE | 2023-10-19 16:23 | CM.DPNOTE ---
DCP Note ELECTRICAL LOGGING ENGINEER reviewed EMR. Per provider in morning rounds, likely here another few days. Likely HH candidate. PT held eval today due to high HR and low BP. Per RN note, pt dog recently and pt having some confusion/forgetfulness about medications. This ELECTRICAL LOGGING ENGINEER was unable to meet with pt today due to triaging needs. CM team will continue to follow closely for CM needs at ct. Plan: r/o HH closer to dc/when pt is stable enough for PT eval to provide their recommendations. CM team will follow closely. Likely home with spouse support. SUKHJINDER Landaverde
[2023-10-19] MEDS: AMIODARONE 150 MG/100 ML 600 MG IV (16:51)
[2023-10-19] MEDS: AMIODARONE 360 MG/200 ML PIGGYBACK 33.333 MG IV (17:13)
[2023-10-19] MEDS: MORPHINE 2 MG/ML INJ IV (18:40)
[2023-10-19] MEDS: CALCIUM CARBONATE 500 MG TAB 1000 MG PO (18:40)
[2023-10-19 19:03] LABS: Troponin I 0.014 ng/mL (0.01-0.034)
[2023-10-19] MEDS: APIXABAN 5 MG TABLET PO (20:15)
[2023-10-19] MEDS: AMIODARONE 360 MG/200 ML PIGGYBACK 16.7 MG IV (22:51)
[2023-10-20] VITALS (34 sets, daily range): BP systolic 80–130; BP diastolic 53–95; PULSE 63–139; RESP 16–47; TEMP 36.2–36.6; O2SAT 91–98
[2023-10-20 04:10] LABS: Alanine Aminotransferase 44 IU/L (<35); Albumin 3.7 g/dL (3.5-5.0); Albumin Globulin Ratio 1.3 (1.0-2.8); Alkaline Phosphatase 69 U/L (38-126); Aspartate Aminotransferase 27 IU/L (14-36); BUN Creatinine Ratio 26.7 (6-22); Bilirubin Total 0.7 mg/dL (0.2-1.3); Blood Urea Nitrogen 27 mg/dL (7-17); Calcium 9.8 mg/dL (8.4-10.2); Carbon Dioxide 24 mmol/L (22-32); Chloride 104 mmol/L (98-107); Estimated Glomerular Filt Rate 57 mL/min (>60); Globulin 2.8 g/dL (1.7-4.1); Glucose 101 mg/dL (80-110); HEMOLYSIS < 15 (0-50); Potassium 3.6 mmol/L (3.4-5.1); Sodium 137 mmol/L (137-145); Total Protein 6.5 g/dL (6.3-8.2)
--- NOTE | 2023-10-20 07:59 | PM.PN.1 ---
Subjective Subjective Interval history: Overview: The patient had been on a diltiazem drip for 2 days with minimal response while having up titrated metoprolol dosing orally. She was then started on an amiodarone infusion after a bolus on October 19 late afternoon. She initially showed some prominence better rate control however this morning she is again tachycardic at 1:30 a.m. and feel short of breath. She remains in atrial fibrillation. She denies any chest pain, she did have some chest pain and epigastric pain yesterday afternoon. I discussed the plan of giving amiodarone several more hours to see if she improves and diuresis this morning. We will also add a chest x-ray. Anticipate probable transfer to [facility] for SHELLIE directed cardioversion if she fails to improve. She understands this potential plan. Exam Vital Signs (past 8 hours): - 10/20/23 00:00 10/20/23 00:00 10/20/23 00:28 Temperature Pulse Rate 106 H Respiratory Rate 26 H Blood Pressure 111/74 Pulse Oximetry 92 Oxygen Delivery Method Room Air 10/20/23 00:28 10/20/23 01:00 10/20/23 02:00 Temperature Pulse Rate 115 H 108 H 110 H Respiratory Rate 25 H 21 17 Blood Pressure Pulse Oximetry 91 92 Oxygen Delivery Method 10/20/23 03:00 10/20/23 03:02 10/20/23 03:02 Temperature Pulse Rate 104 H 112 H Respiratory Rate 25 H 19 Blood Pressure 104/68 Pulse Oximetry 95 95 Oxygen Delivery Method 10/20/23 04:00 10/20/23 04:00 Temperature 97.2 F L Pulse Rate 108 H Respiratory Rate 19 Blood Pressure Pulse Oximetry 95 Oxygen Delivery Method Room Air Oxygen Delivery Method Room Air Oxygen Flow Rate 0 Narrative Exam Narrative: NAD, fluent speech, not on oxygen. Lungs are clear, regular rate and effort. Heart is irregular without murmur, tachycardic. Abdomen is non-distended. Extremities are free of edema. 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 Hyperlipidemia Acute sinusitis Chest pain Dyspnea Fatigue Allergic rhinitis (11/01/14) Surgical History Status post hysterectomy Family History Father Congestive heart failure Hypertrophic cardiomegaly Brother Congestive heart failure Hypertrophic cardiomyopathy Sister Congestive heart failure Hypertrophic cardiomyopathy Sister Heart disease Pacemaker Social History household members: spouse Smoking Status: Never smoker second hand exposure: No alcohol intake: current substance use type: does not use Assessment & Plan Assessment & Plan narrative: Acute respiratory failure with hypoxia,?present on admission and resolved. -secondary to pulmonary edema. -continue diuresis. Off O2. Atrial fibrillation with RVR, present on admission and active. -she is failed to improve despite being on diltiazem drip for 2 days with increased dose oral metoprolol for rate control. The patient was started on Eliquis on October 19 and placed in an amiodarone bolus and infusion. She initially had promising rate control but is tachycardic again today. If she fails to improve substantially today we will likely proceed with a transfer to [facility] for SHELLIE directed cardioversion. She also has a newly diagnosed cardiomyopathy which may relate to her tachycardia. ECHO: The left ventricle is borderline dilated. The ejection fraction is estimated to be 25-30%. Diastolic function could not be accurately assessed due to atrial fibrillation. The left atrium is severely dilated. The right ventricle is normal in size and function. The right atrium is moderately dilated. There is moderate to severe mitral regurgitation. There is mild aortic stenosis. There is mild aortic regurgitation. There is moderate tricuspid regurgitation. The right ventricular systolic pressure is estimated to be at least 38 mmHg based on an estimated right atrial pressure of 3 mm Hg. The ascending aorta is severely enlarged, 4.8 cm. Compared to the prior study dated 03/18/2023, the ejection fraction has decreased, the atria now appear dilated and the MR and TR have worsened. Acute systolic heart failure. Present on admission and improving. -diuresis with Lasix as BP can tolerate. -Monitor effectiveness of diuresis. Monitor renal function. -Telemetry monitoring -Resume ACEI Elevated D-dimer. CT angiogram and Doppler ultrasound negative for DVT/PE Hypertension. Present on admission and stable. Restarted benazepril and hold Amlodipine. Added Metoprolol. Asthma. Present on admission and stable. -Albuterol as needed, budesonide and fluticasone PLAN: -continue amiodarone infusion and Eliquis. -continue oral metoprolol at 50 b.i.d.. -anticipate possible transfer for cardioversion if she fails to improve substantially today. DISPO: Uncertain pending her progress.. Time Spent With Patient Time with patient: 30 to 49 minutes with 50% spent counseling/coordinating care Quality VTE Deep Vein Thrombosis/Pulmonary Embolism Present on Admission: No
[2023-10-20] MEDS: METOPROLOL IR 25 MG TABLET PO (08:14)
[2023-10-20] MEDS: FUROSEMIDE 40 MG/4 ML VIAL IV ×2 (08:14→21:46)
[2023-10-20] MEDS: lisinopriL 20 MG TABLET 40 MG PO (08:14)
[2023-10-20] MEDS: APIXABAN 5 MG TABLET PO ×2 (08:15→21:46)
[2023-10-20] MEDS: SODIUM CHLORIDE 0.9% FLUSH 10 ML IV ×2 (08:19→21:46)
--- NOTE | 2023-10-20 08:46 | DI.RAD.S_ITS ---
PROCEDURE: XR CHEST 1V INDICATIONS: dyspnea TECHNIQUE: One view of the chest was acquired. COMPARISON: [facility], CR, XR CHEST 1V, 10/17/2023, 17:50. FINDINGS: Surgical changes and devices: None. Lungs and pleura: There is slightly improved aeration at the right lung base when compared with the prior film dated October 17, 2023. There is likely a trace left pleural effusion also decreased in size from the prior study. No pneumothorax. Consolidative radiopacities persist at the right lung base. Mediastinum: Mediastinal contours appear normal. Heart size is normal. Bones and chest wall: No suspicious bony lesions. Overlying soft tissues appear unremarkable. IMPRESSION: Partial resolution of the bilateral pleural effusions when compared with the prior study from October 17, 2023. Dictated by: Kelsea Kerns M.D. on 10/20/2023 at 9:23 Approved by: Kelsea Kerns M.D. on 10/20/2023 at 9:25
[2023-10-20] MEDS: METOPROLOL IR 50 MG TABLET PO ×2 (09:28→21:46)
[2023-10-20] MEDS: BUDESONIDE 3 MG CAP 9 MG PO (10:10)
[2023-10-20] MEDS: AMIODARONE 180 MG/100 ML PIGGYBACK 16.7 MG IV ×3 (10:25→17:24)
[2023-10-20] MEDS: POTASSIUM CHLORIDE 20 MEQ TAB 40 MEQ PO (10:25)
[2023-10-20] MEDS: AMIODARONE 360 MG/200 ML PIGGYBACK 16.7 MG IV (22:20)
[2023-10-21] VITALS (33 sets, daily range): BP systolic 77–144; BP diastolic 58–83; PULSE 48–115; RESP 18–20; TEMP 36–36.8; O2SAT 70–99
[2023-10-21] MEDS: lisinopriL 20 MG TABLET 40 MG PO (08:29)
[2023-10-21] MEDS: APIXABAN 5 MG TABLET PO ×2 (08:29→20:11)
[2023-10-21] MEDS: FUROSEMIDE 40 MG/4 ML VIAL IV ×2 (08:29→20:11)
[2023-10-21] MEDS: METOPROLOL IR 50 MG TABLET PO ×2 (08:30→20:11)
[2023-10-21] MEDS: BUDESONIDE 3 MG CAP 9 MG PO (08:30)
[2023-10-21] MEDS: SODIUM CHLORIDE 0.9% FLUSH 10 ML IV ×2 (09:11→20:11)
[2023-10-21] MEDS: AMIODARONE 360 MG/200 ML PIGGYBACK 16.7 MG IV ×2 (10:15→22:04)
--- NOTE | 2023-10-21 10:44 | PM.PN.1 ---
Subjective Subjective Interval history: She is a little more coherent today but very paranoid and still declining oral medications. She does note that she is at the hospital. She is talking a lot less nonsense compared to yesterday. Her also believes she is improved but paranoid. Serial CTs including a 3rd very delayed CT remained negative, very much doubt stroke at this point. Her ultimate discharge plan will depend on her progress with her encephalopathy which does appear to be improving significantly on a day-to-day basis. Exam Vital Signs (past 8 hours): - 10/21/23 03:00 10/21/23 03:01 10/21/23 03:01 Temperature Pulse Rate 61 82 Respiratory Rate Blood Pressure 77/60 L Pulse Oximetry 94 96 Oxygen Delivery Method 10/21/23 03:18 10/21/23 03:20 10/21/23 03:20 Temperature Pulse Rate 101 H 81 Respiratory Rate Blood Pressure 79/62 L Pulse Oximetry 94 97 Oxygen Delivery Method 10/21/23 04:00 10/21/23 04:00 10/21/23 04:02 Temperature Pulse Rate 96 H Respiratory Rate Blood Pressure Pulse Oximetry 88 L 99 Oxygen Delivery Method Room Air 10/21/23 04:02 10/21/23 05:00 10/21/23 05:01 Temperature Pulse Rate 84 Respiratory Rate Blood Pressure 105/82 96/65 Pulse Oximetry 94 Oxygen Delivery Method 10/21/23 05:01 10/21/23 05:41 10/21/23 06:00 Temperature Pulse Rate 54 L 98 H 84 Respiratory Rate 18 Blood Pressure 106/79 Pulse Oximetry 95 99 94 Oxygen Delivery Method 10/21/23 06:00 10/21/23 06:48 10/21/23 07:00 Temperature Pulse Rate 83 79 Respiratory Rate Blood Pressure 106/79 Pulse Oximetry 97 97 Oxygen Delivery Method 10/21/23 07:00 10/21/23 08:00 10/21/23 08:00 Temperature 98.3 F Pulse Rate 107 H Respiratory Rate Blood Pressure 113/73 Pulse Oximetry 97 Oxygen Delivery Method 10/21/23 08:00 10/21/23 08:25 10/21/23 08:27 Temperature Pulse Rate 115 H Respiratory Rate Blood Pressure 144/83 H Pulse Oximetry Oxygen Delivery Method Room Air 10/21/23 08:29 Temperature Pulse Rate Respiratory Rate Blood Pressure 144/83 H Pulse Oximetry Oxygen Delivery Method Oxygen Delivery Method Room Air Oxygen Flow Rate 0 Narrative Exam Narrative: NAD, oriented to place. She is having some paranoid statements. Lungs are clear with normal effort. Heart is irregular, rate controlled. Abdomen is soft, non tender. Extremities are free of edema. Legs are wrapped. She is extensive ecchymoses over her arms and right cheek. She moves arms and legs normally, no facial droop. Cranial nerves otherwise grossly intact. Objective Labs 10/17/23 18:16 10/20/23 03:16 [facility] Medical History Lesion of right [place] kidney Hyperlipidemia Acute sinusitis Chest pain Dyspnea Fatigue Allergic rhinitis (11/01/14) Surgical History Status post hysterectomy Family History Father Congestive heart failure Hypertrophic cardiomegaly Brother Congestive heart failure Hypertrophic cardiomyopathy Sister Congestive heart failure Hypertrophic cardiomyopathy Sister Heart disease Pacemaker Social History household members: spouse Smoking Status: Never smoker second hand exposure: No alcohol intake: current substance use type: does not use Assessment & Plan Assessment & Plan narrative: Acute respiratory failure with hypoxia,?present on admission and resolved. -secondary to pulmonary edema. -improved with diuresis Atrial fibrillation with RVR, present on admission and active. -she is failed to improve despite being on diltiazem drip for 2 days with increased dose oral metoprolol for rate control. The patient was started on Eliquis on October 19 and placed in an amiodarone bolus and infusion. She has had intermittent rate control. A transfer was requested to [facility] for consideration of SHELLIE cardioversion on October 20. No beds were available. I did contact the supervisor residential on October 21 and reiterated that request. The meantime we will continue IV load with a conversion to oral amiodarone likely later today. We will also advance her activities see what her heart rate is at rest and with exertion. We will increase her metoprolol by adding 25 mg this afternoon in between the 50 b.i.d. ECHO: The left ventricle is borderline dilated. The ejection fraction is estimated to be 25-30%. Diastolic function could not be accurately assessed due to atrial fibrillation. The left atrium is severely dilated. The right ventricle is normal in size and function. The right atrium is moderately dilated. There is moderate to severe mitral regurgitation. There is mild aortic stenosis. There is mild aortic regurgitation. There is moderate tricuspid regurgitation. The right ventricular systolic pressure is estimated to be at least 38 mmHg based on an estimated right atrial pressure of 3 mm Hg. The ascending aorta is severely enlarged, 4.8 cm. Compared to the prior study dated 03/18/2023, the ejection fraction has decreased, the atria now appear dilated and the MR and TR have worsened. Acute systolic heart failure. Present on admission and improving. -diuresis with Lasix as BP can tolerate. -Monitor effectiveness of diuresis. Monitor renal function. -Telemetry monitoring -Resume ACEI when able. Currently using beta blockers and had hypotension and October 20. We will likely add Hang within a day or 2. Elevated D-dimer. CT angiogram and Doppler ultrasound negative for DVT/PE Hypertension. Present on admission and stable. Restarted benazepril and hold Amlodipine. Added Metoprolol. Asthma. Present on admission and stable. -Albuterol as needed, budesonide and fluticasone PLAN: -continue amiodarone infusion and Eliquis. Convert to oral later today. -continue oral metoprolol at 50 b.i.d. an additional 25 mg dose this afternoon. Transferred to [facility], awaiting a bed. Case was discussed with Dr. Mina of [facility] who suggested probable need for SHELLIE cardioversion or other management options. Time Spent With Patient Time with patient: 30 to 49 minutes with 50% spent counseling/coordinating care Quality VTE Deep Vein Thrombosis/Pulmonary Embolism Present on Admission: No
--- NOTE | 2023-10-21 12:15 | DIET.CONS2 ---
Dietary Inpatient Consultation Note Admission Date: 10/17/2023 22:01 Pt on heart healthy diet, RD discussed with nursing, pt requesting clam chowder and grilled cheese sandwich. Allowing clam chowder and 1/2 grilled cheese as courtesy. Please continue HH diet for remaining meals. Diet: 10/18/23 Breakfast Heart Healthy Diet Diet Modifications: Nutrition Percent Meal Consumed 25% 10/20/23 10:00 Percent Meal Consumed 100% 10/19/23 14:17 Electronically Signed by: Doretha Rivas 10/21/23 12:15 Clinical Dietitian [address] [id number]
[2023-10-22] VITALS (9 sets, daily range): BP systolic 109–115; BP diastolic 72–77; PULSE 40–113; RESP 17–20; TEMP 36.1–36.9; O2SAT 81–99
[2023-10-22] MEDS: APIXABAN 5 MG TABLET PO (08:21)
[2023-10-22] MEDS: FUROSEMIDE 40 MG/4 ML VIAL IV (08:21)
[2023-10-22] MEDS: lisinopriL 20 MG TABLET 40 MG PO (08:21)
[2023-10-22] MEDS: DOCUSATE 100 MG CAPSULE PO (08:21)
[2023-10-22] MEDS: METOPROLOL IR 50 MG TABLET PO (08:21)
[2023-10-22] MEDS: AMIODARONE 200 MG TABLET 400 MG PO (08:21)
[2023-10-22] MEDS: SODIUM CHLORIDE 0.9% FLUSH 10 ML IV (08:22)
[2023-10-22] MEDS: BUDESONIDE 3 MG CAP 9 MG PO (09:06)
--- NOTE | 2023-10-22 11:10 | PM.DS.1 ---
History of Present Illness History of Present Illness Chief complaint: covid+, rapid heartbeat, leg swelling,snt by [place] Narrative: 77 years old female with history of hypertension, COPD, hypertrophic cardiomyopathy, presented to the ER with 2 weeks of shortness of breath, dry cough, fatigue, poor sleep dizziness, lightheadedness and bilateral lower extremities edema. She was diagnosed with COVID-19 on 10/03/2023 but reported her symptoms were preceding COVID-19. Never been diagnosed with atrial fibrillation before. Denies any cardiac workup in the past. Denies any chest pain, fever, nausea, vomiting, abdominal pain, diarrhea or dysuria. She was seen earlier today in the clinic and was referred to the ED for further evaluation after she was found to have irregular heartbeats and CHF symptoms. Initial laboratory shows WBC 8.4, INR 1.1, D-dimer 1353, sodium 135, creatinine 0.8, glucose 103, lactic acid 1, AST 74, ALT 72, total bilirubin 1.2, troponin 0.02, BNP 3410, ultrasound lower extremity was negative for DVT, CT angiogram of the chest was negative for PE, large right pleural effusions with adjacent atelectasis. In the ER she was found to have atrial fibrillation with RVR and was started on Cardizem drip. She also was given Lasix 60 mg IV. Discharge Providers Provider Date of admission: 10/17/23 22:01 Discharge Date: 10/22/23 Primary care physician: Camilla Mosley MD Consults: 10/17/23 22:09 Consult to Discharge Planning Routine Comment: Consult to Occupational Therapy Evaluate & Treat Comment: Physician Instructions: Evaluate and treat Consult to Physical Therapy Evaluate & Treat Comment: Physician Instructions: Evaluate and Treat Discharge provider: Devin Johns, Summary Hospital Course Discharge Diagnosis: Acute respiratory failure with hypoxia,?present on admission and resolved. -secondary to pulmonary edema. -improved with diuresis Atrial fibrillation with RVR, present on admission and active. -initially failed to improve despite being on diltiazem drip for 2 days with increased dose oral metoprolol for rate control. The patient was started on Eliquis on October 19 and placed in an amiodarone bolus and infusion. -able to wean from amio drip to po amio and discharged on 400mg BID x1 week, then 200mg BID x1 then 200mg daily -urgent cardiology referral to [facility] faxed -discharged on eliquis and oral metoprolol XL 100mg daily ECHO: The left ventricle is borderline dilated. The ejection fraction is estimated to be 25-30%. Diastolic function could not be accurately assessed due to atrial fibrillation. The left atrium is severely dilated. The right ventricle is normal in size and function. The right atrium is moderately dilated. There is moderate to severe mitral regurgitation. There is mild aortic stenosis. There is mild aortic regurgitation. There is moderate tricuspid regurgitation. The right ventricular systolic pressure is estimated to be at least 38 mmHg based on an estimated right atrial pressure of 3 mm Hg. The ascending aorta is severely enlarged, 4.8 cm. Compared to the prior study dated 03/18/2023, the ejection fraction has decreased, the atria now appear dilated and the MR and TR have worsened. Acute systolic heart failure. Present on admission and improving. -echo as above -diuresis given with Lasix as BP can tolerate. -Monitor effectiveness of diuresis. Monitor renal function. -Telemetry monitoring -resumed SANDRO and BB on discharge Elevated D-dimer. CT angiogram and Doppler ultrasound negative for DVT/PE Hypertension. Present on admission and stable. Restarted benazepril and hold Amlodipine. Added Metoprolol. Asthma. Present on admission and stable. -Albuterol as needed, budesonide and fluticasone Hospital Course: Admitted for A-fib RVR which required dilt drip then amio drip plus po metoprolol. Took over 24 hours on the amio drip to finally convert to NSR so was then converted to po amio with taper. Resumed her home SANDRO and put on BB and eliquis. Faxed urgent referral to [facility] cardiology [facility] for follow-up. Exam Vital Signs (past 8 hours): - 10/22/23 03:20 10/22/23 03:21 10/22/23 03:21 Temperature Pulse Rate 94 H 106 H Respiratory Rate Blood Pressure 111/77 Pulse Oximetry 95 99 Oxygen Delivery Method 10/22/23 03:32 10/22/23 04:00 10/22/23 07:00 Temperature 97.0 F L 98.5 F Pulse Rate 113 H Respiratory Rate 20 Blood Pressure 111/77 Pulse Oximetry 98 Oxygen Delivery Method Room Air 10/22/23 08:00 10/22/23 08:52 10/22/23 08:54 Temperature Pulse Rate 59 L 40 L Respiratory Rate Blood Pressure Pulse Oximetry 81 L 98 Oxygen Delivery Method Room Air 10/22/23 08:54 Temperature 97.8 F Pulse Rate Respiratory Rate 17 Blood Pressure 109/72 Pulse Oximetry Oxygen Delivery Method Oxygen Delivery Method Room Air Oxygen Flow Rate 0 Narrative Exam Narrative: NAD, oriented to place. Lungs are clear with normal effort. Heart is irregular, rate controlled. Abdomen is soft, non tender. Extremities are free of edema. Legs are wrapped. She is extensive ecchymoses over her arms and right cheek. She moves arms and legs normally, no facial droop. Cranial nerves otherwise grossly intact. Objective Labs 10/17/23 18:16 10/22/23 10:38 [facility] Medical History Lesion of right [place] kidney Hyperlipidemia Acute sinusitis Chest pain Dyspnea Fatigue Allergic rhinitis (11/01/14) Surgical History Status post hysterectomy Family History Father Congestive heart failure Hypertrophic cardiomegaly Brother Congestive heart failure Hypertrophic cardiomyopathy Sister Congestive heart failure Hypertrophic cardiomyopathy Sister Heart disease Pacemaker Social History household members: spouse Smoking Status: Never smoker second hand exposure: No alcohol intake: current substance use type: does not use Discharge Plan Discharge Plan Patient Disposition: Home Provider Discharge Comment: You were found to have atrial fibrillation and low heart function. 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 I've started you on a few new medications for your heart. Follow-up with your PCP soon. Discharge orders & Medications Prescriptions: New amiodarone 200 mg Tablet See Rx Instructions .ROUTE .COMPLEX Qty: 60 0RF Rx Instructions: take 2 tabs (400mg) twice daily for 1 week, then 1 tab twice daily for 1 week then 1 tab once daily after Eliquis 5 mg Tablet 5 mg PO BID Qty: 60 0RF metoprolol succinate 100 mg tablet extended release 24 hr 100 mg PO DAILY Qty: 30 0RF Continued benazepril 40 mg tablet 40 mg PO DAILY amlodipine 10 mg tablet 10 mg PO DAILY albuterol sulfate 90 mcg/actuation HFA aerosol inhaler 2 puff INHALATION Q4-6H PRN (Reason: shortness of breath or wheezing) Qty: 18 2RF fluticasone propionate [Flonase Allergy Relief] 50 mcg/actuation spray,suspension 1 spray Intranasal BID PRN (Reason: allergy symptoms) Qty: 1 1RF atorvastatin 10 mg tablet 10 mg PO DAILY Follow up/Referrals: Camilla Mosley MD [Primary Care Provider] - 3-5 Days Other Ambulatory Orders: Referral to: (Schedule) Timeframe: 1 Week Location: Outside Services Ordered By: Devin Johns Visit Report/Discharge Packet Stand Alone Forms: Patient Portal/API, Stroke Signs & Symptoms Discharge Data Primary Care Provider: aCmilla Mosley Quality VTE Deep Vein Thrombosis/Pulmonary Embolism Present on Admission: No
[2023-10-22 11:36] LABS: BUN Creatinine Ratio 23.9 (6-22); Blood Urea Nitrogen 26 mg/dL (7-17); Calcium 9.9 mg/dL (8.4-10.2); Carbon Dioxide 26 mmol/L (22-32); Chloride 102 mmol/L (98-107); Estimated Glomerular Filt Rate 52 mL/min (>60); Glucose 111 mg/dL (80-110); HEMOLYSIS 18 (0-50); Potassium 3.4 mmol/L (3.4-5.1); Sodium 138 mmol/L (137-145)
== END 2023-10-22 11:15 | disposition home or self-care (01) | DRG 291 ==
LOC: ED 21:52 → AC 22:02 → ICU 22:46
PROVIDERS: Emergency Medicine; Hospitalist; Admitting Provider Internal Medicine; Emergency Provider Emergency Medicine; PCP Internal Medicine; Referring Provider Emergency Medicine; Visit Provider Internal Medicine
DX: I11.0 Hypertensive heart disease with heart failure (principal); I50.33 Acute on chronic diastolic (congestive) heart failure; J96.01 Acute respiratory failure with hypoxia; I48.91 Unspecified atrial fibrillation; J45.909 Unspecified asthma, uncomplicated; R79.1 Abnormal coagulation profile; E78.5 Hyperlipidemia, unspecified; Z86.16 Personal history of COVID-19
CPT/HCPCS: 0241U; 36415; 71045; 71275; 80048; 80053; 80061; 81001; 83605; 83735; 83880; 84443; 84484; 85025; 85379; 85610; 87797; 93005; 93010; 93306; 93970; 96365; 96375; 96376; 99284; 99291; J0282; J1650; J1940; J2270; J2405; Q9967

== ENCOUNTER → 2023-12-06 07:42 | Outpatient (CLI) | payer MEDICARE, OTHER, SELFPAY ==
[2023-10-17 22:29] VITALS: BMI 29.6
[2023-12-06 09:18] LABS: BUN Creatinine Ratio 27.4 (6-22); Blood Urea Nitrogen 31 mg/dL (7-17); Calcium 9.9 mg/dL (8.4-10.2); Carbon Dioxide 25 mmol/L (22-32); Chloride 108 mmol/L (98-107); Estimated Glomerular Filt Rate 50 mL/min (>60); Glucose 96 mg/dL (80-110); HEMOLYSIS < 15 (0-50); Potassium 3.7 mmol/L (3.4-5.1); Sodium 139 mmol/L (137-145)
== END ==
LOC: LAB 07:43
PROVIDERS: PCP Internal Medicine; Referring Provider Urology; Visit Provider Urology
DX: N28.9 Disorder of kidney and ureter, unspecified (principal)
CPT/HCPCS: 36415; 80048

== ENCOUNTER → 2023-12-09 11:35 | Outpatient (CLI) | payer MEDICARE, OTHER, SELFPAY ==
[2023-10-17 22:29] VITALS: BMI 29.6
--- NOTE | 2023-12-09 11:36 | DI.CT.S_ITS ---
PROCEDURE: CT ABDOMEN RENAL PROTOCOL INDICATIONS: Evaluate incidentally found right renal mass TECHNIQUE: Optional 5 mm thick noncontrast images acquired from the diaphragm to the iliac crests. After the administration of intravenous contrast, 5 mm thick images again acquired from the diaphragm to the iliac crests in the arterial and urographic phases. 5 mm thick coronal and sagittal reformats were then acquired. For radiation dose reduction, the following was used: automated exposure control, adjustment of mA and/or kV according to patient size. COMPARISON: [facility], CT, CT ABDOMEN PELVIS W CON, 08/25/2023, 23:45. [facility], CT, CT ANGIO CHEST PE PROTOCOL, 10/17/2023, 20:08. FINDINGS: Image quality: Diagnostic. Kidneys and Ureters: Enhancing, exophytic right renal mass measuring 2.4 x 3.3 x 3.4 centimeters. The mass demonstrates heterogeneous attenuation, favoring necrosis. The mass does not extend beyond the perirenal fascia. Renal vein is widely patent. 1 centimeter left angiomyolipoma. Additional bilateral benign renal cysts which do not require follow-up per consensus guidelines. OTHER: Lower chest: Cardiomegaly. Trace pleural effusions. Liver: No solid mass. Segment 4 hepatic cyst, which is simple and benign. Gallbladder: Gallbladder sludge versus small stones. No wall thickening or pericholecystic edema to suggest acute cholecystitis. Biliary ducts: No biliary dilation. Pancreas: No ductal dilation. Spleen: Size is within normal limits. Sequela prior infarct, with decreased volume along the anterior margin. Adrenal Glands: No adrenal nodules. Stomach and Bowel: Normal colonic caliber, without significant wall thickening. Peritoneum: No abnormal intraperitoneal fluid. No free air. Ventral Wall: No hernia. Abdominal Nodes: No retroperitoneal or mesenteric adenopathy by size criteria. Vessels: Aorta and inferior vena cava are normal in size. Bones: No aggressive osseous abnormality. L3 vertebral hemangioma. Degenerative disc disease of the lumbar spine. IMPRESSION: Enhancing, exophytic right renal mass measuring 2.3 x 3.3 x 3.4 centimeters, which represents renal cell carcinoma until proven otherwise. No invasion of the perirenal fascia. No retroperitoneal adenopathy. No renal vein invasion. Trace pleural effusions. Dictated by: Cosme Hinkle M.D. on 12/09/2023 at 13:03 Approved by: Cosme Hinkle M.D. on 12/09/2023 at 13:10
== END ==
LOC: CT 11:36
PROVIDERS: PCP Internal Medicine; Referring Provider Urology; Visit Provider Urology
DX: C64.1 Malignant neoplasm of right kidney, except renal pelvis (principal); N28.89 Other specified disorders of kidney and ureter; N28.1 Cyst of kidney, acquired; K76.89 Other specified diseases of liver; I51.7 Cardiomegaly
CPT/HCPCS: 74170; Q9967

== ENCOUNTER → 2023-12-28 10:15 | Outpatient (CLI) | payer MEDICARE, OTHER, SELFPAY ==
[2023-10-17 22:29] VITALS: BMI 29.6
--- NOTE | 2023-12-28 22:41 | DI.NM.S_ITS ---
DATE OF SERVICE: 12/28/2023 PROCEDURE PERFORMED: Pharmacologic vasodilator stress and rest myocardial perfusion imaging with gating to assess ejection fraction and regional wall motion. ORDERING PROVIDER: Marcia Sawyer M.D. INDICATIONS: The patient is a 77-year-old female with a recent COVID infection with associated atrial fibrillation and heart failure with a significant decline in left ventricular systolic function. CARDIAC STRESS: Per protocol, 0.4 mg of regadenoson was infused with a normal hemodynamic response and mild dyspnea and nausea but no chest discomfort. Her resting ECG showed sinus rhythm with low QRS voltage, but normal ST segments. There were no significant ST-segment shifts with stress. There were no arrhythmias. Per protocol, 26.4 millicuries of technetium-99m Myoview was injected and she was imaged 15 minutes later using a gated SPECT acquisition protocol. Earlier in the day while at rest, she had been injected with 12.7 millicuries of technetium-99m Myoview and was imaged 15 minutes later, again using a gated SPECT acquisition protocol. FINDINGS: 1. Raw data: There is marginal image quality with prominent breast shadows noted that clearly produce significant attenuation, particularly on the resting images. While the lung/heart ratio is elevated at 0.59, this is likely due to the attenuation of the cardiac silhouette from the breast shadow and thus is nonspecific. The TID ratio is normal at 0.91. 2. Quantitative gated SPECT: The post-stress ejection fraction is estimated at 62% without any focal wall motion abnormality although with a slight dyssynchronous contraction pattern. The resting ejection fraction is estimated at 53%, although image quality is fairly poor. The resting end-diastolic volume is borderline increased at 117 mL. 3. Myocardial perfusion imaging: Post-stress supine images show a fairly normal myocardial perfusion pattern without any significant perfusion defects, supported by normal perfusion imaging in the prone position. The resting images are somewhat corrupted by the attenuation artifact with globally reduced counts but there are no areas of significant improvement to suggest a reversible perfusion defect. IMPRESSION: 1. Normal myocardial perfusion study. 2. No evidence of myocardial ischemia or previous myocardial infarction. 3. Normal left ventricular systolic function without focal wall motion abnormality and borderline increased left ventricular volumes. While the lung/heart ratio is mildly elevated, which can be a sign of pulmonary congestion, it is nonspecific given the poor image quality, and clinical correlation is needed. 4. No angina or ECG evidence of ischemia with pharmacologic vasodilator stress. She was in sinus rhythm without any arrhythmias throughout the study. ChaudhryKailey - FAYE/kermit/JULIA doc#: [id number]/job#: [id number] dd: 12/28/2023 17:00:00 dt: 12/28/2023 22:15:00 DICTATING MD/COPIES TO: Donald Delgado MD; Marcia Sawyer M.D. COPIES MNE: JO;
== END ==
LOC: NUCM 10:16
PROVIDERS: PCP Internal Medicine; Referring Provider Internal Medicine Cardiovascular Disease; Visit Provider Internal Medicine Cardiovascular Disease
DX: I50.20 Unspecified systolic (congestive) heart failure (principal); I11.0 Hypertensive heart disease with heart failure
CPT/HCPCS: 78452; 93017; A9502; J2785

== ENCOUNTER → 2024-03-06 12:41 | Outpatient (CLI) | payer MEDICARE, OTHER, SELFPAY ==
[2023-10-17 22:29] VITALS: BMI 29.6
--- NOTE | 2024-03-06 12:43 | DI.CT.S_ITS ---
PROCEDURE: CT ABDOMEN RENAL PROTOCOL INDICATIONS: Renal mass TECHNIQUE: Optional 5 mm thick noncontrast images acquired from the diaphragm to the iliac crests. After the administration of intravenous contrast, 5 mm thick images again acquired from the diaphragm to the iliac crests in the arterial and urographic phases. 5 mm thick coronal and sagittal reformats were then acquired. For radiation dose reduction, the following was used: automated exposure control, adjustment of mA and/or kV according to patient size. COMPARISON: [facility], CT, CT ABDOMEN PELVIS W CON, 08/25/2023, 23:45. [facility], CT, CT ABDOMEN RENAL PROTOCOL, 12/09/2023, 11:49. FINDINGS: Image quality: Diagnostic. Kidneys and Ureters: No hydronephrosis. No ureteral filling defect on the delayed images within the proximal portions of the opacified ureters. No kidney stones. Several small low-density renal cysts bilaterally are similar. Mid right kidney partially exophytic mass measuring 3.2 x 2.9 cm, (4/37), 2.9 x 2.9 cm, and more remotely 3.1 x 2.9 cm on 08/25/2023. Not felt to be significantly changed in size. Lesion is solid and enhancing. OTHER: Lower chest: Unremarkable. Liver: No solid mass. Benign cyst in the right lobe of the liver. Gallbladder: No radiopaque gallstones or wall thickening. Biliary ducts: No biliary dilation. Pancreas: No ductal dilation. Spleen: Size is within normal limits. Adrenal Glands: No adrenal nodules. Stomach and Bowel: Normal colonic caliber, without significant wall thickening. Peritoneum: No abnormal intraperitoneal fluid. No free air. Ventral Wall: No hernia. Clips in the left abdomen deep to the rectus musculature. Abdominal Nodes: No retroperitoneal or mesenteric adenopathy by size criteria. Vessels: Aorta and inferior vena cava are normal in size. Renal arteries and veins are patent. Bones: No aggressive osseous abnormality. L3 intraosseous hemangioma. Multilevel DDD. IMPRESSION: 1. Right mid kidney solid enhancing mass measuring 3.2 cm. Not felt to be significantly changed in size. Most consistent with renal cell carcinoma until proven otherwise. 2. No hydronephrosis. No kidney stones. 3. No adenopathy. Dictated by: Navarro Whitehead M.D. on 03/06/2024 at 17:35 Approved by: Navarro Whitehead M.D. on 03/06/2024 at 17:46
[2024-03-06 14:04] LABS: Estimated Glomerular Filt Rate 45 mL/min (>60)
== END ==
PROVIDERS: Radiology Diagnostic Radiology; PCP Internal Medicine; Referring Provider Urology; Visit Provider Urology
DX: N28.9 Disorder of kidney and ureter, unspecified (principal)
CPT/HCPCS: 36415; 74170; 82565; Q9967

== ENCOUNTER → 2024-04-03 12:43 | Outpatient (CLI) | payer MEDICARE, OTHER, SELFPAY ==
[2023-10-17 22:29] VITALS: BMI 29.6
--- NOTE | 2024-04-03 12:44 | DI.MRI.S_ITS ---
PROCEDURE: MR HEAD/BRAIN WO CON INDICATIONS: DEMENTIA TECHNIQUE: Non-contrast axial T1 spin echo, axial T2 fast spin echo, sagittal and axial FLAIR, coronal T2 fast spin echo, axial gradient echo, axial diffusion and ADC through the brain. COMPARISON: None. FINDINGS: Image quality: Excellent. CSF spaces: Ventricles appear symmetric in size and shape. Basal cisterns are patent. No extra-axial fluid collections. Brain: No intracranial bleeds or mass effects. There is cerebral volume loss for age. There are periventricular and deep white matter chronic small vessel ischemic changes. Brainstem appears normal. Diffusion-weighted images show no acute infarct. No chronic ischemic insults. Normal intravascular flow voids are present. Skull and face: Calvarial bone marrow is normal in signal. Orbits are normal. Sinuses: Sinuses and mastoids are clear. IMPRESSION: Age-related global volume loss and mild chronic microvascular ischemic changes. No acute intracranial abnormalities. Dictated by: Curt Black M.D. on 04/03/2024 at 16:44 Approved by: Curt Black M.D. on 04/03/2024 at 16:45
== END ==
LOC: MRI 12:44
PROVIDERS: PCP Internal Medicine; Referring Provider Internal Medicine; Visit Provider Internal Medicine
DX: F03.B0 Unspecified dementia, moderate, without behavioral disturbance, psychotic disturbance, mood disturbance, and anxiety (principal)
CPT/HCPCS: 70551

== ENCOUNTER 2024-07-19 16:32 | Emergency (ER) | payer MEDICARE, SELFPAY ==
[2023-10-17 22:29] VITALS: BMI 29.6
[2024-07-19] VITALS (56 sets, daily range): BP systolic 94–143; BP diastolic 51–67; PULSE 44–53; RESP 16–35; TEMP 36.3; O2SAT 95–100; BMI 28.8
--- NOTE | 2024-07-19 16:47 | EKG_ITS ---
[address] [address] Test Date: 2024-07-19 Pat Name: Kailey Chaudhry Department: Room: Gender: Female Lock Tender: ZACKARY : 1945 Requested By: Order Number: [id number] Reading MD: Devon Escalera MD Measurements Intervals [place] Rate: 44 P: 77 [place]: 218 QRS: -3 QRSD: 96 T: 58 QT: 478 QTc: 408 Interpretive Statements Marked sinus bradycardia with 1st degree AV block Low voltage QRS Cannot rule out Anterior infarct , age undetermined Electronically Signed On 07-20-2024 11:40:36 PST by Devon Escalera MD
--- NOTE | 2024-07-19 16:47 | DI.RAD.S_ITS ---
PROCEDURE: XR CHEST 1V INDICATIONS: Shortness of breath TECHNIQUE: One view of the chest was acquired. COMPARISON: [facility], CR, XR CHEST 1V, 10/20/2023, 8:49. FINDINGS: Surgical changes and devices: None. Lungs and pleura: Lungs are clear. No pleural effusions or pneumothorax. Mediastinum: Mediastinal contours appear normal. Heart size is normal. Bones and chest wall: No suspicious bony lesions. Overlying soft tissues appear unremarkable. IMPRESSION: No acute cardiopulmonary pathology. Dictated by: Jones Gutierrez M.D. on 07/19/2024 at 18:52 Approved by: Jones Gutierrez M.D. on 07/19/2024 at 18:52
[2024-07-19 17:09] LABS: Add Manual Diff / Slide Review NO; Basophils Absolute Auto 0 /uL (0-100); Basophils Percent Auto 0.8 % (0-2); Eosinophils Absolute Auto 100 /uL (0-450); Eosinophils Percent Auto 1.2 % (2-4); Hematocrit 32.9 % (36-46); Hemoglobin 11.4 g/dL (12.0-16.0); INR 1.4 (0.9-1.3); Lymphocytes Absolute Auto 1400 /uL (1100-4500); Lymphocytes Percent Auto 30.4 % (25-40); Mean Corpuscular HGB Conc 34.7 % (30-36); Mean Corpuscular Hemoglobin 32.4 PG (26-34); Mean Corpuscular Volume 93.2 fL (80-100); Monocytes Absolute Auto 400 /uL (0-900); Monocytes Percent Auto 8.1 % (3-14); Neutrophils Absolute Auto 2800 /uL (1500-7000); Neutrophils Percent Auto 59.5 % (50-75); Platelet Count 163 X10^3/uL (150-400); Prothrombin Time 16.1 SECONDS (9.4-12.5); Red Blood Cell Count 3.52 X10^6/uL (4.0-5.2); Red Cell Distribution Width 13.7 % (11.6-14.8); White Blood Cell Count 4.7 X10^3/uL (4.5-11.0)
[2024-07-19 17:12] LABS: Lactate (Lactic Acid) 0.7 mmol/L (0.7-2.1)
[2024-07-19 17:13] LABS: Alanine Aminotransferase 34 IU/L (<35); Albumin 4.1 g/dL (3.5-5.0); Albumin Globulin Ratio 1.5 (1.0-2.8); Alkaline Phosphatase 53 U/L (38-126); Aspartate Aminotransferase 38 IU/L (14-36); BUN Creatinine Ratio 24.7 (6-22); Bilirubin Total 0.5 mg/dL (0.2-1.3); Blood Urea Nitrogen 49 mg/dL (7-17); Calcium 10.4 mg/dL (8.4-10.2); Carbon Dioxide 12 mmol/L (22-32); Chloride 113 mmol/L (98-107); Estimated Glomerular Filt Rate 25 mL/min (>60); Globulin 2.7 g/dL (1.7-4.1); Glucose 98 mg/dL (80-110); HEMOLYSIS < 15 (0-50); Potassium 3.5 mmol/L (3.4-5.1); Sodium 136 mmol/L (137-145); Total Protein 6.8 g/dL (6.3-8.2)
[2024-07-19 17:24] LABS: NT-proBNP (BNP-Adult 18+) 399 pg/mL (<450); Troponin I < 0.012 ng/mL (0.01-0.034)
--- NOTE | 2024-07-19 17:47 | PC.NURSE ---
Pt HR consistently 45-50. Pt c/o chest pressure and dizziness. Skin cool and dry. A&Ox4. Dr Kelly notified of pt status.
--- NOTE | 2024-07-19 18:10 | ED_ITS ---
HPI - Chest Pain General Chief Complaint: Chest Pain Stated Complaint: sob Time Seen by Provider: 07/19/24 17:52 History of Present Illness HPI narrative: 78-year-old female with history of paroxysmal atrial fibrillation on Eliquis, HFrEF (25-30% from 10/17/23), mild dementia, R renal mass (followed by Dr. Segal), presents by private vehicle from home for 1 day of shortness of breath and central chest pain. Symptoms are constant, worsened with exertion. Patient reports compliance with her medications and doses have not been changed recently. Patient called her education department registrar's office about her symptoms today, and they referred her to the emergency department for evaluation. Patient denies leg swelling, orthopnea, other complaints. Noted to be very bradycardic on arrival, patient does not know her baseline heart rate. Related Data Home Medications Medication Instructions Recorded Confirmed atorvastatin 10 mg tablet 10 mg PO DAILY 10/18/23 07/19/24 budesonide 9 mg tablet,delayed and 9 mg PO DAILY 12/14/23 07/19/24 extended release furosemide 20 mg tablet 20 mg PO DAILY 12/14/23 07/19/24 sacubitril 24 mg-valsartan 26 mg 1 tab PO BID 12/14/23 07/19/24 tablet (Entresto) spironolactone 25 mg tablet 25 mg PO DAILY 12/14/23 07/19/24 Previous Rx's Medication Instructions Recorded albuterol sulfate 90 mcg/actuation 2 puff inhalation Q4-6H PRN 04/30/20 aerosol inhaler shortness of breath or wheezing #18 grams fluticasone propionate 50 1 spray intranasal BID PRN allergy 04/30/20 mcg/actuation nasal symptoms ##1 spray,suspension (Flonase Allergy Relief) apixaban 5 mg tablet (Eliquis) 5 mg PO BID #60 tabs 10/22/23 metoprolol succinate 100 mg 100 mg PO DAILY #30 tabs 10/22/23 tablet,extended release 24 hr Allergies Allergy/AdvReac Type Severity Reaction Status Date / Time Penicillins [PENICILLINS] Allergy Severe ANAPHYLAXIS Verified 10/17/23 16:57 Patient History Medical History History of anemia Lesion of right [place] kidney Hyperlipidemia Acute sinusitis Chest pain Dyspnea Fatigue Allergic rhinitis (11/01/14) Surgical History Status post hysterectomy Family History Father Congestive heart failure Hypertrophic cardiomegaly Brother Congestive heart failure Hypertrophic cardiomyopathy Sister Congestive heart failure Hypertrophic cardiomyopathy Sister Heart disease Pacemaker Mother Hypertension Social History marital status: number of children: 2 household members: spouse 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 [employer] Smoking Status: Former smoker second hand exposure: No alcohol intake: former substance use type: does not use caffeine: Yes Smoking Status: Former smoker alcohol intake frequency: holidays/special occasions only Substance Use Type: does not use Exam Initial Vital Signs Initial Vital Signs: Vital Signs Temperature 97.4 F L 07/19/24 16:41 Pulse Rate 50 L 07/19/24 16:41 Respiratory Rate 22 07/19/24 16:41 Blood Pressure 128/62 07/19/24 16:41 Pulse Oximetry 100 07/19/24 16:41 Oxygen Delivery Method Room Air 07/19/24 16:41 Const: Awake, alert, no acute distress, nontoxic appearing Cardiac: Bradycardia, regular rhythm RESP: unlabored, clear bilaterally, no wheezing MSK: No edema, full range of motion, pulses equal Skin: Warm, Dry, intact, no rashes Neuro: AO x3, CN II-XII grossly intact, moves all extremities Course Orders Ordered: ED Orders 07/19/24 16:47 XR chest 1V Stat EKG-12 Lead Stat Measure peak expiratory flow ONCE RT Consult Eval and Treat NOW 07/19/24 16:53 Complete Blood Count AUTO DIFF Stat Comprehensive Metabolic Panel Stat Lactate (Lactic Acid) Stat NT-proBNP (BNP-Adult 18+) Stat Prothrombin Time INR Stat Troponin I Stat 07/19/24 20:24 Troponin I Stat Vital Signs Vital signs: Vital Signs - 8 hr 07/19/24 17:30 07/19/24 17:33 07/19/24 17:33 Pulse Rate 44 L 45 L Respiratory Rate 22 23 Blood Pressure 97/53 L Pulse Oximetry 100 100 Oxygen Delivery Method 07/19/24 17:34 07/19/24 17:34 07/19/24 17:36 Pulse Rate 45 L 44 L Respiratory Rate 20 19 Blood Pressure 105/52 L Pulse Oximetry 100 100 Oxygen Delivery Method 07/19/24 17:36 07/19/24 17:40 07/19/24 17:40 Pulse Rate 46 L Respiratory Rate 21 Blood Pressure 111/57 L 108/59 L Pulse Oximetry 100 Oxygen Delivery Method 07/19/24 17:45 07/19/24 17:45 07/19/24 17:50 Pulse Rate 46 L 46 L Respiratory Rate 26 H 27 H Blood Pressure 112/57 L Pulse Oximetry 100 100 Oxygen Delivery Method 07/19/24 17:50 07/19/24 17:55 07/19/24 17:55 Pulse Rate 46 L Respiratory Rate 27 H Blood Pressure 112/53 L 100/59 L Pulse Oximetry 100 Oxygen Delivery Method 07/19/24 18:00 07/19/24 18:00 07/19/24 18:05 Pulse Rate 46 L Respiratory Rate 25 H Blood Pressure 99/56 L 102/59 L Pulse Oximetry 100 Oxygen Delivery Method 07/19/24 18:05 07/19/24 18:10 07/19/24 18:10 Pulse Rate 45 L 46 L Respiratory Rate 25 H 24 Blood Pressure 95/54 L Pulse Oximetry 100 100 Oxygen Delivery Method 07/19/24 18:15 07/19/24 18:15 07/19/24 18:20 Pulse Rate 46 L 46 L Respiratory Rate 25 H 22 Blood Pressure 105/56 L Pulse Oximetry 100 100 Oxygen Delivery Method 07/19/24 18:20 07/19/24 18:25 07/19/24 18:25 Pulse Rate 46 L Respiratory Rate 25 H Blood Pressure 113/57 L 102/56 L Pulse Oximetry 100 Oxygen Delivery Method 07/19/24 18:30 07/19/24 18:31 07/19/24 18:31 Pulse Rate 47 L 46 L Respiratory Rate 26 H 32 H Blood Pressure 116/61 Pulse Oximetry 100 100 Oxygen Delivery Method 07/19/24 18:35 07/19/24 18:35 07/19/24 18:40 Pulse Rate 47 L 47 L Respiratory Rate 23 22 Blood Pressure 102/55 L Pulse Oximetry 99 98 Oxygen Delivery Method 07/19/24 18:40 07/19/24 18:45 07/19/24 18:45 Pulse Rate 47 L Respiratory Rate 21 Blood Pressure 94/55 L 96/53 L Pulse Oximetry 99 Oxygen Delivery Method 07/19/24 18:50 07/19/24 18:50 07/19/24 18:55 Pulse Rate 48 L Respiratory Rate 20 Blood Pressure 94/52 L 96/52 L Pulse Oximetry 97 Oxygen Delivery Method 07/19/24 18:55 07/19/24 19:00 07/19/24 19:00 Pulse Rate 48 L 48 L Respiratory Rate 18 17 Blood Pressure 95/51 L Pulse Oximetry 97 97 Oxygen Delivery Method 07/19/24 19:05 07/19/24 19:05 07/19/24 19:10 Pulse Rate 50 L Respiratory Rate 20 Blood Pressure 103/59 L 104/59 L Pulse Oximetry 99 Oxygen Delivery Method 07/19/24 19:10 07/19/24 19:15 07/19/24 19:15 Pulse Rate 49 L 48 L Respiratory Rate 20 17 Blood Pressure 100/59 L Pulse Oximetry 98 100 Oxygen Delivery Method 07/19/24 19:20 07/19/24 19:20 07/19/24 19:25 Pulse Rate 47 L Respiratory Rate 19 Blood Pressure 97/55 L 97/55 L Pulse Oximetry 98 Oxygen Delivery Method 07/19/24 19:25 07/19/24 19:30 07/19/24 19:30 Pulse Rate 47 L 47 L Respiratory Rate 16 19 Blood Pressure 97/53 L Pulse Oximetry 100 98 Oxygen Delivery Method 07/19/24 19:35 07/19/24 19:35 07/19/24 19:40 Pulse Rate 48 L 47 L Respiratory Rate 19 18 Blood Pressure 99/57 L Pulse Oximetry 98 100 Oxygen Delivery Method Room Air 07/19/24 19:40 07/19/24 19:45 07/19/24 19:45 Pulse Rate 46 L Respiratory Rate 18 Blood Pressure 109/64 102/59 L Pulse Oximetry 100 Oxygen Delivery Method 07/19/24 19:50 07/19/24 19:50 07/19/24 19:55 Pulse Rate 46 L Respiratory Rate 20 Blood Pressure 114/61 112/62 Pulse Oximetry 100 Oxygen Delivery Method Room Air 07/19/24 19:55 07/19/24 20:00 07/19/24 20:00 Pulse Rate 45 L 46 L Respiratory Rate 18 20 Blood Pressure 113/64 Pulse Oximetry 100 100 Oxygen Delivery Method 07/19/24 20:05 07/19/24 20:05 07/19/24 20:10 Pulse Rate 45 L Respiratory Rate 23 Blood Pressure 110/61 95/51 L Pulse Oximetry 99 Oxygen Delivery Method 07/19/24 20:10 07/19/24 20:15 07/19/24 20:15 Pulse Rate 45 L 45 L Respiratory Rate 20 28 H Blood Pressure 106/57 L Pulse Oximetry 100 100 Oxygen Delivery Method Room Air 07/19/24 20:20 07/19/24 20:20 07/19/24 20:25 Pulse Rate 46 L Respiratory Rate 26 H Blood Pressure 109/57 L 111/56 L Pulse Oximetry 100 Oxygen Delivery Method 07/19/24 20:25 07/19/24 20:30 07/19/24 20:31 Pulse Rate 46 L 47 L Respiratory Rate 30 H 24 Blood Pressure 122/58 L Pulse Oximetry 100 100 Oxygen Delivery Method 07/19/24 20:31 07/19/24 20:35 07/19/24 20:35 Pulse Rate 47 L 46 L Respiratory Rate 24 33 H Blood Pressure 121/56 L Pulse Oximetry 100 100 Oxygen Delivery Method 07/19/24 20:40 07/19/24 20:40 07/19/24 20:45 Pulse Rate 45 L Respiratory Rate 27 H Blood Pressure 112/56 L 108/59 L Pulse Oximetry 100 Oxygen Delivery Method 07/19/24 20:45 07/19/24 20:50 07/19/24 20:50 Pulse Rate 47 L 45 L Respiratory Rate 25 H 29 H Blood Pressure 106/59 L Pulse Oximetry 99 100 Oxygen Delivery Method 07/19/24 20:55 07/19/24 20:55 07/19/24 21:00 Pulse Rate 45 L Respiratory Rate 35 H Blood Pressure 106/57 L 103/56 L Pulse Oximetry 100 Oxygen Delivery Method 07/19/24 21:00 07/19/24 21:05 07/19/24 21:05 Pulse Rate 44 L 47 L Respiratory Rate 29 H 21 Blood Pressure 105/53 L Pulse Oximetry 100 100 Oxygen Delivery Method 07/19/24 21:11 07/19/24 21:11 07/19/24 21:29 Pulse Rate 45 L 47 L Respiratory Rate 28 H 18 Blood Pressure 118/57 L 118/57 L Pulse Oximetry 95 97 Oxygen Delivery Method Room Air MDM - Chest Pain Differential Diagnosis Differential diagnosis: Likely atypical chest pain, costochondritis and chest pain Lab Data 07/19/24 16:53 07/19/24 16:53 Labs: Lab Results 07/19/24 07/19/24 Range/Units 16:53 20:24 WBC 4.7 (4.5-11.0) X10^3/uL RBC 3.52 L (4.0-5.2) X10^6/uL Hgb 11.4 L (12.0-16.0) g/dL Hct 32.9 L (36-46) % MCV 93.2 (80-100) fL MCH 32.4 (26-34) PG MCHC 34.7 (30-36) % RDW 13.7 (11.6-14.8) % Plt Count 163 (150-400) X10^3/uL Neut % (Auto) 59.5 (50-75) % Lymph % (Auto) 30.4 (25-40) % Emanuel % (Auto) 8.1 (3-14) % Eos % (Auto) 1.2 L (2-4) % Baso % (Auto) 0.8 (0-2) % Neut # (Auto) 2800 (6185-5984) /uL Lymph # (Auto) 1400 (8899-1950) /uL Emanuel # (Auto) 400 (0-900) /uL Eos # (Auto) 100 (0-450) /uL Baso # (Auto) 0 (0-100) /uL PT 16.1 H (9.4-12.5) SECONDS INR 1.4 H (0.9-1.3) Sodium 136 L (137-145) mmol/L Potassium 3.5 (3.4-5.1) mmol/L Chloride 113 H (98-107) mmol/L Carbon Dioxide 12 L (22-32) mmol/L BUN 49 H (7-17) mg/dL Creatinine 1.98 H (0.52-1.04) mg/dL Estimated GFR 25 L (>60) mL/min BUN/Creatinine Ratio 24.7 H (6-22) Glucose 98 (80-110) mg/dL Lactate 0.7 (0.7-2.1) mmol/L Calcium 10.4 H (8.4-10.2) mg/dL Total Bilirubin 0.5 (0.2-1.3) mg/dL AST 38 H (14-36) IU/L ALT 34 (<35) IU/L Alkaline Phosphatase 53 (38-126) U/L Troponin I < 0.012 0.012 (0.01-0.034) ng/mL NT-Pro-B Natriuret Pep 399 (<450) pg/mL Total Protein 6.8 (6.3-8.2) g/dL Albumin 4.1 (3.5-5.0) g/dL Globulin 2.7 (1.7-4.1) g/dL Albumin/Globulin Ratio 1.5 (1.0-2.8) Imaging Data Chest x-ray: Radiologist's Impression: PROCEDURE: XR CHEST 1V INDICATIONS: Shortness of breath TECHNIQUE: One view of the chest was acquired. COMPARISON: [facility], , XR CHEST 1V, 10/20/2023, 8:49. FINDINGS: Surgical changes and devices: None. Lungs and pleura: Lungs are clear. No pleural effusions or pneumothorax. Mediastinum: Mediastinal contours appear normal. Heart size is normal. Bones and chest wall: No suspicious bony lesions. Overlying soft tissues appear unremarkable. IMPRESSION: No acute cardiopulmonary pathology. Dictated by: Jones Gutierrez M.D. on 07/19/2024 at 18:52 Approved by: Jones Gutierrez M.D. on 07/19/2024 at 18:52 ECG Data Interpretation: Sinus bradycardia at 44 beats per minute. Slightly prolonged MS. No ST T wave changes MDM Narrative Medical decision making narrative: Well-appearing patient with 1 day of symptoms. Physical exam is overall unremarkable, no signs of volume overload. Patient has marked bradycardia with average heart rate around 40-45 beats per minute. Patient does not know her baseline heart rate. Laboratory work, chest x-ray imaging to be obtained. EKG sinus bradycardia without concerning ischemic findings. Laboratory work is reviewed. Patient has had increase in her creatinine, 1.98 today versus 1.22 back in March with corresponding drop in creatinine. She was on 100 mg of metoprolol daily, and with his elevation in creatinine this may be leading to symptomatic bradycardia. Troponin undetectable, chest x-ray negative for acute findings. Case discussed with cardiology Dr. Mina, who recommended skipping tomorrow's dose of Lasix and then subsequently decreasing to 10 mg daily. In addition recommends halving dose of metoprolol in order to prevent profound bradycardia. Patient and spouse at bedside are in agreement with plan. Strict ED return precautions discussed at bedside Discharge Plan Departure Patient Disposition: Home Clinical Impression: Chest pain, Breath shortness, Creatinine elevation, Bradycardia Instructions: DI for Chest Pain Activity Restrictions/Additional Instructions: Today your heart rate was low (between 40-50) and your kidney function was higher than it has been (1.98 today vs 1.22 in March). After discussing with Cardiology they recommend the followin. Skip your furosemide dose tomorrow 2. After the missed furosemide dose, cut your dose in half (down to 10mg daily) 3. Decrease your metoprolol to 50mg daily 4. Call Dr. Sawyer's office for follow up appointment. If you notice any new or worsening symptoms please return to the emergency department for repeat evaluation. Prescriptions: No Action albuterol sulfate 90 mcg/actuation HFA aerosol inhaler 2 puff INHALATION Q4-6H PRN (Reason: shortness of breath or wheezing) Qty: 18 2RF fluticasone propionate [Flonase Allergy Relief] 50 mcg/actuation spray,suspension 1 spray Intranasal BID PRN (Reason: allergy symptoms) Qty: 1 1RF atorvastatin 10 mg tablet 10 mg PO DAILY Eliquis 5 mg Tablet 5 mg PO BID Qty: 60 0RF metoprolol succinate 100 mg tablet extended release 24 hr 100 mg PO DAILY Qty: 30 0RF furosemide 20 mg tablet 20 mg PO DAILY spironolactone 25 mg tablet 25 mg PO DAILY Entresto 24-26 mg tablet 1 tab PO BID budesonide 9 mg tablet,delayed and ext.release 9 mg PO DAILY Referrals: Camilla Mosley MD [Primary Care Provider] - Stand Alone Forms: Patient Portal/API/Survey
--- NOTE | 2024-07-19 19:44 | PC.NURSE ---
Addendum entered by Nighat Navarro R.N. 07/19/24 19:49: Pt states I just feel tired. Original Note: Pt awake and alert sitting in ED stretcher speaking with male staff veterinarian. No distress noted at this time. Pt remains connected to cardiac, resp, pulse ox, and blood pressure monitors with alarms on and audible. Call light within reach.
--- NOTE | 2024-07-19 20:16 | PC.NURSE ---
No change in patient condition or status. Pt sitting in ED stretcher speaking with male advertising copy writer and looking on phone. No distress noted at this time. Pt remains connected to vs monitors with alarms on and audible. Call light within reach.
--- NOTE | 2024-07-19 20:26 | PC.NURSE ---
Repeat troponin drawn from existing IV line
[2024-07-19 20:56] LABS: Troponin I 0.012 ng/mL (0.01-0.034)
--- NOTE | 2024-07-19 21:20 | PC.NURSE ---
Pt ambulatory around department without difficulty or assistance. States some SOB after on way back to exam room. Dr. Wood aware and ok with continued discharge.
== END 2024-07-19 21:29 | disposition home or self-care (01) ==
PROVIDERS: Emergency Medicine; Emergency Provider Emergency Medicine; PCP Internal Medicine
DX: R07.9 Chest pain, unspecified (principal); R06.02 Shortness of breath; R00.1 Bradycardia, unspecified; R79.89 Other specified abnormal findings of blood chemistry; I44.0 Atrioventricular block, first degree
CPT/HCPCS: 36415; 71045; 80053; 83605; 83880; 84484; 85025; 85610; 93005; 99283; 99284

== ENCOUNTER → 2024-09-20 08:00 | Outpatient (CLI) | payer MEDICARE, OTHER, SELFPAY ==
[2023-10-17 22:29] VITALS: BMI 29.6
--- NOTE | 2024-09-20 08:01 | DI.ECHO.S_ITS ---
[facility] : : [id number] : [place] : : [id number] : : Phone: [phone] Echocardiogram Report + + :Name: ASIF FONTANEZ Study Date: 09/20/2024 Height: 68 in : :[facility] ReadingLocation: Weight: 179 lb : : Gender: Female BSA: 1.9 m2 : :: 1945 Age: 78 yrs BP: 112/60 mmHg: :Reason For Study: SYSTOLIC HEART FAILURE : :Ordering Physician: JESÚS, : :MARCIA Callejas Performed By: Ayala Cardozo : :Referring: MARCIA SAWYER : + + Interpretation Summary The ejection fraction is estimated to be 60-65%. Diastolic function could not be accurately assessed due to contradictory data. The left atrium is moderately dilated. The right ventricle is mildly dilated. The right ventricular systolic function is normal. The right atrium is mildly dilated. There is mild mitral regurgitation. There is mild aortic regurgitation. There is mild tricuspid regurgitation. The right ventricular systolic pressure is estimated to be at least 30 mmHg based on an estimated right atrial pressure of 3 mm Hg. The ascending aorta measures 4.8 cm, unchanged from prior study. Compared to the prior study dated 10/18/2023, the ejection fraction has significantly improved. Procedure: A two-dimensional transthoracic echocardiogram with color flow and Doppler was performed. The study quality was technically adequate. Comparison is made with the echocardiogram of 07/03/2024. The patient was in sinus bradycardia with heart rates between 46-53 bpm during the exam. Left Ventricle: The left ventricle is normal in size and wall thickness. The ejection fraction is estimated to be 60-65%. Diastolic function could not be accurately assessed due to contradictory data. Right Ventricle: The right ventricle is mildly dilated. The right ventricular systolic function is normal. Atria: The left atrium is moderately dilated. The right atrium is mildly dilated. Mitral Valve: The mitral valve leaflets appear mildly thickened, but open well. There is mild mitral annular calcification. There is mild mitral regurgitation. Aortic Valve: The aortic valve is trileaflet. The aortic valve is mildly calcified. The peak aortic velocity is 2.6 m/sec. The aortic valve mean gradient is 16 mmHg. There is no hemodynamically significant valvular aortic stenosis. There is mild aortic regurgitation. Tricuspid Valve: The tricuspid valve leaflets are thin and pliable. There is mild tricuspid regurgitation. The right ventricular systolic pressure is estimated to be at least 30 mmHg based on an estimated right atrial pressure of 3 mm Hg. Pulmonic Valve: The pulmonic valve leaflets are thin and pliable; valve motion is normal. There is mild pulmonic regurgitation. Great Vessels: The aortic root is normal size. The ascending aorta is severely enlarged. The IVC is of normal diameter and collapses greater than 50% with a sniff. This suggests a low right atrial pressure of 3 mm Hg. Pericardium/ Pleura There is no pericardial effusion. There is no pleural effusion. MMode/2D Measurements & Calculations LVIDd: 4.6 cm LVOT diam: 2.1 cm LVIDs: 3.0 cm Ao root diam: 3.2 cm FS: 35.4 % asc Aorta Diam: 4.9 cm IVSd: 0.73 cm Ao Arch Diam (Prox Trans): 4.4 cm LVPWd: 0.74 cm LV michele. diameter/BSA (cm/m^2): 2.3 LV sys. diameter/BSA (cm/m^2): 1.5 LA A2 area: 23.1 cm2 RA long axis: 6.2 cm LA A4 area: 27.7 cm2 RA area: 22.7 cm2 LA length (vol): 6.1 cm RA vol: 71.4 ml LA vol: 89.0 ml RA : 36.6 ml/m2 LA vol index: 45.6 ml/m2 IVC diam: 0.96 cm RVD1 (basal): 4.1 cm RVD2 (mid): 4.0 cm TAPSE: 2.2 cm Doppler Measurements & Calculations Ao V2 max: 259.7 cm/sec LVOT Max William: 117.5 cm/sec Ao V2 mean: 185.3 cm/sec LV V1 max P.5 mmHg Ao max P.2 mmHg LV V1 VTI: 26.8 cm Ao mean P.8 mmHg SIDNEY(I,D): 1.6 cm2 Ao V2 VTI: 61.7 cm SIDNEY(V,D): 1.6 cm2 sev ratio: 0.43 SIDNEY indexed to BSA (cm^2/m^2): 0.80 AI P1/2t: 804.1 msec AI dec slope: 155.2 cm/sec2 MV E max william: 77.5 cm/sec TR max william: 257.8 cm/sec MV A max william: 100.1 cm/sec TR max P.6 mmHg MV E/A: 0.77 PA V2 max: 113.0 cm/sec Med Peak E' William: 5.8 cm/sec PA V2 mean: 76.5 cm/sec E/E' med: 13.3 PA mean P.6 mmHg Lat Peak E' William: 7.7 cm/sec PA pr(Accel): 36.2 mmHg E/E' lat: 10.1 E/e' average: 11.7 MV dec time: 0.23 sec SV(LVOT): 95.7 ml Reading Physician:08:36 AM
== END ==
PROVIDERS: PCP Internal Medicine; Referring Provider Internal Medicine Cardiovascular Disease; Visit Provider Internal Medicine Cardiovascular Disease
DX: I50.20 Unspecified systolic (congestive) heart failure (principal); I08.3 Combined rheumatic disorders of mitral, aortic and tricuspid valves; I77.89 Other specified disorders of arteries and arterioles
CPT/HCPCS: 93306

== ENCOUNTER → 2024-09-20 08:02 | Outpatient (CLI) | payer MEDICARE, OTHER, SELFPAY ==
[2023-10-17 22:29] VITALS: BMI 29.6
--- NOTE | 2024-09-20 08:04 | DI.CT.S_ITS ---
PROCEDURE: CT ABDOMEN RENAL PROTOCOL INDICATIONS: Follow-up right renal lesion TECHNIQUE: Optional 5 mm thick noncontrast images acquired from the diaphragm to the iliac crests. After the administration of intravenous contrast, 5 mm thick images again acquired from the diaphragm to the iliac crests in the arterial and urographic phases. 5 mm thick coronal and sagittal reformats were then acquired. For radiation dose reduction, the following was used: automated exposure control, adjustment of mA and/or kV according to patient size. COMPARISON: [facility], CT, CT ABDOMEN RENAL PROTOCOL, 03/06/2024, 14:29. [facility], CT, CT ABDOMEN PELVIS W CON, 08/25/2023, 23:45. FINDINGS: Image quality: Diagnostic Lower chest: Basal atelectasis. Coronary calcifications. Liver: Segment 5 liver cyst again seen. No definite enhancing mass Gallbladder and biliary system: Unremarkable, nondilated Pancreas: No ductal dilation Spleen: Nonenlarged Adrenals: No discrete nodules Kidneys: Right mid region mass measures 3.5 x 2.6 cm on coronal image . In August 2023, this was similar size at 3.5 x 2.8 cm. Other cysts and subcentimeter lesions are present which are too small to characterize but usually also representing cysts. 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 No obstructing calcified stone. There is no tumor thrombus identified in the renal veins Vessels and lymph nodes: The main portal vein appears patent. No abdominal aortic aneurysm. No pathologic lymph nodes by size criteria. Bowel and peritoneum: No pathologic ascites or abscess. No small bowel obstruction. Body wall: Unremarkable Bones: Degenerative changes. Suspected vertebral hemangioma present. IMPRESSION: Right renal mass is similar dating back to August 2023. No definite metastatic disease in the abdomen. No renal vein tumor thrombus identified. No hydronephrosis. Other findings above. Dictated by: Edson Johnson M.D. on 09/20/2024 at 14:14 Approved by: Edson Johnson M.D. on 09/20/2024 at 14:20
[2024-09-20 09:23] LABS: Estimated Glomerular Filt Rate 41 mL/min (>60)
[2024-09-20 09:59] LABS: BUN Creatinine Ratio 24.1 (6-22); Blood Urea Nitrogen 32 mg/dL (7-17); Calcium 10.2 mg/dL (8.4-10.2); Carbon Dioxide 22 mmol/L (22-32); Chloride 111 mmol/L (98-107); Estimated Glomerular Filt Rate 41 mL/min (>60); Glucose 85 mg/dL (80-110); HEMOLYSIS < 15 (0-50); Potassium 4.7 mmol/L (3.4-5.1); Sodium 138 mmol/L (137-145)
== END ==
PROVIDERS: Radiology Diagnostic Radiology; PCP Internal Medicine; Referring Provider Urology; Visit Provider Urology
DX: N28.9 Disorder of kidney and ureter, unspecified (principal); K76.89 Other specified diseases of liver; J98.11 Atelectasis; I70.90 Unspecified atherosclerosis
CPT/HCPCS: 36415; 74170; 80048; 82565; 93306; Q9967

== ENCOUNTER → 2024-10-05 09:39 | Outpatient (CLI) | payer MEDICARE, OTHER, SELFPAY ==
[2023-10-17 22:29] VITALS: BMI 29.6
--- NOTE | 2024-10-05 09:42 | DI.CT.S_ITS ---
PROCEDURE: CT ANGIO CHEST INDICATIONS: ANEURYSM OF ASCENDING AORTA TECHNIQUE: After the administration of intravenous contrast, 2.5 mm thick sections acquired from the lung apices to the posterior lung bases. Maximum intensity projection (MIP) oblique sagittal reformats were then acquired parallel to the aortic arch. For radiation dose reduction, the following was used: automated exposure control. COMPARISON: [facility], CT, CT ANGIO CHEST PE PROTOCOL, 10/17/2023, 20:08. FINDINGS: Image quality: Diagnostic Aorta: Fusiform aneurysmal dilatation of the ascending aorta measuring upwards of 4.9 cm in greatest diameter (series 4, image 68) and unchanged from prior study of 10/17/2023. The remainder of the thoracic aorta appears unremarkable. Origins of the great vessels appear patent and unremarkable. Lower Neck: No enlarged lymph nodes. Thyroid: 1.7 cm hypodense nodule within the right thyroid lobe. Axillae: No enlarged lymph nodes. Chest Wall: Unremarkable. Bones: Unremarkable. Lungs and Pleura: Multiple foci of tree-in-bud opacity within the right lower lobe (series 5, images 128, 156 and 164). 3 mm subpleural nodule along the lateral right lower lobe (series 5, image 196). Remainder of both lungs without focal airspace opacity or consolidation. No evidence of pneumothorax or pleural effusion. Heart: Heart size is normal. No pericardial effusion. Thoracic Vessels: Pulmonary arteries demonstrate normal size. Mediastinum and Maya: No enlarged lymph nodes. Esophagus: No wall thickening. No hiatal hernia. Upper Abdomen: Unchanged size of a 2.6 cm simple appearing cyst within segment 4B of the liver. IMPRESSION: 1. Stable fusiform aneurysm of the ascending aorta measuring upwards of 4.9 cm in greatest diameter. 2. Multiple foci of tree-in-bud pattern opacities within the right lower lobe likely related to infectious or inflammatory bronchiolitis. Dictated by: Po Reece M.D. on 10/05/2024 at 11:09 Approved by: Po Reece M.D. on 10/05/2024 at 11:33
== END ==
PROVIDERS: PCP Internal Medicine; Referring Provider Internal Medicine Cardiovascular Disease; Visit Provider Internal Medicine Cardiovascular Disease
DX: I71.21 Aneurysm of the ascending aorta, without rupture (principal)
CPT/HCPCS: 71275; Q9967

== ENCOUNTER → 2025-05-16 19:12 | Outpatient (ROUT) | payer MEDICARE, OTHER, SELFPAY ==
[2023-10-17 22:29] VITALS: BMI 29.6
== END ==
PROVIDERS: PCP Internal Medicine; Visit Provider Dermatology
DX: L03.90 Cellulitis, unspecified (principal)
CPT/HCPCS: 87070; 87075; 87077; 87186; 87205

== ENCOUNTER → 2025-06-20 14:59 | Outpatient (CLI) | payer MEDICARE, OTHER, SELFPAY ==
[2023-10-17 22:29] VITALS: BMI 29.6
--- NOTE | 2025-06-20 15:01 | DI.CT.S_ITS ---
PROCEDURE: CT ABDOMEN RENAL PROTOCOL INDICATIONS: Follow-up right renal lesion TECHNIQUE: Optional 5 mm thick noncontrast images acquired from the diaphragm to the iliac crests. After the administration of intravenous contrast, 5 mm thick images again acquired from the diaphragm to the iliac crests in the arterial and urographic phases. 5 mm thick coronal and sagittal reformats were then acquired. For radiation dose reduction, the following was used: automated exposure control, adjustment of mA and/or kV according to patient size. COMPARISON: [facility], CT, CT ABDOMEN RENAL PROTOCOL, 09/20/2024, 9:38. FINDINGS: Image quality: Diagnostic Lower chest: Unremarkable lung bases. Cardiomegaly and coronary calcifications. Liver: Unremarkable Gallbladder and biliary system: Unremarkable, nondilated Pancreas: No ductal dilation Spleen: Nonenlarged Adrenals: No discrete nodules Kidneys: 4 x 2.7 cm renal mass is present. This was previously 3.5 x 2.6 cm. No hydronephrosis. 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 Vessels and lymph nodes: The right renal vein appears patent. IVC appears patent. Portal vein appears patent. No abdominal aortic aneurysm. No enlarged lymph nodes by size criteria in the abdomen Bowel and peritoneum: Unremarkable. No bowel obstruction or ascites. Body wall: Unremarkable Bones: There are degenerative osseous changes. Suspect hemangioma again seen at L3. IMPRESSION: Minimally increased size of the right renal lesion compared to prior, suggestive of indolent slow growth. No definite metastatic disease identified in the abdomen. Right renal vein appears patent. Dictated by: Edson Johnson M.D. on 06/21/2025 at 12:43 Approved by: Edson Johnson M.D. on 06/21/2025 at 12:49
[2025-06-20 16:00] LABS: Estimated Glomerular Filt Rate 49 mL/min (>60)
== END ==
LOC: CT 15:00
PROVIDERS: PCP Internal Medicine; Referring Provider Urology; Visit Provider Urology
DX: N28.9 Disorder of kidney and ureter, unspecified (principal)
CPT/HCPCS: 36415; 74170; 82565; Q9967

== ENCOUNTER → 2025-07-09 11:43 | Outpatient (CLI) | payer MEDICARE, OTHER, SELFPAY ==
[2023-10-17 22:29] VITALS: BMI 29.6
[2025-07-09 12:48] LABS: Blood Urea Nitrogen 22 mg/dL (7-17); Calcium 9.6 mg/dL (8.4-10.2); Carbon Dioxide 21 mmol/L (22-32); Chloride 110 mmol/L (98-107); Estimated Glomerular Filt Rate 54 mL/min (>60); Glucose 87 mg/dL (70-99); HEMOLYSIS < 15 (0-50); Potassium 4.2 mmol/L (3.4-5.1); Sodium 139 mmol/L (137-145)
== END ==
PROVIDERS: PCP Internal Medicine; Referring Provider Urology; Visit Provider Urology
DX: R79.89 Other specified abnormal findings of blood chemistry (principal); N28.9 Disorder of kidney and ureter, unspecified
CPT/HCPCS: 36415; 80048